=== PATIENT | female | born 1965 | race Two or more races ===

== ENCOUNTER 2017-09-19 23:07 | Emergency (ER) | payer MEDICAID ==
[~2017-09-19] VITALS: Ht 160 cm; Wt 98.9 kg
[2017-09-20 02:23] LABS: Basophils # (auto) 0 uL; Basophils % (auto) 0.4 % (0.0-2.0); Eosinophils # (auto) 0.1 uL; Eosinophils % (auto) 1.8 % (0.0-7.0); Hematocrit 41.3 % (36.0-46.0); Hemoglobin 14.4 g/dL (12.2-16.2); Lymphocytes # (auto) 2.4 uL; Lymphocytes % (auto) 31.4 % (10.0-50.0); Mean Corpuscular Hemoglobin 30.3 pg (28.0-32.0); Mean Corpuscular Hgb Conc. 34.9 g/dL (32.0-36.0); Mean Corpuscular Volume 86.9 fL (80.0-100.0); Monocytes # (auto) 0.4 uL; Monocytes % (auto) 5.7 % (0.0-12.0); Neutrophils # (auto) 4.7 uL; Neutrophils % (auto) 60.7 % (37.0-80.0); Nucleated Red Blood Cells % 0.2 %; Platelet Count (auto) 215 10^3/uL (140-450); Red Blood Cells 4.75 10^6/uL (4.0-5.20); Red Cell Distribution Width 13.4 % (11.8-14.3); White Blood Cell 7.8 10^3/uL (4.4-10.8)
[2017-09-20] MEDS ORDERED: InsuLIN REG 1unit/0.01ml Soln (100units/ml) IV ONE (02:30)
[2017-09-20] MEDS ORDERED: SODIUM CHLORIDE 0.9% 1,000 ML IV ONE (02:30)
[2017-09-20 02:38] LABS: Calcium 8.7 mg/dL (8.5-10.1); Potassium 4.5 mmol/L (3.5-5.1)
[2017-09-20 02:41] LABS: BUN/Creatinine Ratio 19.2; Bilirubin, Total 0.4 mg/dL (0.2-1.0); Total Protein 7.3 g/dL (6.4-8.2)
[2017-09-20 02:58] LABS: Urine Bacteria FEW /hpf (None Seen); Urine Blood 1+ /uL (Negative); Urine Hyaline Cast FEW /lpf (0 - 2); Urine Mucus FEW (None Seen); Urine Specific Gravity 1.031 (1.001-1.035); Urine WBC 39 /hpf (0 - 5)
[2017-09-20 05:13] VITALS: BP 116/77
== END 2017-09-20 05:03 | disposition home or self-care (01) ==
LOC: ER 23:13
DX: E11.65 Type 2 diabetes mellitus with hyperglycemia (principal); K31.9 Disease of stomach and duodenum, unspecified; E11.43 Type 2 diabetes mellitus with diabetic autonomic (poly)neuropathy; K31.84 Gastroparesis; N39.0 Urinary tract infection, site not specified; I10 Essential (primary) hypertension; Z79.4 Long term (current) use of insulin
CPT/HCPCS: 36415; 80053; 81001; 82010; 82962; 83036; 85025; 96361; 96374; 99284; J1815

== ENCOUNTER 2017-10-03 23:31 | Emergency (ER) | payer MEDICAID ==
[~2017-10-03] VITALS: Ht 160 cm; Wt 102.1 kg
[2017-10-04 00:36] LABS: Basophils # (auto) 0.1 uL; Basophils % (auto) 0.9 % (0.0-2.0); Eosinophils # (auto) 0.2 uL; Eosinophils % (auto) 2.4 % (0.0-7.0); Hematocrit 41.9 % (36.0-46.0); Hemoglobin 14.3 g/dL (12.2-16.2); Lymphocytes # (auto) 2.6 uL; Lymphocytes % (auto) 34.7 % (10.0-50.0); Mean Corpuscular Hemoglobin 29.8 pg (28.0-32.0); Mean Corpuscular Hgb Conc. 34.2 g/dL (32.0-36.0); Monocytes # (auto) 0.4 uL; Monocytes % (auto) 5.1 % (0.0-12.0); Neutrophils # (auto) 4.3 uL; Neutrophils % (auto) 56.9 % (37.0-80.0); Platelet Count (auto) 234 10^3/uL (140-450); Red Blood Cells 4.82 10^6/uL (4.0-5.20); Red Cell Distribution Width 13.4 % (11.8-14.3); White Blood Cell 7.5 10^3/uL (4.4-10.8)
[2017-10-04 00:56] LABS: Albumin 3.3 g/dL (3.4-5.0); Calcium 9.1 mg/dL (8.5-10.1); Potassium 4.1 mmol/L (3.5-5.1)
[2017-10-04 00:59] LABS: Bilirubin, Total 0.4 mg/dL (0.2-1.0); Total Protein 7.8 g/dL (6.4-8.2)
[2017-10-04] MEDS ORDERED: SODIUM CHLORIDE 0.9% 1,000 ML IVB ONE (02:34)
[2017-10-04] MEDS ORDERED: InsuLIN REG 1unit/0.01ml Soln (100units/ml) IV ONE (02:45)
[2017-10-04 02:56] LABS: Urine Bacteria FEW /hpf (None Seen); Urine Blood 1+ /uL (Negative); Urine WBC 30 /hpf (0 - 5)
[2017-10-04 04:11] VITALS: BP 124/88
[2017-10-04] MEDS ORDERED: CEFTRIAXONE SODIUM 2 GM in D5W 5% 50 ML IV ONE (04:30)
[2017-10-04] MEDS ORDERED: cefTRIAXone 1GM/10ml IVPUSH 20 ML IV ONE (04:36)
== END 2017-10-04 05:39 | disposition home or self-care (01) ==
LOC: ER 23:41
DX: E11.65 Type 2 diabetes mellitus with hyperglycemia (principal); N39.0 Urinary tract infection, site not specified; I10 Essential (primary) hypertension
CPT/HCPCS: 36415; 80053; 81001; 82962; 85025; 96361; 96365; 96375; 99285; J1815; J0696; J7060

== ENCOUNTER 2019-11-08 17:25 | Inpatient (IN) | payer MEDICAID ==
[~2019-11-08] VITALS: Ht 175.3 cm; Wt 104.7 kg
[2019-11-08 18:27] LABS: Basophils # (auto) 0.1 10 ^3/uL (0-0.2); Basophils % (auto) 0.7 % (0.0-2.0); Eosinophils # (auto) 0.3 10 ^3/uL (0-0.8); Eosinophils % (auto) 3.7 % (0.0-7.0); Hematocrit 27.6 % (36.0-46.0); Hemoglobin 9.2 g/dL (12.2-16.2); Lymphocytes # (auto) 1.7 10 ^3/uL (0.4-5.4); Lymphocytes % (auto) 20.1 % (10.0-50.0); Mean Corpuscular Hemoglobin 29.4 pg (28.0-32.0); Mean Corpuscular Hgb Conc. 33.3 g/dL (32.0-36.0); Mean Corpuscular Volume 88.4 fL (80.0-100.0); Monocytes # (auto) 0.5 10 ^3/uL (0-1.3); Monocytes % (auto) 5.8 % (0.0-12.0); Neutrophils # (auto) 5.8 10 ^3/uL (1.6-8.6); Neutrophils % (auto) 69.7 % (37.0-80.0); Nucleated Red Blood Cells % 0.1 %; Platelet Count (auto) 238 10^3/uL (140-450); Red Blood Cells 3.12 10^6/uL (4.0-5.20); White Blood Cell 8.3 10^3/uL (4.4-10.8)
[2019-11-08 18:44] LABS: Albumin 2.5 g/dL (3.4-5.0); Calcium 8.1 mg/dL (8.5-10.1)
[2019-11-08 18:54] LABS: BUN/Creatinine Ratio 23.6; Bilirubin, Total 0.2 mg/dL (0.2-1.0)
[2019-11-08 18:58] LABS: Potassium 6.3 mmol/L (3.5-5.1)
[2019-11-08] MEDS ORDERED: SODIUM BICARBONATE 8.4 % INJ 50ML VIAL IV ONE (19:15)
[2019-11-08] MEDS ORDERED: CALCIUM GLUC 4.65meq/50ml D5AE 50 ML IV ONE (19:15)
[2019-11-08] MEDS ORDERED: SODIUM BICARBONATE 8.4% INJ 50ML SYRINGE ONE (19:51)
[2019-11-08] MEDS ORDERED: SODIUM ZIRCONIUM CYCL 10 GM PAK PO ONE (20:45)
[2019-11-08] MEDS ORDERED: DEXTROSE (50%) 50ML SYRG IV ONE (20:45)
[2019-11-08] MEDS ORDERED: InsuLIN REG 1unit/0.01ml Soln (100units/ml) IV ONE (20:45)
[2019-11-08] MEDS ORDERED: TEMAZEPAM 15 MG CAP PO PRN (21:00)
[2019-11-08] MEDS ORDERED: ACETAMINOPHEN 325 MG TAB PO PRN (21:00)
[2019-11-08] MEDS ORDERED: ONDANSETRON HCL 4 MG/2 ML VIAL IV PRN (21:00)
[2019-11-08] MEDS ORDERED: cloNIDine HCL 0.1 MG TAB PO PRN (21:00)
[2019-11-08] MEDS ORDERED: DEXTROSE (50%) 50ML SYRG IV PRN (21:00)
[2019-11-08] MEDS ORDERED: NITROGLYCERIN 0.4 MG SL TAB SL PRN (21:45)
[2019-11-08] MEDS ORDERED: MORPHINE SULF INJ 2 MG/ML SYRINGE 1ML IV PRN (21:45)
[2019-11-08] MEDS: InsuLIN REG 1unit/0.01ml Soln (100units/ml) SC SCH (22:00)
[2019-11-08] MEDS: ACCU-CHEK COMFORT CURVE STRIP VI SCH (22:23)
[2019-11-09] VITALS (9 sets, daily range): BP systolic 124–165; BP diastolic 67–81
--- NOTE | 2019-11-09 | NUR ---
Telemetry admit from [facility] admitted to Telemetry unit after SBAR received. Patient oriented to Isabela Beard, RN primary RN, unit, room, bed, and unit policies regarding patient care and visiting hours. Patient now on continuous telemetry monitoring, tele box # [id number] and telemetry reading on arrival to unit is SR. Patient weighed by bedscale and encouraged to call if they need something. All questions and concerns addressed, patient verbalized understanding, will continue to monitor Note: []
--- NOTE | 2019-11-09 00:30 | NUR ---
Patient refused for primary RN to check wounds and take pictures of it. Per patient, she had diabetic foot ulcer on left heel and right great toe. Per patient, she doesn't want anybody touch her wounds despite explaining the reason for checking it. Noted dressing dry and intact, will continue to monitor
--- NOTE | 2019-11-09 00:31 | NUR ---
Pictures of wounds were not taken at this time
[2019-11-09] MEDS ORDERED: GLIP5TAB12 PO (02:16)
[2019-11-09] MEDS ORDERED: LISI10TA6 PO (02:16)
[2019-11-09] MEDS ORDERED: METF-371 PO (02:16)
[2019-11-09] MEDS: ACCU-CHEK COMFORT CURVE STRIP VI SCH ×4 (05:53→21:54)
[2019-11-09] MEDS: InsuLIN REG 1unit/0.01ml Soln (100units/ml) SC SCH ×4 (05:53→22:00)
[2019-11-09 06:19] LABS: BUN/Creatinine Ratio 27.1; Calcium 8.3 mg/dL (8.5-10.1); Potassium 5.4 mmol/L (3.5-5.1)
[2019-11-09 06:26] LABS: Basophils # (auto) 0 10 ^3/uL (0-0.2); Basophils % (auto) 0.6 % (0.0-2.0); Eosinophils # (auto) 0.3 10 ^3/uL (0-0.8); Eosinophils % (auto) 3.7 % (0.0-7.0); Hematocrit 25.4 % (36.0-46.0); Hemoglobin 8.7 g/dL (12.2-16.2); Lymphocytes # (auto) 1.6 10 ^3/uL (0.4-5.4); Lymphocytes % (auto) 23.9 % (10.0-50.0); Mean Corpuscular Hemoglobin 30.2 pg (28.0-32.0); Mean Corpuscular Hgb Conc. 34.1 g/dL (32.0-36.0); Mean Corpuscular Volume 88.7 fL (80.0-100.0); Monocytes # (auto) 0.4 10 ^3/uL (0-1.3); Monocytes % (auto) 5.8 % (0.0-12.0); Neutrophils # (auto) 4.4 10 ^3/uL (1.6-8.6); Nucleated Red Blood Cells % 0.1 %; Platelet Count (auto) 214 10^3/uL (140-450); Red Blood Cells 2.87 10^6/uL (4.0-5.20); Red Cell Distribution Width 13.9 % (11.8-14.3); White Blood Cell 6.7 10^3/uL (4.4-10.8)
--- NOTE | 2019-11-09 08:00 | NUR ---
RECEIVED PATIENT ALERT AND ORIENTED X4, NOT IN DISTRESS, CLEAR LS IN BILATERAL UPPER AND LOWER LUNG LOBES, RR=16 SAT=96%, DEEP BREATHING AND COUGHING WAS ENCOURAGED, DEMONSTRATED AND VERBALIZED UNDERSTANDING, DENIED CP AND SOB, SR R=78 N TELE MONITOR, ABDOMEN SOFT WITH ACTIVE BS, TOLERATED 100% OF PROVIDED BREAKFAST TRAY, LAST BM=11/08/19 REPORTED, GENERAL SKIN INTACT WARM TO TOUCH, REDIAL AND PEDAL PULSES PALPABLE, CAP REFILL <3 SECONDS, LT. HEEL AND RT, BIG TOE WOUND NOTED, REFUSED WOUND ASSESSMENT, PENDING WOUND ASSESSMENT, WOUND ASSESSMENT EDUCATION PROVIDED, VERBALIZED UNDERSTANDING, RESTING ON BED AND WATCHING TV AT THIS MOMENT, HEAD OF BED ELEVATED, BED ON LOW POSITION, RAILS UP X2, CALL LIGHT ON REACH, PENDING SS AND NEPHRO CONSULT, POTASSIUM L=5.4, HOSPITALIST WAS PAGED AND WAITING FOR CALL BACK, WILL CONTINUE MONITORING.
[2019-11-09] MEDS ORDERED: FUROSEMIDE 40 MG/4 ML VIAL IV ONE ×2 (08:15→15:45)
--- NOTE | 2019-11-09 09:00 | NUR ---
DR. CORDOVA CALLED BACK, PENDING LASIX IV X1 ORDERED, WILL CONTINUE MONITORING.
[2019-11-09] MEDS ORDERED: SODIUM CHLORIDE 0.9% 1,000 ML IV SCH ×2 (10:00→14:00)
[2019-11-09] MEDS: PANTOPRAZOLE 40 MG TAB PO SCH (10:38)
--- NOTE | 2019-11-09 12:52 | NUR ---
Not in distress, denied pain, at 1200 CG=543/81 P=74 t=97.7 RR=20 Sat=97%, rechecked ZR=191/82 P=77, Clonidine PO PRN was given as ordered, wound consult and wound care was done by wound care nurse, tolerated and cooperated well, resting on bed, will continue monitoring.
--- NOTE | 2019-11-09 13:00 | NUR ---
WOUND CARE NOTE: IN TO SEE PATIENT PER WOUND CONSULT REQUEST AT THIS TIME. PATIENT RECENTLY ADMITTED TO [facility] WITH DIAGNOSIS OF ACUTE RENAL FAILURE WITH HYPERKALEMIA. PATIENT HAS CURRENT RALPH SCORE OF 17. PATIENT IS NOTED TO BE FULLY AMBULATORY, CAN SELF TURN/REPOSITION SELF. PATIENT NOTED TO HAVE WOUNDS TO BILATERAL FEET UPON INITIAL ASSESSMENT MADE AT TIME OF ADMIT. PATIENT REFUSED WOUND PHOTOS AT THAT TIME. PATIENT STATES THAT SHE RECEIVES HOME HEALTH CARE DRESSING CHANGES TO WOUND ON LEFT PLANTAR HEEL 3 X WEEKLY. SHE IS ALSO AWAITING AUTHORIZATION FOR FURTHER WOUND CARE TO BE DONE WITH PHYSICIANS AT [facility] OUT PATIENT CLINIC, AND DESIRES FOR MAINTENANCE OF WOUND/DRESSING CHANGES TO BE DONE WHILE IN THE HOSPITAL, REFUSING CONSULTATION BY DIRECTOR DIGITAL. PATIENT IS NOTED TO HAVE A LARGE 6 X 6 X1 CM DFU ULCER TO LEFT PLANTAR HEEL. WOUND HAS LARGE CALLOUS RING, HARD PLACK ESCHAR FROM 1200 TO 0500. REMAINING WOUND BED IS PALE RED. LIGHT TO MODERATE SEROUS DRAINAGE NOTED ON WOUND DRESSING, MILD ODOR. WOUND PHOTO TAKEN AT THIS TIME FOR REFERENCE. CLEANSED WITH WOUND CLEANSER, PATTED DRY, APPLIED THERAHONEY, OPTIFOAM AG TO WOUND. WRAPPED FOOT WITH KERLIX, SECURING WITH TAPE. FOAM OFFLOADING BOOT APPLIED. RIGHT PLANTAR # 1 TOE IS NOTED TO HAVE A DFU, CLOSED WITH 1 X 1 CM PINK CALLOUS. LEFT OPEN TO AIR. RECOMMEND: EOD/PRN DRESSING CHANGE TO LEFT FOOT WOUND, FOAM OFFLOADING BOOT TO LEFT FOOT, DIETARY CONSULT, ELEVATION TO LEFT FOOT UP ONTO PILLOWS WHEN IN BED, SKIN/WOUND CARE PLAN, CONTINUED MONITORING BY WOUND CARE TEAM, FOLLOW UP WITH [facility] OUT PATIENT WOUND CARE CLINIC AND HOME HEALTH CARE NURSE POST DISCHARGE. Addendum: 11/09/19 at 1338 by Hilda Soto RN Amended: Links added.
[2019-11-09] MEDS ORDERED: hydrALAZINE HCL 20 MG/ML VL IV PRN (14:15)
--- NOTE | 2019-11-09 14:20 | NUR ---
assessment re: pallavi consult lives in a board and care and dc planning Patient is a 54 year old female who is alert and oriented. Patients cognitive abilities are intact. Prior to admission patient lived home at a room and board and functioned independently. Patient informed me she is able to care for her own ADLs. Per patient she will return home to her prior living arrangements post discharge and she will drive herself home. Patient has a fww for home use. Patients PCP is Dr Pavon. Patient has no safety concerns regarding returning home. Patient has no post discharge needs identified. I informed patient she has a right to speak to a social media coordinator regarding all care. I informed patient she has a right to participate in any and all discharge planning. Patient does not have a POA and advanced directive. I have offered patient information on POA and advanced directives. I informed the patient the advantages and benefits of having an Advanced Directive. Patient verbalized understanding and agreed to discharge plan. Addendum: 11/09/19 at 1425 by Heather BARNETT Amended: Links added.
--- NOTE | 2019-11-09 14:29 | NUR ---
NOT IN DISTRESS, DENIED PAIN VS T=97.4 RR=18 SAT=96% P=65 BP= 122/65, RESTING AND SLEEPING ON BED AT THIS MOMENT, WILL CONTINUE MONITORING.
--- NOTE | 2019-11-09 15:30 | NUR ---
POTASSIUM L=5.9 REPORTED, DR. CARBAJAL WAS NOTIFIED AND AWARE, PENDING LASIX IV ORDERED, WILL CONTINUE MONITORING.
[2019-11-09 15:33] LABS: % Iron Saturation 19.8 % (15-50)
--- NOTE | 2019-11-09 15:43 | NUR ---
POSITIVE MRSA NARES REPORTED, DR. WHITING WAS PAGED FOR NOTIFICATION AND FOLLOW UP,WAITING FOR CALL BACK, CHARGE NURSE BUCKY WAS NOTIFIED AND AWARE, WILL CONTINUE MONITORING.
[2019-11-09] MEDS ORDERED: InsuLIN REG 1unit/0.01ml Soln (100units/ml) IV ONE (15:45)
[2019-11-09] MEDS ORDERED: ALBUTEROL SULF 2.5 MG/0.5ML(0.5%) NEB SOLN NEB ONE (15:45)
[2019-11-09] MEDS ORDERED: SODIUM BICARBONATE 8.4% INJ 50ML SYRINGE IV ONE (15:45)
[2019-11-09] MEDS ORDERED: SODIUM ZIRCONIUM CYCL 10 GM PAK PO ONE (15:45)
[2019-11-09] MEDS ORDERED: CALCIUM GLUC 4.65meq/50ml D5AE 50 ML IV ONE (15:45)
[2019-11-09] MEDS ORDERED: SODIUM BICARBONATE 650 MG TAB PO ONE (15:45)
[2019-11-09] MEDS ORDERED: DEXTROSE (50%) 50ML SYRG IV ONE (15:45)
[2019-11-09] MEDS: SODIUM BICARBONATE 650 MG TAB PO SCH ×2 (18:12→21:42)
[2019-11-09] MEDS ORDERED: amLODIPine BESYLATE 5 MG TAB PO ONE (18:30)
--- NOTE | 2019-11-09 19:22 | NUR ---
NOT IN DISTRESS, DENIED PAIN, SITTING ON BED EATING DINNER, REPORT WAS GIVEN TO THE COMPENSATION AND HRIS ANALYST RN.
--- NOTE | 2019-11-09 19:40 | NUR ---
Opening Shift Note Assumed care of patient, awake and alert. No S/S of distress/SOB or pain. Instructed on POC and to call for assist PRN, patient verbalized understanding, call light within reach, will continue to monitor for changes Q1hr and PRN.
[2019-11-09 20:15] LABS: Calcium 8.2 mg/dL (8.5-10.1); Potassium 4.4 mmol/L (3.5-5.1)
[2019-11-09 20:19] LABS: BUN/Creatinine Ratio 26.3
[2019-11-09] MEDS: METOPROLOL TARTRATE 25 MG TAB PO SCH (21:44)
[2019-11-09] MEDS: SODIUM ZIRCONIUM CYCL 10 GM PAK PO SCH (22:00)
[2019-11-10 05:00] VITALS: BP 142/68
[2019-11-10] MEDS: SODIUM ZIRCONIUM CYCL 10 GM PAK PO SCH ×3 (05:37→21:19)
[2019-11-10] MEDS: SODIUM BICARBONATE 650 MG TAB PO SCH ×4 (05:37→21:20)
[2019-11-10] MEDS: ACCU-CHEK COMFORT CURVE STRIP VI SCH ×4 (06:43→21:20)
[2019-11-10] MEDS: InsuLIN REG 1unit/0.01ml Soln (100units/ml) SC SCH ×4 (07:02→21:31)
--- NOTE | 2019-11-10 07:02 | NUR ---
IV on LAC leaking, removed aseptically with catheter intact, patient tolerated well IV insertion IV access obtained, via clean sterile technique by inserting 22 gauge catheter at after [1] attempt(s). IV secured properly. No trauma to site. Patient tolerated well. NOTE: []
--- NOTE | 2019-11-10 08:00 | NUR ---
RECEIVED PATIENT ALERT AND ORIENTED, NOT IN DISTRESS, CLEAR LS IN BILATERAL UPPER AND LOWER LUNG LOBES,DEEP BREATHING AND COUGHING ENCOURAGED, DEMONSTRATED AND VERBALIZED UNDERSTANDING, RR=18 SAT=97%, SR ON TELE MONITOR R=78, ABDOMEN SOFT AND ROUND WITH HYPOACTIVE BS, LAST BM=07/10/19 REPORTED, SKIN INTACT WARM TO TOUCH, RADIAL AND PEDAL PULSES PALPABLE, CAP REFILL <3 SECONDS, RT. TOE AND LT. HEEL WOUNDS COVERED WITH DRY AND INTACT DRESSINGS, NEXT WOUND DRESSING CHANGE IS ON 11/11/19 ORDERED, DENIED PAIN, SITTING ON BED EATING BREAKFAST, TOLERATING WELL, HEAD OF BED ELEVATED, BED ON LOW POSITION, RAILS UP X2, CALL LIGHT ON REACH, WILL CONTINUE MONITORING.
[2019-11-10 08:05] LABS: Hematocrit 24.7 % (36.0-46.0); Hemoglobin 8.5 g/dL (12.2-16.2)
[2019-11-10 08:28] LABS: Calcium 8.2 mg/dL (8.5-10.1); Potassium 5.4 mmol/L (3.5-5.1)
[2019-11-10 08:34] LABS: Magnesium 2.9 mg/dL (1.6-2.6)
[2019-11-10 08:47] VITALS: BP 146/72
[2019-11-10] MEDS ORDERED: ALBUTEROL SULF 2.5 MG/0.5ML(0.5%) NEB SOLN NEB ONE (09:15)
[2019-11-10] MEDS ORDERED: FUROSEMIDE 40 MG/4 ML VIAL IV ONE (09:15)
--- NOTE | 2019-11-10 09:15 | NUR ---
OUT OFF BED ENCOURAGED, COOPERATED WELL, AMBULATED WITH WALKER AROUND THE UNIT X2, BACK TO THE ROOM SITTING ON THE CHAIR AND WATCHING TV AT THIS MOMENT.
--- NOTE | 2019-11-10 09:34 | NUR ---
Respiratory note: At bedside to administer medneb tx for hyperkalemia, pt tolerating well, no adverse reactions noted. HR 75, RR 18, SPO2 97% on room air. Breath sounds clear throughout, pt denies SOB, no s/s of respiratory distress noted.
[2019-11-10] MEDS: ASPirin 81 mg TAB PO SCH (09:57)
[2019-11-10] MEDS: METOPROLOL TARTRATE 25 MG TAB PO SCH ×2 (09:58→21:20)
[2019-11-10] MEDS: PANTOPRAZOLE 40 MG TAB PO SCH (09:59)
[2019-11-10] MEDS: amLODIPine BESYLATE 5 MG TAB PO SCH (09:59)
[2019-11-10 12:45] VITALS: BP 116/56
--- NOTE | 2019-11-10 14:00 | NUR ---
POTASSIUM L=5.4, DR. RAVEN Kendrick WAS NOTIFIED AND AWARE, NOT IN DISTRESS DENIED PAIN, WILL CONTINUE MONITORING.
[2019-11-10 15:28] VITALS: BP 131/70
[2019-11-10 16:39] VITALS: BP 129/68
[2019-11-10] MEDS ORDERED: LACTULOSE 20Gm/30ML SOLN PO ONE (18:45)
--- NOTE | 2019-11-10 19:15 | NUR ---
PENDING LACTULOSE PO X1, WILL BE GIVEN AT 2100 REQUESTED BY PATIENT, NOT IN DISTRESS, DENIED PAIN, RESTING ON BED, REPORT WAS GIVEN TO THE LAW FIRM PARTNER RN.
--- NOTE | 2019-11-10 19:36 | NUR ---
Opening Shift Note Received report and assumed care of patient. Patient is awake and alert. No signs or symptoms of distress noted, patient currently denies pain. Instructed patient on plan of care and to call for assistance as needed. Will continue to monitor.
[2019-11-10] MEDS: MUPIROCIN 2% OINT 15gm or 22gm EACHNOSTRI SCH (21:20)
[2019-11-10 21:59] VITALS: BP 122/72
[2019-11-10] MEDS ORDERED: ATORVASTATIN 20 MG TAB PO SCH (22:00)
[2019-11-11 05:00] VITALS: BP 124/67
[2019-11-11] MEDS: SODIUM ZIRCONIUM CYCL 10 GM PAK PO SCH ×2 (06:17→14:00)
[2019-11-11] MEDS: SODIUM BICARBONATE 650 MG TAB PO SCH ×2 (06:17→13:00)
[2019-11-11 06:26] LABS: Potassium 4.7 mmol/L (3.5-5.1)
[2019-11-11] MEDS: InsuLIN REG 1unit/0.01ml Soln (100units/ml) SC SCH ×2 (06:26→12:00)
[2019-11-11] MEDS: ACCU-CHEK COMFORT CURVE STRIP VI SCH ×2 (06:26→12:00)
[2019-11-11 06:28] LABS: BUN/Creatinine Ratio 24.1
--- NOTE | 2019-11-11 07:15 | NUR ---
OPENING NOTE RECEIVED REPORT FROM NOC RN. PATIENT WAS ADMITTED R/T INCREASED POTASSIUM LEVELS. PATIENT IS RESTING IN BED QUIETLY WITHOUT C/O SEVERE PAIN AND OR DISTRESS.
[2019-11-11 09:00] VITALS: BP 136/67
[2019-11-11] MEDS: PANTOPRAZOLE 40 MG TAB PO SCH (10:00)
[2019-11-11] MEDS: ASPirin 81 mg TAB PO SCH (10:00)
[2019-11-11] MEDS: amLODIPine BESYLATE 5 MG TAB PO SCH (10:00)
[2019-11-11] MEDS: METOPROLOL TARTRATE 25 MG TAB PO SCH (10:00)
[2019-11-11] MEDS: MUPIROCIN 2% OINT 15gm or 22gm EACHNOSTRI SCH (12:30)
[2019-11-11 13:00] VITALS: BP 126/68
[2019-11-11] MEDS ORDERED: SODI650T PO (13:54)
[2019-11-11] MEDS ORDERED: PANT40T PO (13:54)
[2019-11-11] MEDS ORDERED: MET25T PO (13:54)
[2019-11-11] MEDS ORDERED: ASPI81CH43 PO (13:54)
[2019-11-11] MEDS ORDERED: AML5T PO (13:54)
[2019-11-11] MEDS ORDERED: ATOR20TA50 PO (13:54)
[2019-11-11 15:25] VITALS: BP 126/68
--- NOTE | 2019-11-11 16:45 | NUR ---
PATIENT REFUSED RIGHT FOOT WOUND PICTURES
--- NOTE | 2019-11-11 16:55 | NUR ---
Discharge instructions given as ordered. Encourage to follow up with PMD as instructed. All questions and concerns addressed. Patient verbalized understanding. Medication reconciliation form completed and copy given to patient. IV removed with catheter intact, pressure dressing applied. Telemetry unit returned to ICU. Patient taken to [facility]HOU[facility] via ROLLATOR with all personal belongings, accompanied by staff, AND PATIENT THEN LEFT VIA ER WAITING ROOM, PATIENT STATED SHE COULD LEAVE ON HER OWN.. No distress noted at time of departure.
== END 2019-11-11 16:55 | disposition home or self-care (01) | DRG 469 ==
LOC: ER 17:25 → TELE 17:26 → TELE-WESTW 23:32
PROVIDERS: ADMIT Nurse Practitioner; ATTEND Internal Medicine
DX: N17.0 Acute kidney failure with tubular necrosis (principal); E11.22 Type 2 diabetes mellitus with diabetic chronic kidney disease; E11.51 Type 2 diabetes mellitus with diabetic peripheral angiopathy without gangrene; E44.1 Mild protein-calorie malnutrition; E11.621 Type 2 diabetes mellitus with foot ulcer; E66.01 Morbid (severe) obesity due to excess calories; E87.5 Hyperkalemia; I12.9 Hypertensive chronic kidney disease with stage 1 through stage 4 chronic kidney disease, or unspecified chronic kidney disease; N18.4 Chronic kidney disease, stage 4 (severe); L97.929 Non-pressure chronic ulcer of unspecified part of left lower leg with unspecified severity; Z68.34 Body mass index [BMI] 34.0-34.9, adult; D63.8 Anemia in other chronic diseases classified elsewhere; Z80.3 Family history of malignant neoplasm of breast; Z82.3 Family history of stroke; Z82.49 Family history of ischemic heart disease and other diseases of the circulatory system; Z83.3 Family history of diabetes mellitus; Z11.59 Encounter for screening for other viral diseases
CPT/HCPCS: 36415; 71045; 76775; 80048; 80053; 80061; 82962; 83036; 83540; 83550; 83735; 83880; 84132; 84443; 84484; 85014; 85018; 85025; 87081; 93005; 93306; 93926; 94640; 94644; 96365; 96375; 96376; G0378; J0610; J1815

== ENCOUNTER 2024-11-27 11:51 | Inpatient (IN) | payer MEDICARE, MEDICAID ==
[~2024-11-27] VITALS: Ht 160 cm; Wt 106.2 kg
[~2024-11-27 11:51] MED LIST: AML5T PO; ASPI81CH43 PO; ATOR20TA50 PO; MET25T PO; PANT40T PO; SODI650T PO
--- NOTE | 2024-11-27 12:27 | ED.PDOC ---
GI ASSESSMENT HPI Comments This is a 59 year old female presenting to the ED with chief complaint of abdominal pain. Patient reports that she has been experiencing abdominal pain with associated nausea, vomiting, constipation, and inability to void since last night. Patient relays that she took some gas medication prior to arrival. Patient denies any diarrhea, fever, chills, chest pain, SOB, or dysuria. Time Seen by MD: 12:24 Primary Care Provider: DR. REINA Reviewed Notes: Nurses Notes, Medications, Allergies Allergies: Coded Allergies: NO KNOWN ALLERGIES (Unverified , 09/19/17) Home Meds Active Scripts Pantoprazole Sodium Sesquihydr (Pantoprazole Sodium) 40 Mg Tab, 40 MG PO DAILY, #30 TAB Prov:LINDSAY WHITING MD 11/11/19 Sodium Bicarbonate (Sodium Bicarbonate) 650 Mg Tab, 650 MG PO BID, #60 TAB Prov:LINDSAY WHITING MD 11/11/19 Metoprolol Tartrate (Lopressor) 25 Mg Tb, 25 MG PO BID, #60 TAB Prov:LINDSAY WHITING MD 11/11/19 Atorvastatin Calcium (ATORVASTATIN CALCIUM) 20 Mg Tab, 20 MG PO HS, #30 TAB Prov:LINDSAY WHITING MD 11/11/19 Aspirin (Asa) 81 Mg Ch, 81 MG PO DAILY, #30 TAB.CHEW Prov:LINDSAY WHITING MD 11/11/19 Amlodipine Besylate (NORVASC TABLET) 5 Mg Tb, 10 MG PO DAILY, #30 TAB Prov:LINDSAY WHITING MD 11/11/19 Information Source: Patient Mode of Arrival: Ambulatory Timing: Hours Duration: Since onset Prehospital treatment: None Quality: Aching Vomitus: Watery Stool: Impaction Severity: Moderate Recent: None Recent Hx of: None Pain Location: Diffuse Modifying Factors: Nothing Associated sign and symptoms: Nausea, Vomiting, Constipation, Abdominal Pain Past Medical History PAST MEDICAL HISTORY: Anemia, CKF, DM, High Lipids, HTN Surgical History: Denies all surgeries DERMATOLOGY SPECIALIST History: Denies all DERMATOLOGY SPECIALIST Hx Family History Family History: Reviewed,noncontributory to illness, Family hx of DM, Family hx of HTN Social History Smoker: Non-Smoker Alcohol: Occasionally Drugs: Denies Drug Use Lives In: Home Constitutional: denies: chills, diaphoresis, fatigue, fever, malaise, sweats, weakness, others EENTM: denies: blurred vision, double vision, ear bleeding, ear discharge, ear drainage, ear pain, ear ringing, eye pain, eye redness, hearing loss, mouth pain, mouth swelling, nasal discharge, nose bleeding, nose congestion, nose pain, photophobia, tearing, throat pain, throat swelling, voice changes, others Respiratory: denies: cough, hemoptysis, orthopnea, SOB at rest, shortness of breath, SOB with excertion, stridor, wheezing, others Cardiovascular: denies: chest pain, dizzy spells, diaphoresis, Dyspnea on exertion, edema, irregular heart beat, left arm pain, lightheadedness, palpitations, PND, syncope, others Gastrointestinal: reports: abdominal pain, constipated, nausea, vomiting; denies: abdomen distended, blood streaked bowels, diarrhea, dysphagia, difficulty swallowing, hematemesis, melena, poor appetite, poor fluid intake, rectal bleeding, rectal pain, others Genitourinary: reports: others (Inability to void); denies: abnormal vagina bleeding, burning, dyspareunia, dysuria, flank pain, frequency, hematuria, incontinence, pain, , vagina discharge, urgency Neurological: denies: dizziness, fainting, headache, left sided numbness, left sided weakness, numbness, paresthesia, pre-existing deficit, right sided numbness, right sided weakness, seizure, speech problems, tingling, tremors, weakness, others Musculoskeletal: denies: back pain, gout, joint pain, joint swelling, muscle pain, muscle stiffness, neck pain, others Integumetry: denies: bruises, change in color, change in hair/nails, dryness, laceration, lesions, lumps, rash, wounds, others Allergic/Immunocompromised: denies: Difficulty Healing, Frequent Infections, Hives, Itching, others Hematologic/Lymphatic: denies: anemia, blood clots, easy bleeding, easy bruising, swollen glands, others Endocrine: denies: excessive hunger, excessive sweating, excessive thirst, excessive urination, flushing, intolerance to cold, intolerance to heat, unexplained weight gain, unexplained weight loss, others Psychiatric: denies: anxiety, bipolar disorder, depression, hopeless, panic d isorder, schizophrenia, sleepless, suicidal, others All Other Systems: Reviewed and Negative Physical Exam General Appearance: No Apparent Distress, Normal HEENT: Normal ENT Inspection, Pharynx Normal, TMs Normal, Other (Dry mucous membranes) Neck: Full Range of Motion, Non-Tender, Normal, Normal Inspection Respiratory: Chest Non-Tender, Lungs Clear, No Accessory Muscle Use, No Respiratory Distress, Normal Breath Sounds Cardiovascular: No Edema, No JVD, No Murmur, No Gallop, Normal Peripheral Pulses, Regular Rate/Rhythm Breast Exam: Deferred Gastrointestinal: No Organomegaly, Non Tender, No Pulsatile Mass, Soft, Other (Decreased bowel sounds, non-tender, no distention) Genitalia: Deferred Pelvic: Deferred Rectal: Deferred Extremities: No calf tenderness, Normal capillary refill, Normal inspection, Normal range of motion, Non-tender, No pedal edema Musculoskeletal : Apperance: Normal Neurologic: Alert, medicine man II-XII nml as Tested, No Motor Deficits, Normal Affect, Normal Mood, No Sensory Deficits Cerebellar Function: Normal Reflexes: Normal Skin: Dry, Normal Color, Warm Lymphatic: No Adenopathy Was a procedure done? Was a procedure done?: No GI differential Dx Differential Diagnosis: Appendicitis, Bowel Obstruction, Cholangitis, Cholecystitis, Constipation, Diverticular disease, Esophagitis, Gastritis/PUD, Gastroenteritis, GI hemorrhage, Hernia, Hepatitis, Inflammatory BD, Ischemic Bowel, Pancreatitis, Urinary Obstruction, UTI, Urolithiasis, Dehydration, Electrolyte Imbalance, Food Poisoning, Bacterial, Hypovolemia, Impaction, Renal Failure, Mass, Stress Ulcer, Kidney Stone X-Ray, Labs, Meds, VS Vital Signs Date Time Temp Pulse Resp B/P (MAP) Pulse Ox O2 Delivery O2 Flow Rate FiO2 11/27/24 12:15 98.7 79 18 111/59 (76) 96 98.7 Lab Test 11/27/24 15:45 11/27/24 14:53 Range/Units White Blood Count 21.5 H 4.4-10.8 10^3/uL Red Blood Count 3.58 L 4.0-5.20 10^6/uL Hemoglobin 11.5 L 12.2-16.2 g/dL Hematocrit 33.2 L 36.0-46.0 % Mean Corpuscular Volume 92.6 80.0-100.0 fL Mean Corpuscular Hemoglobin 32.1 H 28.0-32.0 pg Mean Corpuscular Hemoglobin Concent 34.7 32.0-36.0 g/dL Red Cell Distribution Width 14.0 11.8-14.3 % Platelet Count 222 140-450 10^3/uL Mean Platelet Volume 7.9 6.9-10.8 fL Neutrophils (%) (Auto) 91.7 H 37.0-80.0 % Lymphocytes (%) (Auto) 3.8 L 10.0-50.0 % Monocytes (%) (Auto) 4.1 0.0-12.0 % Eosinophils (%) (Auto) 0.0 0.0-7.0 % Basophils (%) (Auto) 0.4 0.0-2.0 % Neutrophils # (Auto) 19.7 H 1.6-8.6 10 ^3/uL Lymphocytes # (Auto) 0.8 0.4-5.4 10 ^3/uL Monocytes # (Auto) 0.9 0-1.3 10 ^3/uL Eosinophils # (Auto) 0 0-0.8 10 ^3/uL Basophils # (Auto) 0.1 0-0.2 10 ^3/uL Nucleated Red Blood Cells 0.0 % Sodium Level 135 L 136-145 mmol/L Potassium Level 3.7 3.5-5.1 mmol/L Chloride Level 93 L 98-107 mmol/L Carbon Dioxide Level 30 20-31 mmol/L Anion Gap 12 5-15 Blood Urea Nitrogen 41 H 9-23 mg/dL Creatinine 5.54 H 0.550-1.02 mg/dL Glomerular Filtration Rate Calc 8 >90 mL/min BUN/Creatinine Ratio 7.4 L 10.0-20.0 Serum Glucose 257 H 74-106 mg/dL Calcium Level 10.8 H 8.7-10.4 mg/dL Total Bilirubin 0.7 0.2-1.0 mg/dL Aspartate Amino Transferase (AST) 14 13-40 U/L Alanine Aminotransferase (ALT) 16 7-40 U/L Alkaline Phosphatase 101 46-116 U/L Total Protein 7.9 5.7-8.2 g/dL Albumin 4.8 3.2-4.8 g/dL Current Medications Medications (Trade) Dose Ordered Sig/Rios Route Start Time Stop Time Status Last Admin Ondansetron HCl (Zofran Po) 4 mg ONCE ONCE PO 11/27/24 14:30 11/27/24 14:39 DC 11/27/24 15:11 Metoclopramide HCl (Reglan Injection) 10 mg ONCE ONCE IV 11/27/24 15:45 11/27/24 15:46 DC 11/27/24 16:30 Time of 1ST Reevaluation: 13:13 Reevaluation 1ST: Unchanged Patient Education/Counseling: Diagnosis, Treatment, Prognosis, Need For Follow Up Family Education/Counseling: Diagnosis, Treatment, Prognosis, Need For Follow Up Comments pt has obstructive uropathy from ureteral stones, with nausea, vomiting, leukocytosis. although pt is on HD, she reports that she still makes urine, but now is unable to make urine. the possibility of an infection above the level of the obstruction exists. pt will be admitted for urological consult, antibiotic, symptom control Additional Information Reviewed patient's previous visit(s): 11/07/24 for acute renal failure The following tests were ordered, and results were reviewed by me: Additional information was gathered from interviewing the following independent historian: I reviewed and agreed with the following test results read by other provider: I discussed treatments and results with medical personnel and: Patient Comprehensive systems review obtained and negative except for what is stated in the HPI. SEPSIS Sepsis Screen Physician Orders Kub Abdomen Single View (11/27/24 14:30) Urinalysis (11/27/24 15:43) Ct Ab Pel Wo Con-No Oral Or Iv (11/27/24 15:43) Sodium Chloride 0.9% (11/27/24 16:45) Ceftriaxone 1gm/50ml D5w (Rocephin) (11/27/24 16:45) Vital Signs Date Time Temp Pulse Resp B/P (MAP) Pulse Ox O2 Delivery O2 Flow Rate FiO2 11/27/24 12:15 98.7 79 18 111/59 (76) 96 98.7 Laboratory Tests Test 11/27/24 15:45 White Blood Count 21.5 10^3/uL (4.4-10.8) H Medications Medications Dose Ordered Sig/Rios Route Start Time Stop Time Status Last Admin Dose Admin Metoclopramide HCl 10 mg ONCE ONCE IV 11/27/24 15:45 11/27/24 15:46 DC 11/27/24 16:30 Ondansetron HCl 4 mg ONCE ONCE PO 11/27/24 14:30 11/27/24 14:39 DC 11/27/24 15:11 Departure 1 Departure Time of Disposition: 16:41 Impression: Primary Impression: Obstructed, uropathy Additional Impressions: Nausea & vomiting Qualified Codes: R11.2 - Nausea with vomiting, unspecified Leukocytosis Qualified Codes: D72.829 - Elevated white blood cell count, unspecified Disposition: 09 ADMITTED INPATIENT Admit to: Med Surg Condition: Serious Discharged With: Self Critical Care Note Critical Care Time?: Yes (55 min-critical care time only) Critical care comment: Due to concerns for patients condition deteriorating, the care required my highest level of attention and readiness to intervene. I assessed the patient, reviewed the medical records, ordered the appropriate tests and treatments, then reassessed for results and responsiveness. I communicated with medical personnel and consultants and formulated a plan of care. Total critical care time excludes any procedures Stability Stability form required: No Heart Score Heart Score: Heart Score Response (Comments) Value History N/A 0 EKG N/A 0 Age N/A 0 Risk Factors N/A 0 Troponin N/A 0 Total 0 I personally scribed for MARIO LOVE MD ([email or web address]) on 11/27/24 at 12:27. Electronically submitted by Jun Moses ([email or web address]). MARIO LOVE MD Nov 27, 2024 12:27
[2024-11-27 14:55] LABS: Hematocrit 33.2 % (36.0-46.0); Hemoglobin 11.5 g/dL (12.2-16.2); Mean Corpuscular Hemoglobin 32.1 pg (28.0-32.0); Mean Corpuscular Volume 92.6 fL (80.0-100.0); Nucleated Red Blood Cells % 0.0 %
[2024-11-27] MEDS: ONDANSETRON ODT 4 MG TAB PO ONE (15:11)
[2024-11-27 15:15] LABS: Alanine Aminotransferase 16 U/L (7-40); Alkaline Phosphatase 101 U/L (46-116); Anion Gap 12 (5-15); BUN/Creatinine Ratio 7.4 (10.0-20.0); Carbon Dioxide 30 mmol/L (20-31); Potassium 3.7 mmol/L (3.5-5.1); Total Protein 7.9 g/dL (5.7-8.2)
[2024-11-27 15:16] LABS: Bilirubin, Total 0.7 mg/dL (0.2-1.0)
[2024-11-27 15:18] LABS: Albumin 4.8 g/dL (3.2-4.8); Blood Urea Nitrogen 41 mg/dL (9-23); Calcium 10.8 mg/dL (8.7-10.4); Chloride 93 mmol/L (98-107); Glucose 257 mg/dL (74-106); Sodium 135 mmol/L (136-145)
--- NOTE | 2024-11-27 15:46 | DVH ---
CLINICAL HISTORY: Rule out constipation. TECHNIQUE: 2 AP abdominal radiographs were obtained. COMPARISON: None FINDINGS: No dilated small bowel loops are seen. There is gas and a small to moderate amount of stoo l in the colon. No free air visualized under the diaphragm on the AP upright view. No significant claudia cifications are seen. Visualized portions of the lung bases demonstrate mild atelectasis. IMPRESSION: 1. Nonspecific nonobstructive bowel gas pattern. 2. Stool burden is within the range of normal.
--- NOTE | 2024-11-27 16:23 | DVH ---
Exam: CT CT AB PEL WO CON-NO ORAL OR IV History: nausea vomiting Comparison Study: None Technique: Multidetector spiral CT of the abdomen and pelvis was performed from lung bases to pubic symphysis. Imaging was performed without IV contrast. Axial, coronal and sagittal multiplanar reform ats were obtained from the axial data set by the technologist. Radiation dose : Abdomen/Pelvis: CTDIvol 26.28 mGy, DLP 1379.77 mGy*cm. Findings: Evaluation of solid organs is limited due to lack of intravenous contrast use. Lung Bases: No acute or significant lung base finding. Normal heart size. No pleural or pericardial effusion. Liver: The liver is normal in size. No focal lesions. Gallbladder and biliary Tree: Cholelithiasis noted without secondary findings of cholecystitis or lima iary obstruction. Spleen: Unremarkable Pancreas: The pancreas is grossly normal in appearance. Adrenal Glands: Unremarkable Kidneys: Moderate left hydronephrosis and hydroureter. Calculus in the left renal pelvis measuring up to 9 mm. Calculus in the mid left ureter measuring up to 4 mm. Associated perinephric and periurete ral stranding. Other left renal calculi are noted. Mild right hydronephrosis. Calculus in the right renal pelvis measuring up to 10 mm. Other right renal calculi noted. Mild right perinephric stranding . Bladder: Grossly unremarkable for degree of distention. Bowel: The stomach is grossly normal in appearance. Small bowel and colon are normal in caliber and d istribution. Normal appendix is visualized in the right lower quadrant without findings of appendicit is. Ascites: Absent Lymphadenopathy: Shotty retroperitoneal lymphadenopathy noted. Abdominal wall and Mesentery: Bilateral perinephric stranding greater on the left. Vasculature: Calcified atherosclerotic disease. Pelvic Organs: Unremarkable Musculoskeletal: No aggressive focal bony lesions, acute fractures or dislocation. IMPRESSION: 1. Bilateral obstructive ureteral calculi. Appears more acute on the left. Other nonobstructive bilat eral renal calculi noted. Urology evaluation is recommended. 2. Cholelithiasis. Shotty retroperitoneal lymphadenopathy. Radiation optimization: All CT scans at this facility use at least one of these dose optimization mike hniques: Automated exposure control mA and/or kV adjustment per patient size (includes targeted exams where dose is matched to clinical indication) or iterative reconstruction. HS:Y
[2024-11-27] MEDS: METOCLOPRAMIDE HCL 5MG/ml INJ 2ml VIAL IV ONE (16:30)
[2024-11-27] MEDS: SODIUM CHLORIDE 0.9% 1,000 ML IV ONE ×2 (16:44→17:16)
[2024-11-27] MEDS: cefTRIAXone 1GM/50ML D5W 50 ML IV ONE (16:50)
[2024-11-27] MEDS: SODIUM CHLORIDE 0.9% 250 ML IV ONE (17:26)
--- NOTE | 2024-11-27 18:59 | DVHHP2 ---
Admitting Diagnosis: Abdominal pain History of Present Illness This is a 59 year old female presenting to the ED with chief complaint of abdominal pain. Patient reports that she has been experiencing abdominal pain with associated nausea, vomiting, constipation, and inability to void since last night. Patient relays that she took some gas medication prior to arrival. Patient denies any diarrhea, fever, chills, chest pain, SOB, or dysuria. 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 Family History Family History: Reviewed,noncontributory to illness, Family hx of DM, Family hx of HTN Social History Smoker: Non-Smoker Alcohol: Occasionally Drugs: Denies Drug Use Lives In: Home Patient Family History: Cardiovascular disease G8 FATHER Cerebrovascular accident (CVA) GRANDMOM Diabetes mellitus G8 FATHER Hypertension G8 MOTHER Malignant neoplasm of breast G8 MOTHER AUNT Allergies: Coded Allergies: NO KNOWN ALLERGIES (Unverified , 09/19/17) Home Meds Active Scripts Pantoprazole Sodium Sesquihydr (Pantoprazole Sodium) 40 Mg Tab, 40 MG PO DAILY, #30 TAB Prov:LINDSAY WHITING MD 11/11/19 Sodium Bicarbonate (Sodium Bicarbonate) 650 Mg Tab, 650 MG PO BID, #60 TAB Prov:LINDSAY WHITING MD 11/11/19 Metoprolol Tartrate (Lopressor) 25 Mg Tb, 25 MG PO BID, #60 TAB Prov:LINDSAY WHITING MD 11/11/19 Atorvastatin Calcium (ATORVASTATIN CALCIUM) 20 Mg Tab, 20 MG PO HS, #30 TAB Prov:LINDSAY WHITING MD 11/11/19 Aspirin (Asa) 81 Mg Ch, 81 MG PO DAILY, #30 TAB.CHEW Prov:LINDSAY WHITING MD 11/11/19 Amlodipine Besylate (NORVASC TABLET) 5 Mg Tb, 10 MG PO DAILY, #30 TAB Prov:LINDSAY WHITING MD 11/11/19 Vital Signs Vital Signs Date Time Temp Pulse Resp B/P (MAP) Pulse Ox O2 Delivery O2 Flow Rate FiO2 11/27/24 18:00 94 18 151/63 (92) 94 11/27/24 17:15 Room Air* 0 21 11/27/24 12:15 98.7 98.7 Physical Exam General-59 years old, morbidly obese, lying in bed. Mild distress HEENT-atraumatic, normocephalic Heart-regular rate and rhythm Lungs clear to auscultate Abdomen soft nontender nondistended Musculoskeletal-pedal edema, no cyanosis Neuro-AO x3, no focal deficits Results Labs Test 11/27/24 17:07 11/27/24 15:45 11/27/24 14:53 Range/Units POC Glucose 300 H 70-106 mg/dl White Blood Count 21.5 H 4.4-10.8 10^3/uL Red Blood Count 3.58 L 4.0-5.20 10^6/uL Hemoglobin 11.5 L 12.2-16.2 g/dL Hematocrit 33.2 L 36.0-46.0 % Mean Corpuscular Volume 92.6 80.0-100.0 fL Mean Corpuscular Hemoglobin 32.1 H 28.0-32.0 pg Mean Corpuscular Hemoglobin Concent 34.7 32.0-36.0 g/dL Red Cell Distribution Width 14.0 11.8-14.3 % Platelet Count 222 140-450 10^3/uL Mean Platelet Volume 7.9 6.9-10.8 fL Neutrophils (%) (Auto) 91.7 H 37.0-80.0 % Lymphocytes (%) (Auto) 3.8 L 10.0-50.0 % Monocytes (%) (Auto) 4.1 0.0-12.0 % Eosinophils (%) (Auto) 0.0 0.0-7.0 % Basophils (%) (Auto) 0.4 0.0-2.0 % Neutrophils # (Auto) 19.7 H 1.6-8.6 10 ^3/uL Lymphocytes # (Auto) 0.8 0.4-5.4 10 ^3/uL Monocytes # (Auto) 0.9 0-1.3 10 ^3/uL Eosinophils # (Auto) 0 0-0.8 10 ^3/uL Basophils # (Auto) 0.1 0-0.2 10 ^3/uL Nucleated Red Blood Cells 0.0 % Sodium Level 135 L 136-145 mmol/L Potassium Level 3.7 3.5-5.1 mmol/L Chloride Level 93 L 98-107 mmol/L Carbon Dioxide Level 30 20-31 mmol/L Anion Gap 12 5-15 Blood Urea Nitrogen 41 H 9-23 mg/dL Creatinine 5.54 H 0.550-1.02 mg/dL Glomerular Filtration Rate Calc 8 >90 mL/min BUN/Creatinine Ratio 7.4 L 10.0-20.0 Serum Glucose 257 H 74-106 mg/dL Calcium Level 10.8 H 8.7-10.4 mg/dL Total Bilirubin 0.7 0.2-1.0 mg/dL Aspartate Amino Transferase (AST) 14 13-40 U/L Alanine Aminotransferase (ALT) 16 7-40 U/L Alkaline Phosphatase 101 46-116 U/L Total Protein 7.9 5.7-8.2 g/dL Albumin 4.8 3.2-4.8 g/dL Primary Diagnosis ENMA on CKD Bilateral renal calculus obstruction Plan Shows bilaterally renal obstruction Insert Garcia Nephrology and urology consulted Start tamsulosin NS at 250 cc an hour PPI for GI prophylaxis SCD for DVT prophylax Full code Resume home meds Plan discussed with: Patient Problems List: (1) Nausea & vomiting Status: Acute (2) Obstructed, uropathy Status: Acute Date of Service: Nov 27, 2024 Billing Provider: MICHELLE WOODS MD Common Visit Codes: [id number] INP/OBS CARE (HIGH) MICHELLE WOODS MD Nov 27, 2024 18:59
[2024-11-27] MEDS ORDERED: HYDROcodone-ACET 5/325MG TAB PO PRN (19:00)
[2024-11-27] MEDS ORDERED: MORPHINE SULFATE INJ 2 MG/ml SYRG IV PRN (19:00)
[2024-11-27] MEDS ORDERED: ONDANSETRON HCL 4 MG/2 ML VIAL IV PRN (19:00)
[2024-11-27] MEDS ORDERED: ACETAMINOPHEN 325 MG TAB PO PRN (19:00)
[2024-11-27] MEDS ORDERED: DEXTROSE (50%) 50ML SYRG IV PRN (19:00)
[2024-11-27] MEDS ORDERED: DOCUSATE SOD 100 MG CAP PO PRN (19:00)
[2024-11-27 21:55] VITALS: BP 139/72; PULSE 87; RESP 20; TEMP 98.7; O2SAT 94
[2024-11-27] MEDS: InsuLIN REG 1unit/0.01ml Soln (100units/ml) SC SCH (22:00)
[2024-11-27] MEDS: ACCU-CHEK COMFORT CURVE STRIP VI SCH (22:00)
[2024-11-27 22:07] VITALS: PULSE 87; RESP 17; O2SAT 97
[2024-11-27] MEDS: SODIUM CHLOR 0.9% PF (SALINE LOCK) 10ML VIAL/SYR IV SCH (22:22)
[2024-11-27] MEDS: ATORVASTATIN 20 MG TAB PO SCH (22:29)
[2024-11-27] MEDS: METOPROLOL TARTRATE 25 MG TAB PO SCH (22:29)
[2024-11-27] MEDS: TAMSULOSIN HYDROCHLORIDE 0.4 MG CAP PO SCH (22:35)
[2024-11-27 23:47] VITALS: BP 146/69; PULSE 87; RESP 17; TEMP 98.8; O2SAT 97
[2024-11-28] VITALS (8 sets, daily range): BP systolic 97–131; BP diastolic 50–69; PULSE 73–81; RESP 17–18; TEMP 97.9–98.6; O2SAT 90–94
[2024-11-28 00:29] LABS: Urine Protein, UAD 2+ (Negative); Urine WBC Clumps PRESENT /hpf (None Seen)
[2024-11-28 05:37] LABS: Hematocrit 29.6 % (36.0-46.0); Hemoglobin 10.3 g/dL (12.2-16.2); Mean Corpuscular Hemoglobin 32.4 pg (28.0-32.0); Mean Corpuscular Volume 93.4 fL (80.0-100.0); Nucleated Red Blood Cells % 0.0 %
[2024-11-28 05:55] LABS: Alanine Aminotransferase 10 U/L (7-40); Albumin 4.2 g/dL (3.2-4.8); Alkaline Phosphatase 85 U/L (46-116); Anion Gap 13 (5-15); BUN/Creatinine Ratio 7.9 (10.0-20.0); Calcium 10.3 mg/dL (8.7-10.4); Carbon Dioxide 29 mmol/L (20-31); Potassium 3.8 mmol/L (3.5-5.1); Sodium 137 mmol/L (136-145); Total Protein 7.0 g/dL (5.7-8.2)
[2024-11-28 05:56] LABS: Bilirubin, Total 0.5 mg/dL (0.2-1.0)
[2024-11-28 05:57] LABS: Blood Urea Nitrogen 50 mg/dL (9-23); Chloride 95 mmol/L (98-107); Glucose 192 mg/dL (74-106)
[2024-11-28] MEDS: cefTRIAXone 1GM/50ML D5W 50 ML IV SCH (10:15)
[2024-11-28] MEDS: PANTOPRAZOLE 40 MG TAB PO SCH (10:17)
--- NOTE | 2024-11-28 10:27 | DVHPN2 ---
Reviewed: Care Plan, H&P, Labs, Medications, Previous Orders, Radiology Changes from previous H/P or p: No Changes General: Per HPI Objective Vitals Vital Signs Date Time Temp Pulse Resp B/P (MAP) Pulse Ox O2 Delivery O2 Flow Rate FiO2 11/28/24 08:42 97.9 81 17 97/50 (66) 91 97.9 11/27/24 22:07 Room Air* 0 21 Intake/Output Intake and Output 11/28/24 07:00 Intake Total 450 ml Balance 450 ml Intake Oral 150 ml IV Total 300 ml # Voids 1 Medications Current Medications Medications Dose Ordered Sig/Rios Route Start Time Stop Time Status Last Admin Dose Admin Ceftriaxone Sodium 50 ml @ 100 mls/hr DAILY IV 11/28/24 10:00 11/28/24 10:15 100 MLS/HR Tamsulosin HCl 0.4 mg QPM PO 11/27/24 19:00 11/27/24 22:35 0.4 MG Sodium Chloride 10 ml Q8HR IV 11/27/24 22:00 11/28/24 06:00 10 ML Docusate Sodium 100 mg BIDPRN PRN PO 11/27/24 19:00 Acetaminophen 650 mg Q6HP PRN PO 11/27/24 19:00 Acetaminophen/ Hydrocodone Bitart 1 tab Q4HP PRN PO 11/27/24 19:00 Ondansetron HCl 4 mg Q4HP PRN IV 11/27/24 19:00 Morphine Sulfate 2 mg Q4HPRN PRN IV 11/27/24 19:00 Diagnostic Test (Pha) 1 strip ACHS 11/27/24 22:00 11/28/24 06:42 1 STRIP Insulin Human Regular ACHS SC 11/27/24 22:00 11/27/24 22:00 4 UNITS Dextrose 50 ml UD PRN IV 11/27/24 19:00 Amlodipine Besylate 10 mg DAILY PO 11/28/24 10:00 Aspirin 81 mg DAILY PO 11/28/24 10:00 Atorvastatin Calcium 20 mg HS PO 11/27/24 22:00 11/27/24 22:29 20 MG Metoprolol Tartrate 25 mg BID PO 11/27/24 22:00 11/27/24 22:29 25 MG Pantoprazole Sodium 40 mg DAILY PO 11/28/24 10:00 11/28/24 10:17 40 MG Laboratory Results Laboratory Tests 11/28/24 04:42 Chemistry Test 11/27/24 14:53 11/28/24 04:42 Albumin 4.8 g/dL (3.2-4.8) 4.2 g/dL (3.2-4.8) Calcium Level 10.8 mg/dL (8.7-10.4) H 10.3 mg/dL (8.7-10.4) Total Protein 7.9 g/dL (5.7-8.2) 7.0 g/dL (5.7-8.2) LFT Test 11/27/24 14:53 11/28/24 04:42 Alanine Aminotransferase (ALT) 16 U/L (7-40) 10 U/L (7-40) Alkaline Phosphatase 101 U/L (46-116) 85 U/L (46-116) Aspartate Amino Transferase (AST) 14 U/L (13-40) 11 U/L (13-40) L Total Bilirubin 0.7 mg/dL (0.2-1.0) 0.5 mg/dL (0.2-1.0) Urinalysis Test 11/28/24 00:10 Urine Color Light-brown (Yellow) Urine Clarity Ex.turbid (Clear) Urine pH 6.5 (5.0-9.0) Urine Specific [place] 1.013 (1.001-1.035) Urine Protein 2+ (Negative) H Urine Ketones Negative (Negative) Urine Blood 3+ /uL (Negative) H Urine Nitrite Negative (Negative) Urine Bilirubin Negative (Negative) Urine Urobilinogen Normal mg/dL (Negative) Urine Leukocyte Esterase 3+ /uL (Negative) Urine RBC 950 /hpf (0 - 4) Urine WBC Clumps Present /hpf (None Seen) Urine Microscopic WBC 1137 /HPF (0-5) H Urine Squamous Epithelial Cells Few /hpf (<5) Urine Bacteria None seen /hpf (None Seen) Urine Glucose 3+ mg/dL (Normal) H Assessment/Plan Assessment/Plan This is a 59 year old female presenting to the ED with chief complaint of abdominal pain. Patient reports that she has been experiencing abdominal pain with associated nausea, vomiting, constipation, and inability to void since last night. Patient relays that she took some gas medication prior to arrival. Patient denies any diarrhea, fever, chills, chest pain, SOB, or dysuria. 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 Urology is on the case, Awaiting for full evaluation by Urology Patient has requested renal diet. Patient is ESRD and on HD with [facility]. Nephrology consulted Plan discussed with: Patient Date of Service: Nov 28, 2024 Billing Provider: TERRY MCNAIR DO Common Visit Codes: [id number] INP/OBS CARE(HIGH) TERRY MCNAIR DO Nov 28, 2024 10:27
--- NOTE | 2024-11-28 19:49 | DVHINCON2 ---
Date of service: Nov 28, [address] Alfredo Kim Reason for Consultation End-stage kidney disease History of Present Illness This is a 59-year-old female with a history of end-stage kidney disease on hemodialysis presenting to the emergency room because of abdominal pain more so in the left flank area associated with a difficulty voiding and defecating. CT of the abdomen and pelvis was done which showed evidence of bilateral obstructing calculi more so on the left side. Patient admitted for evaluation by Urology. Nephrology consulted for dialysis. Her last dialysis was on Friday. Patient is seen and examined at bedside. Denies any shortness of breaths. Pain has subsided. Past Medical History End-stage kidney disease on dialysis Type 2 diabetes Hypertension Hyperlipidemia Peripheral vascular disease Past Surgical History Dialysis access Family History: Cardiovascular disease G8 FATHER Cerebrovascular accident (CVA) GRANDMOM Diabetes mellitus G8 FATHER Hypertension G8 MOTHER Malignant neoplasm of breast G8 MOTHER AUNT Social History No active history of smoking alcohol or drug abuse Allergies: Coded Allergies: NO KNOWN ALLERGIES (Unverified , 09/19/17) Home Meds Active Scripts Pantoprazole Sodium Sesquihydr (Pantoprazole Sodium) 40 Mg Tab, 40 MG PO DAILY, #30 TAB Prov:LINDSAY WHITING MD 11/11/19 Sodium Bicarbonate (Sodium Bicarbonate) 650 Mg Tab, 650 MG PO BID, #60 TAB Prov:LINDSAY WHITING MD 11/11/19 Metoprolol Tartrate (Lopressor) 25 Mg Tb, 25 MG PO BID, #60 TAB Prov:LINDSAY WHITING MD 11/11/19 Atorvastatin Calcium (ATORVASTATIN CALCIUM) 20 Mg Tab, 20 MG PO HS, #30 TAB Prov:LINDSAY WHITING MD 11/11/19 Aspirin (Asa) 81 Mg Ch, 81 MG PO DAILY, #30 TAB.CHEW Prov:LINDSAY WHITING MD 11/11/19 Amlodipine Besylate (NORVASC TABLET) 5 Mg Tb, 10 MG PO DAILY, #30 TAB Prov:LINDSAY WHITING MD 11/11/19 Current Medications Current Medications Medications (Trade) Dose Ordered Sig/Rios Route PRN Reason Start Time Stop Time Status Last Admin Ceftriaxone Sodium 50 ml @ 100 mls/hr DAILY IV 11/28/24 10:00 11/28/24 10:15 Sodium Chloride (Saline Lock Ns) 10 ml Q8HR IV 11/27/24 22:00 11/28/24 14:00 Diagnostic Test (Pha) (Accu-Chek Comfort Curve T) 1 strip ACHS 11/27/24 22:00 11/28/24 17:25 Insulin Human Regular (InsuLIN R) ACHS SC 11/27/24 22:00 11/28/24 17:28 Amlodipine Besylate (Norvasc Tablet) 10 mg DAILY PO 11/28/24 10:00 11/28/24 18:02 Aspirin 81 mg DAILY PO 11/28/24 10:00 11/28/24 13:53 Atorvastatin Calcium (Lipitor) 20 mg HS PO 11/27/24 22:00 11/27/24 22:29 Metoprolol Tartrate (Lopressor Tablet) 25 mg BID PO 11/27/24 22:00 11/28/24 13:53 Pantoprazole Sodium (Protonix Tablet) 40 mg DAILY PO 11/28/24 10:00 11/28/24 10:17 Review of Systems 12 point review of system negative except as stated in the HPI Vital Signs Vital Signs Date Time Temp Pulse Resp B/P (MAP) Pulse Ox O2 Delivery O2 Flow Rate FiO2 11/28/24 18:02 117/54 11/28/24 16:33 98.0 79 17 94 98.0 11/28/24 08:00 Room Air* 0 21 Physical Exam General-59 years old, morbidly obese, lying in bed. HEENT-atraumatic, normocephalic Heart-regular rate and rhythm Lungs clear to auscultate Abdomen soft nontender nondistended Musculoskeletal-pedal edema, no cyanosis Neuro-AO x3, no focal deficits Labs/Diagnostic Data Labs Test 11/28/24 17:22 11/28/24 04:42 11/28/24 00:10 Range/Units POC Glucose 265 H 70-106 mg/dl White Blood Count 18.1 H 4.4-10.8 10^3/uL Red Blood Count 3.18 L 4.0-5.20 10^6/uL Hemoglobin 10.3 L 12.2-16.2 g/dL Hematocrit 29.6 #L 36.0-46.0 % Mean Corpuscular Volume 93.4 80.0-100.0 fL Mean Corpuscular Hemoglobin 32.4 H 28.0-32.0 pg Mean Corpuscular Hemoglobin Concent 34.7 32.0-36.0 g/dL Red Cell Distribution Width 14.4 H 11.8-14.3 % Platelet Count 197 140-450 10^3/uL Mean Platelet Volume 8.2 6.9-10.8 fL Neutrophils (%) (Auto) 87.9 H 37.0-80.0 % Lymphocytes (%) (Auto) 7.6 L 10.0-50.0 % Monocytes (%) (Auto) 4.4 0.0-12.0 % Eosinophils (%) (Auto) 0.0 0.0-7.0 % Basophils (%) (Auto) 0.1 0.0-2.0 % Neutrophils # (Auto) 15.9 H 1.6-8.6 10 ^3/uL Lymphocytes # (Auto) 1.4 0.4-5.4 10 ^3/uL Monocytes # (Auto) 0.8 0-1.3 10 ^3/uL Eosinophils # (Auto) 0 0-0.8 10 ^3/uL Basophils # (Auto) 0 0-0.2 10 ^3/uL Nucleated Red Blood Cells 0.0 % Sodium Level 137 136-145 mmol/L Potassium Level 3.8 3.5-5.1 mmol/L Chloride Level 95 L 98-107 mmol/L Carbon Dioxide Level 29 20-31 mmol/L Anion Gap 13 5-15 Blood Urea Nitrogen 50 H 9-23 mg/dL Creatinine 6.34 H 0.550-1.02 mg/dL Glomerular Filtration Rate Calc 7 >90 mL/min BUN/Creatinine Ratio 7.9 L 10.0-20.0 Serum Glucose 192 H 74-106 mg/dL Calcium Level 10.3 8.7-10.4 mg/dL Total Bilirubin 0.5 0.2-1.0 mg/dL Aspartate Amino Transferase (AST) 11 L 13-40 U/L Alanine Aminotransferase (ALT) 10 7-40 U/L Alkaline Phosphatase 85 46-116 U/L Total Protein 7.0 5.7-8.2 g/dL Albumin 4.2 3.2-4.8 g/dL Urine Color Light-brown Yellow Urine Clarity Ex.turbid Clear Urine pH 6.5 5.0-9.0 Urine Specific [place] 1.013 1.001-1.035 Urine Protein 2+ H Negative Urine Ketones Negative Negative Urine Blood 3+ H Negative /uL Urine Nitrite Negative Negative Urine Bilirubin Negative Negative Urine Urobilinogen Normal Negative mg/dL Urine Leukocyte Esterase 3+ Negative /uL Urine RBC 950 0 - 4 /hpf Urine WBC Clumps Present None Seen /hpf Urine Microscopic WBC 1137 H 0-5 /HPF Urine Squamous Epithelial Cells Few <5 /hpf Urine Bacteria None seen None Seen /hpf Urine Glucose 3+ H Normal mg/dL Microbiology Date/Time Source Procedure Growth Status 11/28/24 00:00 Nose MRSA Screen - Final Complete Assessment End-stage kidney disease on hemodialysis Bilateral ureteral calculi more on the left side Type 2 diabetes Hypertension Hyperlipidemia Anemia in CKD Plan/Recommendation Urology evaluation Hemodialysis tomorrow Pain control Continue with the Flomax Plan discussed with: Patient BJ ESPINOSA MD Nov 28, 2024 19:49
--- NOTE | 2024-11-28 21:48 | DVHINCON2 ---
Date of service: Nov 28, 2024 Referring Physician Hospitalist Reason for Consultation Abdominal pain Bilateral hydronephrosis History of Present Illness 59-year-old female with a history of end-stage kidney disease on hemodialysis since 2020 due to diabetes admitted to [facility] yesterday because of abdominal pain more so in the left flank area associated with a difficulty voiding and defecating. CT of the abdomen and pelvis was done which showed evidence of bilateral obstructing calculi more so on the left side. Patient admitted for evaluation by Urology, but the aeronautical drafter urologist was not notified. Currently, patient is painfree and urinating well. Will obtain Renal US to look for ureteral jetting. Past Medical History End-stage kidney disease on dialysis Type 2 diabetes Hypertension Hyperlipidemia Peripheral vascular disease Past Surgical History Dialysis access Family History: Cardiovascular disease G8 FATHER Cerebrovascular accident (CVA) GRANDMOM Diabetes mellitus G8 FATHER Hypertension G8 MOTHER Malignant neoplasm of breast G8 MOTHER AUNT Allergies: Coded Allergies: NO KNOWN ALLERGIES (Unverified , 09/19/17) Home Meds Active Scripts Pantoprazole Sodium Sesquihydr (Pantoprazole Sodium) 40 Mg Tab, 40 MG PO DAILY, #30 TAB Prov:LINDSAY WHITING MD 11/11/19 Sodium Bicarbonate (Sodium Bicarbonate) 650 Mg Tab, 650 MG PO BID, #60 TAB Prov:LINDSAY WHITING MD 11/11/19 Metoprolol Tartrate (Lopressor) 25 Mg Tb, 25 MG PO BID, #60 TAB Prov:LINDSAY WHITING MD 11/11/19 Atorvastatin Calcium (ATORVASTATIN CALCIUM) 20 Mg Tab, 20 MG PO HS, #30 TAB Prov:LINDSAY WHITING MD 11/11/19 Aspirin (Asa) 81 Mg Ch, 81 MG PO DAILY, #30 TAB.CHEW Prov:LINDSAY WHITING MD 11/11/19 Amlodipine Besylate (NORVASC TABLET) 5 Mg Tb, 10 MG PO DAILY, #30 TAB Prov:LINDSAY WHITING MD 11/11/19 Current Medications Current Medications Medications (Trade) Dose Ordered Sig/Rios Route PRN Reason Start Time Stop Time Status Last Admin Ceftriaxone Sodium 50 ml @ 100 mls/hr DAILY IV 11/28/24 10:00 11/28/24 10:15 Sodium Chloride (Saline Lock Ns) 10 ml Q8HR IV 11/27/24 22:00 11/28/24 14:00 Diagnostic Test (Pha) (Accu-Chek Comfort Curve T) 1 strip ACHS 11/27/24 22:00 11/28/24 17:25 Insulin Human Regular (InsuLIN R) ACHS SC 11/27/24 22:00 11/28/24 17:28 Amlodipine Besylate (Norvasc Tablet) 10 mg DAILY PO 11/28/24 10:00 11/28/24 18:02 Aspirin 81 mg DAILY PO 11/28/24 10:00 11/28/24 13:53 Atorvastatin Calcium (Lipitor) 20 mg HS PO 11/27/24 22:00 11/27/24 22:29 Metoprolol Tartrate (Lopressor Tablet) 25 mg BID PO 11/27/24 22:00 11/28/24 13:53 Pantoprazole Sodium (Protonix Tablet) 40 mg DAILY PO 11/28/24 10:00 11/28/24 10:17 Review of Systems As per HPI Vital Signs Vital Signs Date Time Temp Pulse Resp B/P (MAP) Pulse Ox O2 Delivery O2 Flow Rate FiO2 11/28/24 18:02 117/54 11/28/24 16:33 98.0 79 17 94 98.0 11/28/24 08:00 Room Air* 0 21 Physical Exam General-59 years old, morbidly obese, lying in bed. NAD HEENT-atraumatic, normocephalic Heart-regular rate and rhythm Lungs clear to auscultate Abdomen soft nontender nondistended Musculoskeletal-pedal edema, no cyanosis Neuro-AO x3, no focal deficits Labs/Diagnostic Data Labs Test 11/28/24 17:22 11/28/24 04:42 11/28/24 00:10 Range/Units POC Glucose 265 H 70-106 mg/dl White Blood Count 18.1 H 4.4-10.8 10^3/uL Red Blood Count 3.18 L 4.0-5.20 10^6/uL Hemoglobin 10.3 L 12.2-16.2 g/dL Hematocrit 29.6 #L 36.0-46.0 % Mean Corpuscular Volume 93.4 80.0-100.0 fL Mean Corpuscular Hemoglobin 32.4 H 28.0-32.0 pg Mean Corpuscular Hemoglobin Concent 34.7 32.0-36.0 g/dL Red Cell Distribution Width 14.4 H 11.8-14.3 % Platelet Count 197 140-450 10^3/uL Mean Platelet Volume 8.2 6.9-10.8 fL Neutrophils (%) (Auto) 87.9 H 37.0-80.0 % Lymphocytes (%) (Auto) 7.6 L 10.0-50.0 % Monocytes (%) (Auto) 4.4 0.0-12.0 % Eosinophils (%) (Auto) 0.0 0.0-7.0 % Basophils (%) (Auto) 0.1 0.0-2.0 % Neutrophils # (Auto) 15.9 H 1.6-8.6 10 ^3/uL Lymphocytes # (Auto) 1.4 0.4-5.4 10 ^3/uL Monocytes # (Auto) 0.8 0-1.3 10 ^3/uL Eosinophils # (Auto) 0 0-0.8 10 ^3/uL Basophils # (Auto) 0 0-0.2 10 ^3/uL Nucleated Red Blood Cells 0.0 % Sodium Level 137 136-145 mmol/L Potassium Level 3.8 3.5-5.1 mmol/L Chloride Level 95 L 98-107 mmol/L Carbon Dioxide Level 29 20-31 mmol/L Anion Gap 13 5-15 Blood Urea Nitrogen 50 H 9-23 mg/dL Creatinine 6.34 H 0.550-1.02 mg/dL Glomerular Filtration Rate Calc 7 >90 mL/min BUN/Creatinine Ratio 7.9 L 10.0-20.0 Serum Glucose 192 H 74-106 mg/dL Calcium Level 10.3 8.7-10.4 mg/dL Total Bilirubin 0.5 0.2-1.0 mg/dL Aspartate Amino Transferase (AST) 11 L 13-40 U/L Alanine Aminotransferase (ALT) 10 7-40 U/L Alkaline Phosphatase 85 46-116 U/L Total Protein 7.0 5.7-8.2 g/dL Albumin 4.2 3.2-4.8 g/dL Urine Color Light-brown Yellow Urine Clarity Ex.turbid Clear Urine pH 6.5 5.0-9.0 Urine Specific [place] 1.013 1.001-1.035 Urine Protein 2+ H Negative Urine Ketones Negative Negative Urine Blood 3+ H Negative /uL Urine Nitrite Negative Negative Urine Bilirubin Negative Negative Urine Urobilinogen Normal Negative mg/dL Urine Leukocyte Esterase 3+ Negative /uL Urine RBC 950 0 - 4 /hpf Urine WBC Clumps Present None Seen /hpf Urine Microscopic WBC 1137 H 0-5 /HPF Urine Squamous Epithelial Cells Few <5 /hpf Urine Bacteria None seen None Seen /hpf Urine Glucose 3+ H Normal mg/dL Microbiology Date/Time Source Procedure Growth Status 11/28/24 00:00 Nose MRSA Screen - Final Complete PATIENT: JOHN BAUTISTA ACCT: [id number] UNIT: [id number] : 1965 LOC: ER ROOM / BED: / AGE / SEX: 59 / F ADM STATUS: REG ER SERVICE [id number] ORDERING PHYSICIAN: MARIO LOVE MD PROCEDURE(s): ABPL - CT AB PEL WO CON-NO ORAL OR IV REASON: nausea vomiting ORDER NUMBER(s): [id number], ACCESSION NUMBER(s): [id number] Exam: CT CT AB PEL WO CON-NO ORAL OR IV History: nausea vomiting Comparison Study: None Technique: Multidetector spiral CT of the abdomen and pelvis was performed from lung bases to pubic symphysis. Imaging was performed without IV contrast. Axial, coronal and sagittal multiplanar reformats were obtained from the axial data set by the technologist. Radiation dose : Abdomen/Pelvis: CTDIvol 26.28 mGy, DLP 1379.77 mGy*cm. Findings: Evaluation of solid organs is limited due to lack of intravenous contrast use. Lung Bases: No acute or significant lung base finding. Normal heart size. No pleural or pericardial effusion. Liver: The liver is normal in size. No focal lesions. Gallbladder and biliary Tree: Cholelithiasis noted without secondary findings of cholecystitis or biliary obstruction. Spleen: Unremarkable Pancreas: The pancreas is grossly normal in appearance. Adrenal Glands: Unremarkable Kidneys: Moderate left hydronephrosis and hydroureter. Calculus in the left renal pelvis measuring up to 9 mm. Calculus in the mid left ureter measuring up to 4 mm. Associated perinephric and periureteral stranding. Other left renal calculi are noted. Mild right hydronephrosis. Calculus in the right renal pel vis measuring up to 10 mm. Other right renal calculi noted. Mild right perinephric stranding. Bladder: Grossly unremarkable for degree of distention. Bowel: The stomach is grossly normal in appearance. Small bowel and colon are normal in caliber and distribution. Normal appendix is visualized in the right lower quadrant without findings of appendicitis. Ascites: Absent Lymphadenopathy: Shotty retroperitoneal lymphadenopathy noted. Abdominal wall and Mesentery: Bilateral perinephric stranding greater on the left. Vasculature: Calcified atherosclerotic disease. Pelvic Organs: Unremarkable Musculoskeletal: No aggressive focal bony lesions, acute fractures or dislocation. IMPRESSION: 1. Bilateral obstructive ureteral calculi. Appears more acute on the left. Other nonobstructive bilateral renal calculi noted. Urology evaluation is recommended. 2. Cholelithiasis. Shotty retroperitoneal lymphadenopathy. Radiation optimization: All CT scans at this facility use at least one of these dose optimization techniques: Automated exposure control mA and/or kV adjustment per patient size (includes targeted exams where dose is matched to clinical indication) or iterative reconstruction. HS:Y ATED BY: TIAGO CHOUDHARY MD DICTATED DATE/TIME: 11/27/24 1621 SIGNED BY: TIAGO CHOUDHARY MD SIGNED DATE/TIME: 11/27/24 1621 CC: Assessment ESRD on Hemodialysis Bilateral ureteral stones Plan/Recommendation Repeat labs Renal US to evaluate for ureteral jet Garcia catheter refused by patient. Bilateral ESWL with possible left ureteral stent placement TBA Plan discussed with: Patient, Other JUMANA WOODS MD Nov 28, 2024 21:48
[2024-11-29 01:00] VITALS: BP 119/66; PULSE 70; RESP 18; TEMP 98.4; O2SAT 91
--- NOTE | 2024-11-29 01:20 | DVH ---
INDICATION: Hydronephrosis TECHNIQUE: Multiple real-time sonographic images of the kidneys and bladder were obtained. COMPARISON: None FINDINGS: The right kidney measures approximately 8.7 cm in length and the left kidney measures approximately 8 .9 cm in length. Both kidneys demonstrate mild cortical thinning. No significant hydronephrosis noted . Urinary bladder is only partially distended with a prevoid volume of 53 mL. IMPRESSION: Mild bilateral renal atrophy. No significant hydronephrosis noted.
[2024-11-29 05:00] VITALS: BP 120/70; PULSE 72; RESP 18; TEMP 98.4; O2SAT 90
[2024-11-29] MEDS ORDERED: SODIUM CHL 0.9% 1000 ML BAG XX ONE (07:00)
[2024-11-29 07:30] VITALS: PULSE 71; RESP 18
[2024-11-29 09:00] VITALS: BP 117/66; PULSE 71; RESP 15; TEMP 98.9; O2SAT 92
[2024-11-29 10:22] LABS: Hematocrit 28.8 % (36.0-46.0); Hemoglobin 9.8 g/dL (12.2-16.2); Mean Corpuscular Hemoglobin 33.0 pg (28.0-32.0); Mean Corpuscular Volume 97.1 fL (80.0-100.0); Nucleated Red Blood Cells % 0.0 %
--- NOTE | 2024-11-29 10:30 | DVHPN2 ---
Progress Note - Dictate Date Seen: Nov 29, 2024 Medical Necessity Reason Pt with a Central, PICC or Fol: No Subjective feeling well vital signs Vital Sign Date Time Temp Pulse Resp B/P (MAP) Pulse Ox O2 Delivery O2 Flow Rate FiO2 11/29/24 09:09 71 117/66 11/29/24 09:00 98.9 15 92 98.9 11/29/24 07:30 Room Air* 0 21 Total Intake and Output 11/28/24 11/28/24 11/29/24 14:59 22:59 06:59 Intake Total 480 ml 240 ml Balance 480 ml 240 ml medications Current Medications Medications Dose Ordered Sig/Rios Route Start Time Stop Time Status Last Admin Dose Admin Ceftriaxone Sodium 50 ml @ 100 mls/hr DAILY IV 11/28/24 10:00 11/29/24 09:07 100 MLS/HR Tamsulosin HCl 0.4 mg QPM PO 11/27/24 19:00 11/28/24 17:28 0.4 MG Sodium Chloride 10 ml Q8HR IV 11/27/24 22:00 11/29/24 06:28 10 ML Docusate Sodium 100 mg BIDPRN PRN PO 11/27/24 19:00 Acetaminophen 650 mg Q6HP PRN PO 11/27/24 19:00 Acetaminophen/ Hydrocodone Bitart 1 tab Q4HP PRN PO 11/27/24 19:00 Ondansetron HCl 4 mg Q4HP PRN IV 11/27/24 19:00 Morphine Sulfate 2 mg Q4HPRN PRN IV 11/27/24 19:00 Diagnostic Test (Pha) 1 strip ACHS 11/27/24 22:00 11/29/24 06:33 1 STRIP Insulin Human Regular ACHS SC 11/27/24 22:00 11/29/24 06:33 4 UNITS Dextrose 50 ml UD PRN IV 11/27/24 19:00 Amlodipine Besylate 10 mg DAILY PO 11/28/24 10:00 11/29/24 09:09 10 MG Aspirin 81 mg DAILY PO 11/28/24 10:00 11/29/24 09:08 81 MG Atorvastatin Calcium 20 mg HS PO 11/27/24 22:00 11/28/24 21:55 20 MG Metoprolol Tartrate 25 mg BID PO 11/27/24 22:00 11/29/24 09:09 25 MG Pantoprazole Sodium 40 mg DAILY PO 11/28/24 10:00 11/29/24 09:08 40 MG objective Renal US no significant hydro laboratory and microbiology Test 11/29/24 09:45 Range/Units Serum Glucose Pending Assessment/Plan dialysis per nephrology empiric abx monitor urine output consider left PCN if pain uncontrolled or not improving clinically Problems(with codes): (1) Leukocytosis (2) Obstructed, uropathy (3) Nausea & vomiting Plan discussed with: Patient, Other CARL MERIDA DADO OPERATOR Nov 29, 2024 10:30
[2024-11-29 10:39] LABS: Alanine Aminotransferase 12 U/L (7-40); Alkaline Phosphatase 71 U/L (46-116); Anion Gap 12 (5-15); Calcium 9.3 mg/dL (8.7-10.4); Carbon Dioxide 27 mmol/L (20-31); Potassium 3.9 mmol/L (3.5-5.1); Sodium 137 mmol/L (136-145)
[2024-11-29 10:40] LABS: BUN/Creatinine Ratio 8.5 (10.0-20.0); Blood Urea Nitrogen 69 mg/dL (9-23); Chloride 98 mmol/L (98-107); Glucose 169 mg/dL (74-106); Total Protein 5.9 g/dL (5.7-8.2)
[2024-11-29 10:41] LABS: Albumin 3.6 g/dL (3.2-4.8)
[2024-11-29 10:42] LABS: Bilirubin, Total 0.3 mg/dL (0.2-1.0)
[2024-11-29 12:55] VITALS: BP 121/72; PULSE 68; RESP 15; TEMP 97.6; O2SAT 92
[2024-11-29] MEDS ORDERED: NALO4SPR2 (14:07)
[2024-11-29] MEDS ORDERED: CEPH500T PO (14:07)
[2024-11-29] MEDS ORDERED: HYDR-4902 PO ×2 (14:07→14:11)
--- NOTE | 2024-11-29 14:54 | DVHPN2 ---
Progress Note - Dictate Date Seen: Nov 29, 2024 Medical Necessity Reason Pt with a Central, PICC or Fol: No Subjective Patient denies any pain, feels stable at this time, her urine is more clear vital signs Vital Sign Date Time Temp Pulse Resp B/P (MAP) Pulse Ox O2 Delivery O2 Flow Rate FiO2 11/29/24 12:55 97.6 68 15 121/72 (88) 92 97.6 11/29/24 07:30 Room Air* 0 21 Total Intake and Output 11/28/24 11/28/24 11/29/24 15:00 23:00 07:00 Intake Total 480 ml 240 ml Balance 480 ml 240 ml medications Current Medications Medications Dose Ordered Sig/Rios Route Start Time Stop Time Status Last Admin Dose Admin Ceftriaxone Sodium 50 ml @ 100 mls/hr DAILY IV 11/28/24 10:00 11/29/24 09:07 100 MLS/HR Tamsulosin HCl 0.4 mg QPM PO 11/27/24 19:00 11/28/24 17:28 0.4 MG Sodium Chloride 10 ml Q8HR IV 11/27/24 22:00 11/29/24 06:28 10 ML Docusate Sodium 100 mg BIDPRN PRN PO 11/27/24 19:00 Acetaminophen 650 mg Q6HP PRN PO 11/27/24 19:00 Acetaminophen/ Hydrocodone Bitart 1 tab Q4HP PRN PO 11/27/24 19:00 Ondansetron HCl 4 mg Q4HP PRN IV 11/27/24 19:00 Morphine Sulfate 2 mg Q4HPRN PRN IV 11/27/24 19:00 Diagnostic Test (Pha) 1 strip ACHS 11/27/24 22:00 11/29/24 11:46 1 STRIP Insulin Human Regular ACHS SC 11/27/24 22:00 11/29/24 11:43 3 UNITS Dextrose 50 ml UD PRN IV 11/27/24 19:00 Amlodipine Besylate 10 mg DAILY PO 11/28/24 10:00 11/29/24 09:09 10 MG Aspirin 81 mg DAILY PO 11/28/24 10:00 11/29/24 09:08 81 MG Atorvastatin Calcium 20 mg HS PO 11/27/24 22:00 11/28/24 21:55 20 MG Metoprolol Tartrate 25 mg BID PO 11/27/24 22:00 11/29/24 09:09 25 MG Pantoprazole Sodium 40 mg DAILY PO 11/28/24 10:00 11/29/24 09:08 40 MG objective HEENT: No evidence of JVD, no oral ulcers. Pulmonary: Lungs are clear on auscultation bilaterally Cardiovascular S1-S2, no S3 or S4 Abdomen: Bowel sounds positive, soft no rebound tenderness Skin: No rash Neurological: Alert, oriented, no focal weakness Av fistula positive bruit and thrill laboratory and microbiology Laboratory Tests 11/29/24 09:45 Test 11/29/24 09:45 Range/Units Serum Glucose 169 H 74-106 mg/dL Assessment/Plan Assessment: End-stage kidney disease on hemodialysis Bilateral ureteral calculi more on the left side Type 2 diabetes Hypertension Hyperlipidemia Anemia in CKD Plan/Recommendation Urology evaluation appreciated Hemodialysis Friday Analgesia as per primary team Continue with the Flomax Thank you very much Plan discussed with: Patient KARISSA HENDERSON MD Nov 29, 2024 14:54
--- NOTE | 2024-11-29 16:47 | DVHDS2 ---
Discharge Summary Date of Admission Nov 27, 2024 at 18:54 Date of Discharge: Nov 29, 2024 Labs/Diagnostic Data: Laboratory Results Test 11/29/24 10:30 11/29/24 09:45 11/28/24 00:10 POC Glucose 176 mg/dl (70-106) White Blood Count 9.2 10^3/uL (4.4-10.8) Red Blood Count 2.97 10^6/uL (4.0-5.20) Hemoglobin 9.8 g/dL (12.2-16.2) Hematocrit 28.8 % (36.0-46.0) Mean Corpuscular Volume 97.1 fL (80.0-100.0) Mean Corpuscular Hemoglobin 33.0 pg (28.0-32.0) Mean Corpuscular Hemoglobin Concent 34.0 g/dL (32.0-36.0) Red Cell Distribution Width 14.6 % (11.8-14.3) Platelet Count 168 10^3/uL (140-450) Mean Platelet Volume 8.2 fL (6.9-10.8) Neutrophils (%) (Auto) 76.8 % (37.0-80.0) Lymphocytes (%) (Auto) 14.6 % (10.0-50.0) Monocytes (%) (Auto) 6.4 % (0.0-12.0) Eosinophils (%) (Auto) 1.9 % (0.0-7.0) Basophils (%) (Auto) 0.3 % (0.0-2.0) Neutrophils # (Auto) 7.1 10 ^3/uL (1.6-8.6) Lymphocytes # (Auto) 1.3 10 ^3/uL (0.4-5.4) Monocytes # (Auto) 0.6 10 ^3/uL (0-1.3) Eosinophils # (Auto) 0.2 10 ^3/uL (0-0.8) Basophils # (Auto) 0 10 ^3/uL (0-0.2) Nucleated Red Blood Cells 0.0 % Sodium Level 137 mmol/L (136-145) Potassium Level 3.9 mmol/L (3.5-5.1) Chloride Level 98 mmol/L (98-107) Carbon Dioxide Level 27 mmol/L (20-31) Anion Gap 12 (5-15) Blood Urea Nitrogen 69 mg/dL (9-23) Creatinine 8.08 mg/dL (0.550-1.02) Glomerular Filtration Rate Calc 5 mL/min (>90) BUN/Creatinine Ratio 8.5 (10.0-20.0) Serum Glucose 169 mg/dL (74-106) Calcium Level 9.3 mg/dL (8.7-10.4) Total Bilirubin 0.3 mg/dL (0.2-1.0) Aspartate Amino Transferase (AST) 10 U/L (13-40) Alanine Aminotransferase (ALT) 12 U/L (7-40) Alkaline Phosphatase 71 U/L (46-116) Total Protein 5.9 g/dL (5.7-8.2) Albumin 3.6 g/dL (3.2-4.8) Urine Color Light-brown (Yellow) Urine Clarity Ex.turbid (Clear) Urine pH 6.5 (5.0-9.0) Urine Specific [place] 1.013 (1.001-1.035) Urine Protein 2+ (Negative) Urine Ketones Negative (Negative) Urine Blood 3+ /uL (Negative) Urine Nitrite Negative (Negative) Urine Bilirubin Negative (Negative) Urine Urobilinogen Normal mg/dL (Negative) Urine Leukocyte Esterase 3+ /uL (Negative) Urine RBC 950 /hpf (0 - 4) Urine WBC Clumps Present /hpf (None Seen) Urine Microscopic WBC 1137 /HPF (0-5) Urine Squamous Epithelial Cells Few /hpf (<5) Urine Bacteria None seen /hpf (None Seen) Urine Glucose 3+ mg/dL (Normal) Other Laboratory Tests 11/29/24 09:45 Final Diagnosis/Problems List 1. Bilateral hydronephrosis mid obstructive uropathy, resolved 2. Bilateral geriatric stone left more than right, probably passed 3. End-stage renal disease on hemodialysis next 4. Hypertension next 5. Dyslipidemia 6. Leukocytosis 7. UTI Discharge Disposition: Home Discharge Instruct/Medications Diet: Cardiac 2g Na,low cholest Diet comment: Renal diet Activity: See Comment Activity comment: No driving, no bleeding on heavy machinery, no finding of legal documents while on narcotics. Follow Up/Referral: Follow up with the PCP in one week Follow up with the Urology for outpatient ESWL Medications: Keflex [place] Narcan as prescribed Scheduled Amlodipine Besylate (Norvasc Tablet), 10 MG PO DAILY Aspirin (Asa), 81 MG PO DAILY Atorvastatin Calcium (Atorvastatin Calcium), 20 MG PO HS Cephalexin Monohydrate (Cephalexin), 500 MG PO DAILY Metoprolol Tartrate (Lopressor), 25 MG PO BID Naloxone HCl (Narcan), 4 MG NA ANALYSIS TESTER Pantoprazole Sodium Sesquihydr (Pantoprazole Sodium), 40 MG PO DAILY Sodium Bicarbonate (Sodium Bicarbonate), 650 MG PO BID Scheduled PRN Hydrocodone-Acetaminophen (Hydrocodone Bitartrate/AC 5-325 mg), 1 TAB PO Q8HP PRN Discharge Statement: "Patient was advised to return to the ER or call 911 if any headaches, dizziness, shortness of breath, chest pain, abdominal pain, bleeding, fevers, or worsening of medical condition. Patient was counseled about treatment plan, medications, possible side effects, patientverbalized understanding. All questions were answered to the best of my ability. This discharge took greater then 30 minutes in planning, reviewing documentation, counseling the patient, and discussing with other team members." ASSESSMENT ASSESSMENT Assessment 1. Bilateral hydronephrosis mid obstructive uropathy, resolved 2. Bilateral geriatric stone left more than right, probably passed 3. End-stage renal disease on hemodialysis next 4. Hypertension next 5. Dyslipidemia 6. Leukocytosis 7. UTI EDGARD MARCOS MD Nov 29, 2024 16:47
[2024-11-29 18:57] VITALS: BP 121/72; PULSE 68; RESP 16; TEMP 97.6; O2SAT 92
== END 2024-11-29 20:34 | disposition home or self-care (01) | DRG 871 ==
LOC: ER 11:51 → OVERFLOW 18:54 → CENTRAL 23:46
PROVIDERS: ADMIT Internal Medicine; ATTEND Internal Medicine
DX: A41.9 Sepsis, unspecified organism (principal); N18.6 End stage renal disease; N17.9 Acute kidney failure, unspecified; N20.2 Calculus of kidney with calculus of ureter; I12.0 Hypertensive chronic kidney disease with stage 5 chronic kidney disease or end stage renal disease; N13.6 Pyonephrosis; E11.65 Type 2 diabetes mellitus with hyperglycemia; E78.5 Hyperlipidemia, unspecified; D63.1 Anemia in chronic kidney disease; E11.22 Type 2 diabetes mellitus with diabetic chronic kidney disease; E11.51 Type 2 diabetes mellitus with diabetic peripheral angiopathy without gangrene; Z80.3 Family history of malignant neoplasm of breast; Z82.3 Family history of stroke; Z82.49 Family history of ischemic heart disease and other diseases of the circulatory system; Z83.3 Family history of diabetes mellitus; Z99.2 Dependence on renal dialysis; Z79.82 Long term (current) use of aspirin; Z79.899 Other long term (current) drug therapy
CPT/HCPCS: 36415; 74018; 74176; 76775; 80053; 81001; 82962; 85025; 87081; 96365; 96375; 99291; G0378; J1815; Q0162

== ENCOUNTER 2025-01-17 13:04 | Inpatient (IN) | payer MEDICARE, MEDICAID ==
[~2025-01-17] VITALS: Ht 162.6 cm; Wt 107.1 kg
[~2025-01-17 13:04] MED LIST changes: +CEPH500T PO; +HYDR-4902 PO; +NALO4SPR2
--- NOTE | 2025-01-17 13:24 | ED.PDOC ---
History of Present Illness HPI Comments This is a 59 year old female SHAY presenting to the ED with chief complaint of abnormal labs. Patient reports she was at dialysis today when lab work results were received from a recent blood draw on last Friday. Patient relays that after she had finished dialysis, she was advised to be evaluated by the ED by Dr. Pa for abnormal labs, however, she is not sure what exactly about her labs was abnormal. Patient denies any symptoms or concerns at this time. EMS notes patient had a recent UTI a month ago and was treated with antibiotics already. Chief Complaint: Abnormal LAB's Time Seen by MD: 13:22 Primary Care Provider: DR. REINA Reviewed Notes: Nurses Notes, Wound Care Physician Notes, Medications, Allergies Allergies: Coded Allergies: NO KNOWN ALLERGIES (Unverified , 09/19/17) Home Meds Active Scripts Hydrocodone-Acetaminophen (Hydrocodone Bitartrate/AC 5-325 mg) 1 Tab Tab, 1 TAB PO Q8HP PRN, #10 TAB Prov:EDGARD MARCOS MD 11/29/24 Cephalexin Monohydrate (Cephalexin) 500 Mg Tab, 500 MG PO DAILY for 5 Days, #5 TAB Prov:EDGARD MARCOS MD 11/29/24 Naloxone HCl (Narcan) 4 Mg/0.1 Ml Spr, 4 MG NA SUPERVISOR TUMBLERS, #2 SPRAY Prov:EDGARD MARCOS MD 11/29/24 Pantoprazole Sodium Sesquihydr (Pantoprazole Sodium) 40 Mg Tab, 40 MG PO DAILY, #30 TAB Prov:LINDSAY WHITING MD 11/11/19 Sodium Bicarbonate (Sodium Bicarbonate) 650 Mg Tab, 650 MG PO BID, #60 TAB Prov:LINDSAY WHITING MD 11/11/19 Metoprolol Tartrate (Lopressor) 25 Mg Tb, 25 MG PO BID, #60 TAB Prov:LINDSAY WHITING MD 11/11/19 Atorvastatin Calcium (ATORVASTATIN CALCIUM) 20 Mg Tab, 20 MG PO HS, #30 TAB Prov:LINDSAY WHITING MD 11/11/19 Aspirin (Asa) 81 Mg Ch, 81 MG PO DAILY, #30 TAB.CHEW Prov:LINDSAY WHITING MD 11/11/19 Amlodipine Besylate (NORVASC TABLET) 5 Mg Tb, 10 MG PO DAILY, #30 TAB Prov:LINDSAY WHITING MD 11/11/19 Information Source: Patient, Emergency Med Personnel Mode of Arrival: EMS Severity: Mild Timing: Hours Duration: Since onset Prehospital treatment: None Past Medical History PAST MEDICAL HISTORY: Anemia, CKF, DM, High Lipids, HTN Surgical History: Denies all surgeries 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 all 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 Family History Family History: Reviewed,noncontributory to illness, Family hx of DM, Family hx of HTN Social History Smoker: Non-Smoker Alcohol: Occasionally Drugs: Denies Drug Use Lives In: Home Constitutional: denies: chills, diaphoresis, fatigue, fever, malaise, sweats, weakness, others EENTM: denies: blurred vision, double vision, ear bleeding, ear discharge, ear drainage, ear pain, ear ringing, eye pain, eye redness, hearing loss, mouth pain, mouth swelling, nasal discharge, nose bleeding, nose congestion, nose pain, photophobia, tearing, throat pain, throat swelling, voice changes, others Respiratory: denies: cough, hemoptysis, orthopnea, SOB at rest, shortness of breath, SOB with excertion, stridor, wheezing, others Cardiovascular: denies: chest pain, dizzy spells, diaphoresis, Dyspnea on e xertion, edema, irregular heart beat, left arm pain, lightheadedness, palpitations, PND, syncope, others Gastrointestinal: denies: abdomen distended, abdominal pain, blood streaked bowels, constipated, diarrhea, dysphagia, difficulty swallowing, hematemesis, melena, nausea, poor appetite, poor fluid intake, rectal bleeding, rectal pain, vomiting, others Genitourinary: denies: abnormal vagina bleeding, burning, dyspareunia, dysuria, flank pain, frequency, hematuria, incontinence, pain, , vagina discharge, urgency, others Neurological: denies: dizziness, fainting, headache, left sided numbness, left sided weakness, numbness, paresthesia, pre-existing deficit, right sided numbness, right sided weakness, seizure, speech problems, tingling, tremors, weakness, others Musculoskeletal: denies: back pain, gout, joint pain, joint swelling, muscle pain, muscle stiffness, neck pain, others Integumetry: denies: bruises, change in color, change in hair/nails, dryness, laceration, lesions, lumps, rash, wounds, others Allergic/Immunocompromised: denies: Difficulty Healing, Frequent Infections, Hives, Itching, others Hematologic/Lymphatic: denies: anemia, blood clots, easy bleeding, easy bruising, swollen glands, others Endocrine: denies: excessive hunger, excessive sweating, excessive thirst, excessive urination, flushing, intolerance to cold, intolerance to heat, unexplained weight gain, unexplained weight loss, others Psychiatric: denies: anxiety, bipolar disorder, depression, hopeless, panic disorder, schizophrenia, sleepless, suicidal, others All Other Systems: Reviewed and Negative Physical Exam General Appearance: Moderate Distress, Normal HEENT: Normal ENT Inspection, Pharynx Normal, TMs Normal Neck: Full Range of Motion, Non-Tender, Normal, Normal Inspection Respiratory: Chest Non-Tender, Lungs Clear, No Accessory Muscle Use, No Respiratory Distress, Normal Breath Sounds Cardiovascular: No Edema, No JVD, No Murmur, No Gallop, Normal Peripheral Pulses, Regular Rate/Rhythm Breast Exam: Deferred Gastrointestinal: No Organomegaly, Non Tender, No Pulsatile Mass, Normal Bowel Sounds, Soft Genitalia: Deferred Pelvic: Deferred Rectal: Deferred Extremities: No calf tenderness, Normal capillary refill, Normal inspection, Normal range of motion, Non-tender, No pedal edema Musculoskeletal : Apperance: Normal Neurologic: Alert, manager nuclear II-XII nml as Tested, No Motor Deficits, Normal Affect, Normal Mood, No Sensory Deficits Cerebellar Function: NOT DONE Reflexes: NOT DONE Skin: Dry, Normal Color, Warm Peripheral Pulses: 3+ Radial (R), 3+ Radial (L) Lymphatic: No Adenopathy Was a procedure done? Was a procedure done?: No Differential Dx Considerations may include: Anemia Electrolyte imbalance X-Ray, Labs, Meds, VS Vital Signs Date Time Temp Pulse Resp B/P (MAP) Pulse Ox O2 Delivery O2 Flow Rate FiO2 01/17/25 13:22 98.1 80 16 126/60 99 98.1 Lab Test 01/17/25 14:06 Range/Units White Blood Count 10.7 4.4-10.8 10^3/uL Red Blood Count 3.24 L 4.0-5.20 10^6/uL Hemoglobin 10.4 L 12.2-16.2 g/dL Hematocrit 30.5 L 36.0-46.0 % Mean Corpuscular Volume 94.1 80.0-100.0 fL Mean Corpuscular Hemoglobin 32.1 H 28.0-32.0 pg Mean Corpuscular Hemoglobin Concent 34.1 32.0-36.0 g/dL Red Cell Distribution Width 13.5 11.8-14.3 % Platelet Count 221 140-450 10^3/uL Mean Platelet Volume 8.5 6.9-10.8 fL Neutrophils (%) (Auto) 86.0 H 37.0-80.0 % Lymphocytes (%) (Auto) 7.6 L 10.0-50.0 % Monocytes (%) (Auto) 5.0 0.0-12.0 % Eosinophils (%) (Auto) 0.9 0.0-7.0 % Basophils (%) (Auto) 0.5 0.0-2.0 % Neutrophils # (Auto) 9.2 H 1.6-8.6 10 ^3/uL Lymphocytes # (Auto) 0.8 0.4-5.4 10 ^3/uL Monocytes # (Auto) 0.5 0-1.3 10 ^3/uL Eosinophils # (Auto) 0.1 0-0.8 10 ^3/uL Basophils # (Auto) 0.1 0-0.2 10 ^3/uL Nucleated Red Blood Cells 0.1 % Sodium Level 134 L 136-145 mmol/L Potassium Level 2.7 L 3.5-5.1 mmol/L Chloride Level 91 L 98-107 mmol/L Carbon Dioxide Level 30 20-31 mmol/L Anion Gap 13 5-15 Blood Urea Nitrogen 10 9-23 mg/dL Creatinine 3.69 H 0.550-1.02 mg/dL Glomerular Filtration Rate Calc 14 >90 mL/min BUN/Creatinine Ratio 2.7 L 10.0-20.0 Serum Glucose 132 H 74-106 mg/dL Calcium Level 8.9 8.7-10.4 mg/dL Patient alert. Vitals stable. Just finished her dialysis. Answering questions. No sign of any distress. Primary sent because of abdominal labs. Reviewed her labs done at outside facility. Potassium is low. Was given potassium. Explained to the patient. Continue monitoring. Time of 1ST Reevaluation: 14:22 Reevaluation 1ST: Unchanged Patient Education/Counseling: Diagnosis, Treatment Family Education/Counseling: No Family Present SEPSIS Sepsis Screen Physician Orders Urinalysis (01/17/25 13:25) Ondansetron Po (Zofran Po) (01/17/25 16:00) Vital Signs Date Time Temp Pulse Resp B/P (MAP) Pulse Ox O2 Delivery O2 Flow Rate FiO2 01/17/25 13:22 98.1 80 16 126/60 99 98.1 Laboratory Tests Test 01/17/25 14:06 White Blood Count 10.7 10^3/uL (4.4-10.8) Departure 1 Departure Time of Disposition: 13:28 Impression: Primary Impression: Hypokalemia Additional Impressions: Chronic kidney disease on chronic dialysis Uncontrolled diabetes mellitus Qualified Codes: E13.65 - Other specified diabetes mellitus with hyperglycemia Disposition: ADMITTED INPATIENT Admit to: Med Surg Condition: Guarded Critical Care Note Critical Care Time?: No Stability Stability form required: No Heart Score Heart Score: Heart Score Response (Comments) Value History N/A 0 EKG N/A 0 Age N/A 0 Risk Factors N/A 0 Troponin N/A 0 Total 0 I personally scribed for POLLY LIANG MD ([email or web address]) on 01/17/25 at 13:24. Electronically submitted by Jun Moses ([email or web address]). POLLY LIANG MD Jan 17, 2025 13:24
[2025-01-17 14:20] LABS: Hematocrit 30.5 % (36.0-46.0); Hemoglobin 10.4 g/dL (12.2-16.2); Mean Corpuscular Hemoglobin 32.1 pg (28.0-32.0); Mean Corpuscular Volume 94.1 fL (80.0-100.0); Nucleated Red Blood Cells % 0.1 %
[2025-01-17 14:23] LABS: Anion Gap 13 (5-15); Carbon Dioxide 30 mmol/L (20-31)
[2025-01-17 14:24] LABS: Calcium 8.9 mg/dL (8.7-10.4)
[2025-01-17 14:26] LABS: Chloride 91 mmol/L (98-107); Potassium 2.7 mmol/L (3.5-5.1); Sodium 134 mmol/L (136-145)
[2025-01-17 14:28] LABS: BUN/Creatinine Ratio 2.7 (10.0-20.0); Blood Urea Nitrogen 10 mg/dL (9-23)
[2025-01-17 14:29] LABS: Glucose 132 mg/dL (74-106)
[2025-01-17] MEDS: ONDANSETRON ODT 4 MG TAB PO ONE (15:55)
[2025-01-17] MEDS: POTASSIUM EFFERVESENT TAB 25 MEQ PO ONE (15:57)
[2025-01-17] MEDS ORDERED: DOCUSATE SOD 100 MG CAP PO PRN (22:15)
[2025-01-17] MEDS ORDERED: MORPHINE SULFATE INJ 2 MG/ml SYRG IV PRN (22:15)
[2025-01-17] MEDS ORDERED: NITROGLYCERIN 0.4 MG SL TAB SL PRN (22:15)
[2025-01-17] MEDS ORDERED: HYDROcodone-ACET 5/325MG TAB PO PRN (22:15)
[2025-01-17] MEDS ORDERED: ACETAMINOPHEN 325 MG TAB PO PRN (22:15)
[2025-01-18] MEDS: SODIUM CHLORIDE 0.9% 1,000 ML IV SCH (01:45)
--- NOTE | 2025-01-18 01:55 | DVHHPRES ---
History of Present Illness Resident Creating Document: JOVI WATTS RESIDENT History of Present Illness Natasha Llanes is a 59-year-old female with past medical history of type 2 diabetes mellitus, left foot diabetic ulcer, hypertension, ESRD on dialysis, kidney stones which have past, history of UTI is brought in by ambulance to the ED for evaluation of abnormal laboratory results. Patient reports she had dialysis earlier today, during which lab results from a blood draw last Friday were reviewed. Following dialysis, she was advised by Dr. Pa to come to the ED for further evaluation, though she is unsure of the specific abnormalities. Patient states that she feels weak since Friday and nauseous after getting the potassium drink. She also has a left heel diabetic ulcer for which home health does wound care. She denies any current symptoms, including fever, chills, vomiting, chest pain, or shortness of breath. She had history of urinary tract infection treated with antibiotics approximately one month ago. Past medical history: Type 2 diabetes mellitus, hypertension, ESRD, nephrolithiasis, history of UTI, diabetic ulcer Past surgical history: Left foot ulcer debridement Family history: Reviewed,noncontributory Personal history: Stopped smoking in 2020, denies any alcohol use or drug use Lives with: Family PCP: Dr. Pavon Review of Systems Constitutional: No: Fever, Chills, Sweats, Weakness, Malaise, Other Eyes: No: Pain, Vision change, Conjunctivae inflammation, Eyelid inflammation, Other, Redness ENT: No: Ear pain, Ear discharge, Nose pain, Nose discharge, Nose congestion, Mouth pain, Mouth swelling, Throat pain, Throat swelling, Other Respiratory: No: Cough, Dry, Shortness of breath, SOB with excertion, Wheezing, Hemoptysis, Pleuritic Pain, Sputum, Wheezing, Other Cardiovascular: No: Chest Pain, Palpitations, Orthopnea, Paroxysmal Noc. Dyspnea, Edema, Lt Headedness, Other Gastrointestinal: Nausea; No: Vomiting, Abdominal Pain, Diarrhea, Constipation, Melena, Hematochezia, Other Genitourinary: No Dysuria, No Frequency, No Incontinence, No Hematuria, No Retention, No Other Musculoskeletal: No: other, neck pain, shoulder pain, arm pain, back pain, hand pain, leg pain, foot pain Skin: No: Rash, Lesions, Jaundice, Bruising, Other Neurological: No: Weakness, Numbness, Incoordination, Change in speech, Confusion, Seizures, Other Allergies: Coded Allergies: NO KNOWN ALLERGIES (Unverified , 09/19/17) Medications Current Medications Medications Dose Ordered Sig/Rios Route Start Time Stop Time Status Last Admin Dose Admin Acetaminophen 325 mg Q4HP PRN PO 01/17/25 22:15 Acetaminophen/ Hydrocodone Bitart 1 tab Q4HP PRN PO 01/17/25 22:15 Docusate Sodium 100 mg BIDPRN PRN PO 01/17/25 22:15 Nitroglycerin 0.4 mg Q5MINP PRN SL 01/17/25 22:15 Morphine Sulfate 2 mg Q30M PRN IV 01/17/25 22:15 Exam Vital Signs Vital Signs Date Time Temp Pulse Resp B/P (MAP) Pulse Ox O2 Delivery O2 Flow Rate FiO2 01/18/25 01:15 81/51 (61) 01/17/25 23:46 98.2 85 12 96 98.2 Exam General: Patient alert and oriented in person, place and time. Patient following commands. generalized weakness HEENT: Normocephalic, atraumatic, moist mucous membranes Respiratory/pulmonary: Clear lungs bilaterally, vesicular murmurs present in almost all lung h[place], no associated crackles or wheezes. Cardiovascular: Normal heart sounds S1 and S2 with no associated murmurs Abdomen: Abdomen nondistended, there is no pain to palpation in any of the abdominal quadrants, no palpable masses. Extremities: Left heel diabetic ulcer, patent left arm fistula Peripheral Pulses: 3+ Radial (R). 3+ Radial (L). 3+ Dorsalis pedis (R). 3+ Dorsalis pedis(L) Skin: No rashes or pruritus, there is no sacral edema present at this time. Neurological: Intact cranial nerves with no focal neurologic deficits Labs/Xrays Labs Test 01/17/25 14:06 Range/Units White Blood Count 10.7 4.4-10.8 10^3/uL Red Blood Count 3.24 L 4.0-5.20 10^6/uL Hemoglobin 10.4 L 12.2-16.2 g/dL Hematocrit 30.5 L 36.0-46.0 % Mean Corpuscular Volume 94.1 80.0-100.0 fL Mean Corpuscular Hemoglobin 32.1 H 28.0-32.0 pg Mean Corpuscular Hemoglobin Concent 34.1 32.0-36.0 g/dL Red Cell Distribution Width 13.5 11.8-14.3 % Platelet Count 221 140-450 10^3/uL Mean Platelet Volume 8.5 6.9-10.8 fL Neutrophils (%) (Auto) 86.0 H 37.0-80.0 % Lymphocytes (%) (Auto) 7.6 L 10.0-50.0 % Monocytes (%) (Auto) 5.0 0.0-12.0 % Eosinophils (%) (Auto) 0.9 0.0-7.0 % Basophils (%) (Auto) 0.5 0.0-2.0 % Neutrophils # (Auto) 9.2 H 1.6-8.6 10 ^3/uL Lymphocytes # (Auto) 0.8 0.4-5.4 10 ^3/uL Monocytes # (Auto) 0.5 0-1.3 10 ^3/uL Eosinophils # (Auto) 0.1 0-0.8 10 ^3/uL Basophils # (Auto) 0.1 0-0.2 10 ^3/uL Nucleated Red Blood Cells 0.1 % Sodium Level 134 L 136-145 mmol/L Potassium Level 2.7 L 3.5-5.1 mmol/L Chloride Level 91 L 98-107 mmol/L Carbon Dioxide Level 30 20-31 mmol/L Anion Gap 13 5-15 Blood Urea Nitrogen 10 9-23 mg/dL Creatinine 3.69 H 0.550-1.02 mg/dL Glomerular Filtration Rate Calc 14 >90 mL/min BUN/Creatinine Ratio 2.7 L 10.0-20.0 Serum Glucose 132 H 74-106 mg/dL Calcium Level 8.9 8.7-10.4 mg/dL SEPSIS Sepsis Screen Date sepsis recognized/suspect: Jan 17, 2025 Time Sepsis recognized/suspect: 1315 Recent Procedure: No On Antibiotic Therapy: No Respiratory Rate >20: No Heart Rate >90: No Temp<36 C (96.8 F) or >38.3 C: No SBP <90 or MAP <65 mmHG: No New Acute Mental Status Change: No Is the patient on CPAP, BIPAP,: No Physician Orders Admit (01/17/25 22:08) Allergies (01/17/25 22:08) Code Status (01/17/25 22:08) Renal Standard(2gna,3gk,Lopho) (01/18/25 Breakfast) Acetaminophen Tablet (Tylenol Tablet) (01/17/25 22:15) Hydrocodone-Acet 5/325mg Tab ([place] /32 (01/17/25 22:15) Docusate Sodium Capsule (Colace Capsule) (01/17/25 22:15) Complete Blood Count (01/18/25 04:00) Comprehensive Metabolic Panel (01/18/25 04:00) Condition: Serious (01/17/25 22:08) Bedrest With Bathroom Privileg (01/17/25 22:08) Nitroglycerin Sublingual (Ntrostat Subli (01/17/25 22:15) Morphine Sulfate Injection (01/17/25 22:15) Oxygen By Nasal Cannula (01/17/25 22:08) Stat Ekg For Chest Pain (01/17/25 22:08) Notify Md Of Changes From Base (01/17/25 22:08) Talent Acquisition Specialist For 24 Hours (01/17/25 22:08) Emergency Dysrhythmia Protocol (01/17/25 22:08) Rhythm Strips Once Every Shift (01/17/25 22:08) Vital Signs Date Time Temp Pulse Resp B/P (MAP) Pulse Ox O2 Delivery O2 Flow Rate FiO2 01/18/25 01:15 81/51 (61) 01/17/25 23:46 98.2 85 12 73/56 (62) 96 98.2 01/17/25 18:17 98.6 83 12 91/52 (65) 96 98.6 Laboratory Tests Test 01/17/25 14:06 White Blood Count 10.7 10^3/uL (4.4-10.8) Medications Medications Dose Ordered Sig/Rios Route Start Time Stop Time Status Last Admin Dose Admin Ondansetron HCl 8 mg ONCE ONCE PO 01/17/25 16:00 01/17/25 16:01 DC 01/17/25 15:55 8 MG Potassium Bicarbonate 25 meq ONCE ONCE PO 01/17/25 15:30 01/17/25 15:31 DC 01/17/25 15:57 25 MEQ Assessment/Plan Assessment/Plan # Electrolyte imbalance post dialysis # post dialysis hypovolemia # ESRD on HD # hypokalemia # hyponatremia - potassium replaced, recheck potassium level -IV fluids given -bicarbonate 650 b.i.d. -monitored blood pressure # anemia of chronic disease - ordered iron panel -ordered ferritin # history of recurrent UTIs - urine and blood cultures ordered # history of Nephrolithiasis # diabetes mellitus # history of osteomyelitis and diabetic foot ulcer - ordered HbA1c # hypertension # obesity BMI 34.1 -patient counseled on regular exercise, diet modifications, lifestyle modifications for 13 minutes PPI prophylaxis: Protonix 40 mg p.o. DVT prophylaxis: Ambulatory Goals of care addressed with the patient for more than 27 minutes: Full code status Case discussed with , patient and nurse Plan discussed with: Patient, Other My Orders Orders - JOVI WATTS RESIDENT Procedure Category Date Status Time Admit ADMIT 01/17/25 Transmitted 22:08 Allergies RAMESH 01/17/25 In Process 22:08 Code Status CODE 01/17/25 Transmitted 22:08 Renal DIET 01/18/25 Transmitted Standard(2gna,3gk,Lopho) Breakfast Acetaminophen Tablet PHA 01/17/25 In Process (Tylenol Tablet) 22:15 Hydrocodone-Acet PHA 01/17/25 In Process 5/325mg Tab ([place] 22:15 Docusate Sodium PHA 01/17/25 In Process Capsule (Colace 22:15 Complete Blood Count LAB 01/18/25 Logged 04:00 Comprehensive LAB 01/18/25 Logged Metabolic Panel 04:00 Condition: Serious RAMESH 01/17/25 In Process 22:08 Bedrest With Bathroom RAMESH 01/17/25 In Process Privileg 22:08 Nitroglycerin PHA 01/17/25 In Process Sublingual (Ntrostat 22:15 Morphine Sulfate PHA 01/17/25 In Process Injection 22:15 Oxygen By Nasal RT 01/17/25 Transmitted Cannula 22:08 Stat Ekg For Chest RAMESH 01/17/25 In Process Pain 22:08 Notify Of Changes RAMESH 01/17/25 In Process From Base 22:08 Talent Acquisition Specialist For [facility] 01/17/25 In Process 24 Hours 22:08 Emergency Dysrhythmia RAMESH 01/17/25 In Process Protocol 22:08 Rhythm Strips Once [place] 01/17/25 In Process Every Shift 22:08 Date of Service: Jan 18, 2025 Billing Provider: BEULAH SCANLON MD Common Visit Codes: [id number] INP/OBS CARE (HIGH) Secondary Visit Codes: [id number] CARE PLAN 30 MINUTES JOVI WATTS RESIDENT Jan 18, 2025 01:55
[2025-01-18] MEDS: LACTATED RINGER'S 250 ML IV ONE (03:41)
[2025-01-18 04:50] LABS: Alanine Aminotransferase 27 U/L (7-40); Albumin 4.2 g/dL (3.2-4.8); Alkaline Phosphatase 63 U/L (46-116); Anion Gap 13 (5-15); BUN/Creatinine Ratio 3.2 (10.0-20.0); Blood Urea Nitrogen 16 mg/dL (9-23); Calcium 9.3 mg/dL (8.7-10.4); Carbon Dioxide 30 mmol/L (20-31); Cholesterol 151 mg/dL (< 200); Total Protein 7.3 g/dL (5.7-8.2)
[2025-01-18 04:51] LABS: Bilirubin, Total 0.3 mg/dL (0.2-1.0)
[2025-01-18 05:23] LABS: Chloride 90 mmol/L (98-107); Glucose 117 mg/dL (74-106); HDL Cholesterol 19 mg/dL (40-59); Potassium 3.4 mmol/L (3.5-5.1); Sodium 133 mmol/L (136-145); Triglycerides 284 mg/dL (< 150)
[2025-01-18 05:33] LABS: Hematocrit 31.2 % (36.0-46.0); Hemoglobin 11.0 g/dL (12.2-16.2); Mean Corpuscular Hemoglobin 32.8 pg (28.0-32.0); Mean Corpuscular Volume 93.0 fL (80.0-100.0); Nucleated Red Blood Cells % 0.1 %
[2025-01-18] MEDS: PANTOPRAZOLE 40 MG TAB PO SCH ×2 (06:00→12:41)
--- NOTE | 2025-01-18 07:32 | DVH ---
CLINICAL INFORMATION: Rule out intrathoracic abnormality. TECHNIQUE: Single AP portable chest radiograph was obtained. COMPARISON: None FINDINGS: Lungs: Mild atelectasis in the lung bases. No focal consolidation. Mild bilateral interstitial opacit ies, of uncertain chronicity. No focal consolidation. Cardiac: Heart size is within normal limits. Pulmonary vasculature: Unremarkable. Mediastinum/samantha: Unremarkable. Bones: No acute osseous abnormality identified. Other: No other significant findings. IMPRESSION: Mild bilateral interstitial opacities are of uncertain chronicity, possibly chronic. Infectious or in flammatory etiology can not be completely excluded. Correlate with clinical findings. No focal cons olidation.
[2025-01-18 08:52] LABS: COVID19 ANTIGEN SOFIA FIA NEGATIVE (NEGATIVE)
--- NOTE | 2025-01-18 09:27 | DVHINCON2 ---
Date of service: Jan 18, 2025 Referring Physician Mark Marquez Reason for Consultation End-stage kidney disease History of Present Illness This is a 59-year-old female with history of end-stage kidney disease on hemodialysis on Friday schedule, type 2 diabetes, diabetic foot ulcer who was sent into the emergency room because of positive blood cultures. Patient has not been feeling well for the past 2 weeks. She has a chronic left heel diabetic ulcer for which she has been receiving wound care at [facility]. She had been complaining of generalized weakness and hence blood cultures were done at the dialysis unit. Results showed the evidence of Gram-negative bacteremia and hence she was advised to come to the emergency room. Patient seen and examined. Patient noted to be hypotensive in the emergency room. She was given fluid bolus. Also with evidence of hypokalemia post dialysis. Past Medical History As stated above Past Surgical History Dialysis access placement Family History: Cardiovascular disease G8 FATHER Cerebrovascular accident (CVA) GRANDMOM Diabetes mellitus G8 FATHER Hypertension G8 MOTHER Malignant neoplasm of breast G8 MOTHER AUNT Social History No active history of smoking, alcohol or drug abuse Allergies: Coded Allergies: NO KNOWN ALLERGIES (Unverified , 09/19/17) Home Meds Active Scripts Hydrocodone-Acetaminophen (Hydrocodone Bitartrate/AC 5-325 mg) 1 Tab Tab, 1 TAB PO Q8HP PRN, #10 TAB Prov:EDGARD MARCOS MD 11/29/24 Cephalexin Monohydrate (Cephalexin) 500 Mg Tab, 500 MG PO DAILY for 5 Days, #5 TAB Prov:EDGARD MARCOS MD 11/29/24 Naloxone HCl (Narcan) 4 Mg/0.1 Ml Spr, 4 MG NA DIRECTOR OF LOGISTICS, #2 SPRAY Prov:EDGARD MARCOS MD 11/29/24 Pantoprazole Sodium Sesquihydr (Pantoprazole Sodium) 40 Mg Tab, 40 MG PO DAILY, #30 TAB Prov:LINDSAY WHITING MD 11/11/19 Sodium Bicarbonate (Sodium Bicarbonate) 650 Mg Tab, 650 MG PO BID, #60 TAB Prov:LINDSAY WHITING MD 11/11/19 Metoprolol Tartrate (Lopressor) 25 Mg Tb, 25 MG PO BID, #60 TAB Prov:LINDSAY WHITING MD 11/11/19 Atorvastatin Calcium (ATORVASTATIN CALCIUM) 20 Mg Tab, 20 MG PO HS, #30 TAB Prov:LINDSAY WHITING MD 11/11/19 Aspirin (Asa) 81 Mg Ch, 81 MG PO DAILY, #30 TAB.CHEW Prov:LINDSAY WHITING MD 11/11/19 Amlodipine Besylate (NORVASC TABLET) 5 Mg Tb, 10 MG PO DAILY, #30 TAB Prov:LINDSAY WHITING MD 11/11/19 Current Medications Current Medications Medications (Trade) Dose Ordered Sig/Rios Route PRN Reason Start Time Stop Time Status Last Admin Acetaminophen (Tylenol Tablet) 325 mg Q4HP PRN PO MILD PAIN (1-3 PAIN SCALE) 01/17/25 22:15 Acetaminophen/ Hydrocodone Bitart ([place] 5/325MG Tab) 1 tab Q4HP PRN PO MODERATE PAIN (4-6 PAIN SCALE) 01/17/25 22:15 Docusate Sodium (Colace Capsule) 100 mg BIDPRN PRN PO FOR CONSTIPATION 01/17/25 22:15 Nitroglycerin (Ntrostat Sublingual) 0.4 mg Q5MINP PRN SL FOR CHEST PAIN 01/17/25 22:15 01/18/25 01:32 DC Morphine Sulfate 2 mg Q30M PRN IV FOR CHEST PAIN 01/17/25 22:15 01/18/25 03:12 DC Amlodipine Besylate (Norvasc Tablet) 10 mg DAILY PO 01/18/25 10:00 Cancel Metoprolol Tartrate (Lopressor Tablet) 25 mg BID PO 01/18/25 10:00 01/18/25 03:12 DC Pantoprazole Sodium (Protonix Tablet) 40 mg DAILY PO 01/18/25 10:00 Sodium Chloride 1,000 ml @ 75 mls/hr [id number] IV 01/18/25 01:45 01/18/25 03:12 DC 01/18/25 01:45 Sodium Bicarbonate 650 mg BID PO 01/18/25 10:00 Atorvastatin Calcium (Lipitor) 40 mg HS PO 01/18/25 22:00 Aspirin 81 mg DAILY PO 01/18/25 10:00 Pantoprazole Sodium (Protonix Tablet) 40 mg DAILY@0600 PO 01/18/25 06:00 01/18/25 06:00 Heparin Sodium (Porcine) 5,000 units Q12HR SC 01/18/25 10:00 UNV Review of Systems 12 point review of systems negative except as stated in the HPI Vital Signs Vital Signs Date Time Temp Pulse Resp B/P (MAP) Pulse Ox O2 Delivery O2 Flow Rate FiO2 01/18/25 07:46 Room Air* 0 21 01/18/25 07:40 98.3 81 16 91/36 (54) 97 98.3 Physical Exam Awake alert oriented x3 HEENT: Normocephaly, no JVD Lungs: Bilateral good air entry CVS: S1, S2 regular rate rhythm Abdomen: Soft, bowel sounds present [employer] INS[employer]OR: No focal deficits Extremities: Nonhealing left heel ulcer Labs/Diagnostic Data Labs Test 01/18/25 07:19 01/18/25 03:41 Range/Units SARS-CoV-2 Antigen (Rapid) Negative NEGATIVE White Blood Count 11.3 H 4.4-10.8 10^3/uL Red Blood Count 3.35 L 4.0-5.20 10^6/uL Hemoglobin 11.0 L 12.2-16.2 g/dL Hematocrit 31.2 L 36.0-46.0 % Mean Corpuscular Volume 93.0 80.0-100.0 fL Mean Corpuscular Hemoglobin 32.8 H 28.0-32.0 pg Mean Corpuscular Hemoglobin Concent 35.3 32.0-36.0 g/dL Red Cell Distribution Width 13.9 11.8-14.3 % Platelet Count 222 140-450 10^3/uL Mean Platelet Volume 9.1 6.9-10.8 fL Neutrophils (%) (Auto) 82.2 H 37.0-80.0 % Lymphocytes (%) (Auto) 9.0 L 10.0-50.0 % Monocytes (%) (Auto) 7.7 0.0-12.0 % Eosinophils (%) (Auto) 0.6 0.0-7.0 % Basophils (%) (Auto) 0.5 0.0-2.0 % Neutrophils # (Auto) 9.3 H 1.6-8.6 10 ^3/uL Lymphocytes # (Auto) 1.0 0.4-5.4 10 ^3/uL Monocytes # (Auto) 0.9 0-1.3 10 ^3/uL Eosinophils # (Auto) 0.1 0-0.8 10 ^3/uL Basophils # (Auto) 0.1 0-0.2 10 ^3/uL Nucleated Red Blood Cells 0.1 % Sodium Level 133 L 136-145 mmol/L Potassium Level 3.4 L 3.5-5.1 mmol/L Chloride Level 90 L 98-107 mmol/L Carbon Dioxide Level 30 20-31 mmol/L Anion Gap 13 5-15 Blood Urea Nitrogen 16 9-23 mg/dL Creatinine 5.01 #H 0.550-1.02 mg/dL Glomerular Filtration Rate Calc 10 >90 mL/min BUN/Creatinine Ratio 3.2 L 10.0-20.0 Serum Glucose 117 H 74-106 mg/dL Hemoglobin A1c 6.4 H <5.7 % A1C Calcium Level 9.3 8.7-10.4 mg/dL Total Bilirubin 0.3 0.2-1.0 mg/dL Aspartate Amino Transferase (AST) 27 13-40 U/L Alanine Aminotransferase (ALT) 27 7-40 U/L Alkaline Phosphatase 63 46-116 U/L Total Protein 7.3 5.7-8.2 g/dL Albumin 4.2 3.2-4.8 g/dL Triglycerides Level 284 H < 150 mg/dL Cholesterol Level 151 < 200 mg/dL LDL Cholesterol 80 < 100 mg/dL HDL Cholesterol 19 L 40-59 mg/dL Thyroid Stimulating Hormone (TSH) 3.46 0.55-4.78 uIU/mL Assessment End-stage kidney disease on hemodialysis Gram-negative bacteremia in the outpatient setting Left heel nonhealing ulcer Hypotension Hypokalemia Hyponatremia Plan/Recommendation Blood culture x2 Start patient on empiric antibiotics for Gram-negative coverage. We will start patient on ceftazidime 1 g IV Q 24 hours. Podiatry evaluation. ID evaluation. Need to evaluate for source of bacteremia. May consider getting an echocardiogram. Patient to undergo dialysis tomorrow. Plan discussed with: Patient BJ ESPINOSA MD Jan 18, 2025 09:27
[2025-01-18] MEDS ORDERED: METOPROLOL TARTRATE 25 MG TAB PO SCH (10:00)
[2025-01-18] MEDS ORDERED: SODIUM BICARBONATE 650 MG TAB PO SCH (10:00)
[2025-01-18 11:13] LABS: INR 1.06 (0.9-1.15); Partial Thromboplastin Time 23.4 SEC (24.5-34.5); Prothrombin Time 11.2 sec (9.3-11.8)
[2025-01-18 12:23] VITALS: PULSE 81; RESP 14; O2SAT 94
[2025-01-18] MEDS: HEPARIN SODIUM (PORCINE) 5000 UNITS/ML 1ML VIAL SC SCH (12:44)
[2025-01-18] MEDS: cefTAZidime 1 GM in SODIUM CHL 0.9% 50 ML IV SCH (12:45)
[2025-01-18 13:00] VITALS: BP 100/53; PULSE 81; RESP 16; TEMP 97.6; O2SAT 97
[2025-01-18 13:27] VITALS: BP 100/53; PULSE 81; RESP 16; TEMP 97.6; O2SAT 97
[2025-01-18] MEDS ORDERED: VANCOMYCIN PER PHARMACY 0 MG IV SCH (15:15)
[2025-01-18 17:00] VITALS: BP 110/60; PULSE 82; RESP 16; TEMP 98.2; O2SAT 98
[2025-01-18] MEDS: VANCOMYCIN 1.5GM/250ML 250 ML IV ONE (18:53)
[2025-01-18 20:00] VITALS: PULSE 88; RESP 18; O2SAT 94
[2025-01-18 21:00] VITALS: BP 104/62; PULSE 88; RESP 18; TEMP 97.7; O2SAT 94
--- NOTE | 2025-01-18 21:23 | DVHPN2 ---
Subjective Cross covering for [facility]ist today. Patient is seen evaluated chart is reviewed as well as discussed with the bus driver. Patient admitted here with a apparently Gram-negative bacteremia found on blood cultures as outpatient basis. Changes from previous H/P or p: No Changes Eyes: No Pain, No Vision change, No Conjunctivae inflammation, No Eyelid inflammation, No Other, No Redness ENT: No Ear pain, No Ear discharge, No Nose pain, No Nose discharge, No Nose congestion, No Mouth pain, No Mouth swelling, No Throat pain, No Throat swelling, No Other Cardiovascular: No Chest Pain, No Palpitations, No Orthopnea, No Paroxysmal Noc. Dyspnea, No Edema, No Lt Headedness, No Other Respiratory: No Cough, No Dry, No Shortness of breath, No SOB with excertion, No Wheezing, No Hemoptysis, No Pleuritic Pain, No Sputum, No Other Gastrointestinal: Nausea; No Vomiting, No Abdominal Pain, No Diarrhea, No Constipation, No Melena, No Hematochezia, No Other Genitourinary: No Dysuria, No Frequency, No Incontinence, No Hematuria, No Retention, No Other Musculoskeletal: No other, No neck pain, No shoulder pain, No arm pain, No back pain, No hand pain, No leg pain, No foot pain Skin: No Rash, No Lesions, No Jaundice, No Bruising, No Other Objective Vitals Vital Signs Date Time Temp Pulse Resp B/P (MAP) Pulse Ox O2 Delivery O2 Flow Rate FiO2 01/18/25 17:00 98.2 82 16 110/60 (77) 98 98.2 01/18/25 13:27 Room Air* 0 21 Intake/Output Intake and Output 01/18/25 07:00 Intake Total 325 ml Balance 325 ml IV Total 325 ml Exam Alert awake oriented to person. Comfortable in bed. No complaints. HEENT neck supple no JVD. Pupils equal round react to light. Heart regular rate and rhythm S1-S2 without murmurs. Lungs fair air movement without rales wheezes. Abdomen soft nontender positive bowel sounds obese. Extremities no edema positive pulses. Medications Current Medications Medications Dose Ordered Sig/Rios Route Start Time Stop Time Status Last Admin Dose Admin Acetaminophen 325 mg Q4HP PRN PO 01/17/25 22:15 Acetaminophen/ Hydrocodone Bitart 1 tab Q4HP PRN PO 01/17/25 22:15 Docusate Sodium 100 mg BIDPRN PRN PO 01/17/25 22:15 Amlodipine Besylate 10 mg DAILY PO 01/18/25 10:00 Cancel Atorvastatin Calcium 40 mg HS PO 01/18/25 22:00 Aspirin 81 mg DAILY PO 01/18/25 10:00 01/18/25 12:41 81 MG Pantoprazole Sodium 40 mg DAILY@0600 PO 01/18/25 06:00 01/18/25 06:00 40 MG Heparin Sodium (Porcine) 5,000 units Q12HR SC 01/18/25 10:00 01/18/25 12:44 5,000 UNITS Ceftazidime/ Dextrose 1 gm/ Sodium Chloride 50 ml @ 16.667 mls/ hr DAILY IV 01/18/25 11:00 01/18/25 12:45 16.667 MLS/HR Vancomycin HCl 0 ml @ 0 mls/hr UD IV 01/18/25 15:15 Laboratory Results Laboratory Tests 01/18/25 03:41 Chemistry Test 01/18/25 03:41 Albumin 4.2 g/dL (3.2-4.8) Calcium Level 9.3 mg/dL (8.7-10.4) Magnesium Level 2.1 mg/dL (1.6-2.6) Total Protein 7.3 g/dL (5.7-8.2) Coagulation Test 01/18/25 10:22 Prothrombin Time 11.2 sec (9.3-11.8) Prothrombin Time INR 1.06 (0.9-1.15) Activated Partial Thromboplast Time 23.4 SEC (24.5-34.5) L Lipid panel Test 01/18/25 03:41 Cholesterol Level 151 mg/dL (< 200) HDL Cholesterol 19 mg/dL (40-59) L Triglycerides Level 284 mg/dL (< 150) H LFT Test 01/18/25 03:41 Alanine Aminotransferase (ALT) 27 U/L (7-40) Alkaline Phosphatase 63 U/L (46-116) Aspartate Amino Transferase (AST) 27 U/L (13-40) Total Bilirubin 0.3 mg/dL (0.2-1.0) HgA1c, TSH Test 01/18/25 03:41 Hemoglobin A1c 6.4 % A1C (<5.7) H Thyroid Stimulating Hormone (TSH) 3.46 uIU/mL (0.55-4.78) Assessment/Plan Assessment/Plan Gram-negative bacteremia in the outpatient setting End-stage kidney disease on hemodialysis Left heel nonhealing ulcer Hypotension Hypokalemia Hyponatremia Continue IV antibiotics as she is on. We will add empiric vancomycin as well. We will repeat blood cultures in the hospital. Proceed with the hemodialysis. Podiatry consultation. Continue other home medications. Replace electrolytes as needed. Further clinical management per clinical course and recommendations from the consultants. Plan discussed with: Patient, Other My Orders Orders - MARLINE RUSSELL MD Procedure Category Date Status Time Complete Blood Count LAB 01/19/25 Verified 04:00 Basic Metabolic Panel LAB 01/19/25 Verified 04:00 Vancomycin Per PHA 01/18/25 In Process Pharmacy 15:15 Vancomycin,Random LAB 01/19/25 Verified 04:00 Vancomycin Per RAMESH 01/18/25 In Process Pharmacy Protoc 15:35 Date of Service: Jan 18, 2025 Billing Provider: MARLINE RUSSELL MD Common Visit Codes: [id number] INP/OBS CARE(MOD) MARLINE RUSSELL MD Jan 18, 2025 21:23
[2025-01-18] MEDS: ATORVASTATIN 20 MG TAB PO SCH (22:13)
[2025-01-19] VITALS (7 sets, daily range): BP systolic 87–111; BP diastolic 40–71; PULSE 78–110; RESP 16–18; TEMP 97.7–99.3; O2SAT 92–98
[2025-01-19] MEDS: SODIUM CHL 0.9% 1000 ML BAG XX ONE (07:00)
[2025-01-19 07:02] LABS: Hematocrit 27.6 % (36.0-46.0); Hemoglobin 9.6 g/dL (12.2-16.2); Mean Corpuscular Hemoglobin 32.5 pg (28.0-32.0); Mean Corpuscular Volume 93.1 fL (80.0-100.0)
[2025-01-19 07:09] LABS: Anion Gap 12 (5-15); Carbon Dioxide 29 mmol/L (20-31)
[2025-01-19 07:11] LABS: Chloride 91 mmol/L (98-107); Potassium 3.1 mmol/L (3.5-5.1); Sodium 132 mmol/L (136-145)
[2025-01-19 07:15] LABS: BUN/Creatinine Ratio 4.3 (10.0-20.0)
[2025-01-19 07:31] LABS: Glucose 174 mg/dL (74-106)
[2025-01-19 07:32] LABS: Blood Urea Nitrogen 31 mg/dL (9-23); Calcium 8.3 mg/dL (8.7-10.4)
[2025-01-19 09:51] LABS: Total Cells Counted 100.0 (100)
[2025-01-19 10:56] LABS: Hepatitis B Surface Antigen Negative (Negative)
--- NOTE | 2025-01-19 11:24 | DVHCONRES ---
Date Seen: Jan 19, 2025 Reason for Consultation Left heel wound History of Present Illness Natasha Llanes is a 59-year-old female with past medical history of type 2 diabetes mellitus, left foot diabetic ulcer, hypertension, ESRD on dialysis, kidney stones which have past, history of UTI is brought in by ambulance to the ED for evaluation of abnormal laboratory results. Patient reports she had dialysis earlier today, during which lab results from a blood draw last Friday were reviewed. Following dialysis, she was advised by Dr. Pa to come to the ED for further evaluation, though she is unsure of the specific abnormalities. Patient states that she feels weak since Friday and nauseous after getting the potassium drink. She also has a left heel diabetic ulcer for which home health does wound care. She denies any current symptoms, including fever, chills, vomiting, chest pain, or shortness of breath. She had history of urinary tract infection treated with antibiotics approximately one month ago. Past Medical History See H&P Past Surgical History See H&P Family History: Cardiovascular disease G8 FATHER Cerebrovascular accident (CVA) GRANDMOM Diabetes mellitus G8 FATHER Hypercholesterolemia G8 MOTHER Hypertension G8 MOTHER Malignant neoplasm of breast G8 MOTHER AUNT Allergies: Coded Allergies: NO KNOWN ALLERGIES (Unverified , 09/19/17) Home Meds Active Scripts Hydrocodone-Acetaminophen (Hydrocodone Bitartrate/AC 5-325 mg) 1 Tab Tab, 1 TAB PO Q8HP PRN, #10 TAB Prov:EDGARD MARCOS MD 11/29/24 Cephalexin Monohydrate (Cephalexin) 500 Mg Tab, 500 MG PO DAILY for 5 Days, #5 TAB Prov:EDGARD MARCOS MD 11/29/24 Naloxone HCl (Narcan) 4 Mg/0.1 Ml Spr, 4 MG NA [employer], #2 SPRAY Prov:EDGARD MARCOS MD 11/29/24 Pantoprazole Sodium Sesquihydr (Pantoprazole Sodium) 40 Mg Tab, 40 MG PO DAILY, #30 TAB Prov:LINDSAY WHITING MD 11/11/19 Sodium Bicarbonate (Sodium Bicarbonate) 650 Mg Tab, 650 MG PO BID, #60 TAB Prov:LINDSAY WHITING MD 11/11/19 Metoprolol Tartrate (Lopressor) 25 Mg Tb, 25 MG PO BID, #60 TAB Prov:LINDSAY WHITING MD 11/11/19 Atorvastatin Calcium (ATORVASTATIN CALCIUM) 20 Mg Tab, 20 MG PO HS, #30 TAB Prov:LINDSAY WHITING MD 11/11/19 Aspirin (Asa) 81 Mg Ch, 81 MG PO DAILY, #30 TAB.CHEW Prov:LINDSAY WHITING MD 11/11/19 Amlodipine Besylate (NORVASC TABLET) 5 Mg Tb, 10 MG PO DAILY, #30 TAB Prov:LINDSAY WHITING MD 11/11/19 Current Medications Current Medications Medications (Trade) Dose Ordered Sig/Rios Route PRN Reason Start Time Stop Time Status Last Admin Atorvastatin Calcium (Lipitor) 40 mg HS PO 01/18/25 22:00 01/18/25 22:13 Vancomycin HCl 0 ml @ 0 mls/hr UD IV 01/18/25 15:15 Vital Signs Vital Signs Date Time Temp Pulse Resp B/P (MAP) Pulse Ox O2 Delivery O2 Flow Rate FiO2 01/19/25 09:00 97.7 94 16 98/45 (62) 92 97.7 01/19/25 08:00 Room Air* 0 21 Physical Exam Dermatological: Skin is dry with mild erythema and some maceration around the wound site No gross deformities noted Mild non-pitting edema present bilaterally Left plantar heel wound probes deep to bone surrounding eschar with dry heme and malodor Vascular: Dorsalis pedis and posterior tibial pulses are 1+ bilaterally Capillary refill is under 2 seconds Skin temperature is warm bilaterally Neurologic: Protective sensation is absent on the plantar forefoot bilaterally Monofilament testing reveals decreased sensation in multiple plantar sites Musculoskeletal: Range of motion at the ankle and MTP joints is within normal limits. Strength is 5/5 in all tested muscle groups. Gait is antalgic due to offloading of the affected limb. Labs/Diagnostic Data Labs Test 01/19/25 06:14 01/18/25 10:22 01/18/25 10:13 01/18/25 07:19 Range/Units White Blood Count 11.2 H 4.4-10.8 10^3/uL Red Blood Count 2.96 L 4.0-5.20 10^6/uL Hemoglobin 9.6 L 12.2-16.2 g/dL Hematocrit 27.6 #L 36.0-46.0 % Mean Corpuscular Volume 93.1 80.0-100.0 fL Mean Corpuscular Hemoglobin 32.5 H 28.0-32.0 pg Mean Corpuscular Hemoglobin Concent 34.9 32.0-36.0 g/dL Red Cell Distribution Width 13.5 11.8-14.3 % Platelet Count 191 140-450 10^3/uL Mean Platelet Volume 8.4 6.9-10.8 fL Neutrophils (%) (Auto) 37.0-80.0 % Lymphocytes (%) (Auto) 10.0-50.0 % Monocytes (%) (Auto) 0.0-12.0 % Basophils (%) (Auto) 0.0-2.0 % Neutrophils # (Auto) 1.6-8.6 10 ^3/uL Lymphocytes # (Auto) 0.4-5.4 10 ^3/uL Monocytes # (Auto) 0-1.3 10 ^3/uL Differential Total Cells Counted 100.0 100 Neutrophils % (Manual) 95 H 37.0-80.0 Band Neutrophils % (Manual) 0 Lymphocytes % (Manual) 3 L 10.0-50.0 Monocytes % (Manual) 2 0-12 Eosinophils % (Manual) 0 0-7 Basophils % (Manual) 0 0.0-2.0 Metamyelocytes % (manual) 0 Myelocytes % (Manual) 0 Promyelocytes % (Manual) 0 Blast Cells % (Manual) 0 Reactive Lymphocytes 0 Platelet Estimate Adequate Sodium Level 132 L 136-145 mmol/L Potassium Level 3.1 L 3.5-5.1 mmol/L Chloride Level 91 L 98-107 mmol/L Carbon Dioxide Level 29 20-31 mmol/L Anion Gap 12 5-15 Blood Urea Nitrogen 31 #H 9-23 mg/dL Creatinine 7.22 #H 0.550-1.02 mg/dL Glomerular Filtration Rate Calc 6 >90 mL/min BUN/Creatinine Ratio 4.3 L 10.0-20.0 Serum Glucose 174 H 74-106 mg/dL Calcium Level 8.3 L 8.7-10.4 mg/dL Random Vancomycin Level 22.0 H 5-10 ug/mL Hepatitis B Surface Antigen Negative Negative Prothrombin Time 11.2 9.3-11.8 sec Prothrombin Time INR 1.06 0.9-1.15 Activated Partial Thromboplast Time 23.4 L 24.5-34.5 SEC Influenza Type A Antigen Negative Negative Influenza Type B Antigen Negative Negative SARS-CoV-2 Antigen (Rapid) Negative NEGATIVE Test 01/18/25 03:41 Range/Units Eosinophils (%) (Auto) 0.6 0.0-7.0 % Eosinophils # (Auto) 0.1 0-0.8 10 ^3/uL Basophils # (Auto) 0.1 0-0.2 10 ^3/uL Nucleated Red Blood Cells 0.1 % Hemoglobin A1c 6.4 H <5.7 % A1C Magnesium Level 2.1 1.6-2.6 mg/dL Total Bilirubin 0.3 0.2-1.0 mg/dL Aspartate Amino Transferase (AST) 27 13-40 U/L Alanine Aminotransferase (ALT) 27 7-40 U/L Alkaline Phosphatase 63 46-116 U/L Total Protein 7.3 5.7-8.2 g/dL Albumin 4.2 3.2-4.8 g/dL Triglycerides Level 284 H < 150 mg/dL Cholesterol Level 151 < 200 mg/dL LDL Cholesterol 80 < 100 mg/dL HDL Cholesterol 19 L 40-59 mg/dL Thyroid Stimulating Hormone (TSH) 3.46 0.55-4.78 uIU/mL Microbiology Date/Time Source Procedure Growth Status 01/18/25 10:22 Blood Blood Culture - Preliminary NO GROWTH AFTER 24 HOURS OF INCUBATION. Resulted Problems(with codes): (1) Leukocytosis (2) Obstructed, uropathy (3) Nausea & vomiting (4) Hypokalemia (5) Uncontrolled diabetes mellitus (6) Chronic kidney disease on chronic dialysis Plan/Recommendation ASSESSMENT: Patient is a 59 year old seen on the floor for a worsening ulcer PLAN: - The patients chart was reviewed, clinical findings were discussed with the patient, the etiologies of the conditions were discussed in detail, and a treatment plan was agreed to at this time, with both oral and written instructions provided. - recommend we get an MRI to rule out osteomyelitis versus abscess - continue broad-spectrum IV antibiotics - likely the source for the positive blood culture - after MRI we will follow up - patient will likely need I and D of the left foot All questions were answered and concerns addressed to the patient's satisfact ion. The patient was given the phone number to the clinic and was told how to make contact with the clinic should any concerns or questions arise. Patient understands that if any questions or concerns arise prior to the next appointment, we should be contacted immediately. FOLLOW-UP: Continue to follow while inpatient Plan discussed with: Patient Visit Coding Podiatry Date of Service if different f: Jan 19, 2025 Billing Provider: TYREE PITTS DPM Podiatry Common Visit Codes: CONSULT ONLY Podiatry Consult Codes: 18988-UA/OBS [id number] NEW/EST HI 80 TYREE PITTS DPM Jan 19, 2025 11:24
[2025-01-19 11:26] LABS: Hepatitis C Antibody Negative (Negative)
--- NOTE | 2025-01-19 11:39 | DVHSR ---
APPROVED REPORT EXAM: Two-dimensional and M-mode echocardiogram with Doppler and color Doppler. Blood Pressure: 98/39 mmHg INDICATION Bacteremia RISK FACTORS Obesity: Height: 5'4", Weight: 198 DIMENSIONS LVDd4.6 (3.8-5.7cm)LA (2D)3.5 (1.9-4.0cm)Aortic Root3.1 (2.0-3.7cm) LVDs3.2 (2.5-4.0cm)LA (MM) (1.9-4.0cm)Aortic Cusp Exc1.4 (1.5-2.0cm) EF (%) 60.0 (55-70%)Rt. Atrium4.1 (1.9-4.0cm)Asc. Aorta cm IVSd1.1 (0.7-1.1cm)RV (D) (1.8-2.4cm) PWd1.2 (0.7-1.1cm) Mitral Valve MitralMitral Stenosis E wave0.97m/sMV Mean GR.mmHg A wave0.96m/sMV Peak GR.mmHg E/A ratio1.02D MVAcm2 DECEL [id number] 1/2 Timems Aortic Valve Aortic ValveAortic Stenosis V11.20m/Tom Mean GR.9mmHg V22.09m/Tom Peak GR.17mmHg LVOT Diameter1.9 (1.8-2.4cm)Doppler AVA1.63cm2 Pulmonic Valve V20.96m/s Other Information Technically limited study due to body habitus and patient position. Conclusion lvef 60% mild LVH normla RV functoin normal atria
--- NOTE | 2025-01-19 13:02 | DVH ---
EXAM: MRI MRI L FOOT WO CONTRAST INDICATION: r/o OM TECHNIQUE: Multiplanar and multisequence MR imaging of the left ankle was performed in the absence of gadolinium contrast. COMPARISON: None FINDINGS: [MEDIAL ANKLE]: Intact posterior tibialis, flexor hallucis longus, and flexor digitorum tendons.. Int act deltoid ligament. Intact spring ligament complex. [LOW LATERAL ANKLE]: Intact anterior talofibular, posterior talofibular, and calcaneofibular ligament s. Intact peroneal brevis and longus tendons without tenosynovitis. [HIGH LATERAL ANKLE]: Intact anterior and posterior inferior tibiofibular ligaments. [ANTERIOR ANKLE]: Intact anterior tibialis, extensor digitorum longus, and extensor hallucis longus t endons. [POSTERIOR ANKLE]: No tibiotalar or subtalar joint effusion. Normal sinus Tarsi. Thickening of the ce ntral cord of the plantar fascia. Mild distal Achilles tendon thickening with loss of normal concavit y indicative of Achilles tendinosis. No retrocalcaneal bursitis. [MIDFOOT]: Normal. [BONES]: Significant posterior heel fat pad volume loss. Trace high-signal intensity along the body finisher ior inferior calcaneal tuberosity which may represent trace osteomyelitis in the appropriate clinical setting. [MUSCLES]: Severe fatty atrophy of the intrinsic distal musculature of the forefoot. [NEUROVASCULAR]: Normal tarsal tunnel [OTHER]: None IMPRESSION: 1. Significant posterior heel fat pad volume loss. Trace high-signal intensity along the posterior in ferior calcaneal tuberosity which may represent trace osteomyelitis in the appropriate clinical setti ng. 2. Severe fatty atrophy of the intrinsic distal musculature of the forefoot.
[2025-01-19] MEDS: VANCOMYCIN 500mg/100mL 100 ML IV ONE (13:33)
[2025-01-19 15:17] LABS: Hematocrit 27.3 % (36.0-46.0); Hemoglobin 9.3 g/dL (12.2-16.2); Mean Corpuscular Hemoglobin 32.6 pg (28.0-32.0); Mean Corpuscular Volume 95.7 fL (80.0-100.0); Nucleated Red Blood Cells % 0.0 %
[2025-01-19 15:26] LABS: Anion Gap 7 (5-15); Chloride 97 mmol/L (98-107); Potassium 3.4 mmol/L (3.5-5.1); Sodium 136 mmol/L (136-145)
[2025-01-19 15:30] LABS: Calcium 8.2 mg/dL (8.7-10.4); Carbon Dioxide 32 mmol/L (20-31)
--- NOTE | 2025-01-19 15:30 | DVHPN2 ---
Subjective I am assuming the care of the patient from today onwards. Patient is here for generalized weakness and was sent by Nephrology for Gram-negative bacteremia in the outpatient setting. Changes from previous H/P or p: No Changes Eyes: No Pain, No Vision change, No Conjunctivae inflammation, No Eyelid inflammation, No Other, No Redness ENT: No Ear pain, No Ear discharge, No Nose pain, No Nose discharge, No Nose congestion, No Mouth pain, No Mouth swelling, No Throat pain, No Throat swelling, No Other Cardiovascular: No Chest Pain, No Palpitations, No Orthopnea, No Paroxysmal Noc. Dyspnea, No Edema, No Lt Headedness, No Other Respiratory: No Cough, No Dry, No Shortness of breath, No SOB with excertion, No Wheezing, No Hemoptysis, No Pleuritic Pain, No Sputum, No Other Gastrointestinal: Nausea; No Vomiting, No Abdominal Pain, No Diarrhea, No Constipation, No Melena, No Hematochezia, No Other Genitourinary: No Dysuria, No Frequency, No Incontinence, No Hematuria, No Retention, No Other Musculoskeletal: No other, No neck pain, No shoulder pain, No arm pain, No back pain, No hand pain, No leg pain, No foot pain Skin: No Rash, No Lesions, No Jaundice, No Bruising, No Other Objective Vitals Vital Signs Date Time Temp Pulse Resp B/P (MAP) Pulse Ox O2 Delivery O2 Flow Rate FiO2 01/19/25 13:00 98.0 78 17 87/40 (56) 95 98.0 01/19/25 08:00 Room Air* 0 21 Intake/Output Intake and Output 01/19/25 07:00 Intake Total 550 ml Balance 550 ml Intake Oral 300 ml IV Total 250 ml Exam HEENT pupils are reactive Neck is supple CV is S1-S2 regular rate and rhythm Diminished breath sounds bases GI positive bowel sounds Extremity no edema 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 Medications Current Medications Medications Dose Ordered Sig/Rios Route Start Time Stop Time Status Last Admin Dose Admin Acetaminophen 325 mg Q4HP PRN PO 01/17/25 22:15 Acetaminophen/ Hydrocodone Bitart 1 tab Q4HP PRN PO 01/17/25 22:15 Docusate Sodium 100 mg BIDPRN PRN PO 01/17/25 22:15 Amlodipine Besylate 10 mg DAILY PO 01/18/25 10:00 Cancel Atorvastatin Calcium 40 mg HS PO 01/18/25 22:00 01/18/25 22:13 40 MG Aspirin 81 mg DAILY PO 01/18/25 10:00 01/18/25 12:41 81 MG Pantoprazole Sodium 40 mg DAILY@0600 PO 01/18/25 06:00 01/19/25 05:50 40 MG Heparin Sodium (Porcine) 5,000 units Q12HR SC 01/18/25 10:00 01/18/25 22:41 5,000 UNITS Ceftazidime/ Dextrose 1 gm/ Sodium Chloride 50 ml @ 16.667 mls/ hr DAILY IV 01/18/25 11:00 01/18/25 12:45 16.667 MLS/HR Vancomycin HCl 0 ml @ 0 mls/hr UD IV 01/18/25 15:15 Laboratory Results Laboratory Tests 01/19/25 14:59 Chemistry Test 01/19/25 06:14 01/19/25 14:59 Calcium Level 8.3 mg/dL (8.7-10.4) L Pending Microbiology Microbiology Date/Time Source Procedure Growth Status 01/18/25 10:22 Blood Blood Culture - Preliminary NO GROWTH AFTER 24 HOURS OF INCUBATION. Resulted Assessment/Plan Assessment/Plan 59-year-old female with a known history of diabetes mellitus type 2, hypertension, dyslipidemia, end-stage renal disease on hemodialysis who was seen by Nephrology as an outpatient was sent for positive blood cultures. 1. Gram-negative bacteremia in the outpatient settings, repeat blood cultures 2. Generalized weakness 3.End-stage renal disease on hemodialysis 4. Diabetes mellitus type 2 5. Hypertension 6. Dyslipidemia 7. Diabetic foot wound -repeat blood cultures continue current IV antibiotics podiatry consultation. Plan discussed with: Patient My Orders Orders - EDGARD MARCOS MD Procedure Category Date Status Time Basic Metabolic Panel LAB 01/19/25 In Process 14:39 Date of Service: Jan 19, 2025 Billing Provider: EDGARD MARCOS MD Common Visit Codes: [id number] INP/OBS CARE(MOD) EDGARD MARCOS MD Jan 19, 2025 15:30
[2025-01-19 15:32] LABS: BUN/Creatinine Ratio 2.6 (10.0-20.0); Blood Urea Nitrogen 11 mg/dL (9-23)
[2025-01-19 15:36] LABS: Glucose 158 mg/dL (74-106)
--- NOTE | 2025-01-19 16:10 | DVHPN2 ---
Progress Note - Dictate Date Seen: Jan 19, 2025 Medical Necessity Reason Pt with a Central, PICC or Fol: No Subjective Feeling better . Underwent HD today . Blood cx from outpatient setting showing Klebsiella pn. vital signs Vital Sign Date Time Temp Pulse Resp B/P (MAP) Pulse Ox O2 Delivery O2 Flow Rate FiO2 01/19/25 13:00 98.0 78 17 87/40 (56) 95 98.0 01/19/25 08:00 Room Air* 0 21 Total Intake and Output 01/18/25 01/18/25 01/19/25 15:00 23:00 07:00 Intake Total 250 ml 300 ml Balance 250 ml 300 ml medications Current Medications Medications Dose Ordered Sig/Rios Route Start Time Stop Time Status Last Admin Dose Admin Acetaminophen 325 mg Q4HP PRN PO 01/17/25 22:15 Acetaminophen/ Hydrocodone Bitart 1 tab Q4HP PRN PO 01/17/25 22:15 Docusate Sodium 100 mg BIDPRN PRN PO 01/17/25 22:15 Amlodipine Besylate 10 mg DAILY PO 01/18/25 10:00 Cancel Atorvastatin Calcium 40 mg HS PO 01/18/25 22:00 01/18/25 22:13 40 MG Aspirin 81 mg DAILY PO 01/18/25 10:00 01/18/25 12:41 81 MG Pantoprazole Sodium 40 mg DAILY@0600 PO 01/18/25 06:00 01/19/25 05:50 40 MG Heparin Sodium (Porcine) 5,000 units Q12HR SC 01/18/25 10:00 01/18/25 22:41 5,000 UNITS Ceftazidime/ Dextrose 1 gm/ Sodium Chloride 50 ml @ 16.667 mls/ hr DAILY IV 01/18/25 11:00 01/18/25 12:45 16.667 MLS/HR Vancomycin HCl 0 ml @ 0 mls/hr UD IV 01/18/25 15:15 objective Awake alert oriented x3 HEENT: Normocephaly, no JVD Lungs: Bilateral good air entry CVS: S1, S2 regular rate rhythm Abdomen: Soft, bowel sounds present UNDER BASTER: No focal deficits Extremities: Nonhealing left heel ulcer laboratory and microbiology Laboratory Tests 01/19/25 14:59 Test 01/19/25 14:59 Range/Units Serum Glucose 158 H 74-106 mg/dL Problem List End-stage kidney disease on hemodialysis Gram-negative bacteremia in the outpatient setting. Cx showing Klebsiella pneumonia Left heel nonhealing ulcer with probable osteomyelitis Hypotension Hypokalemia Hyponatremia Assessment/Plan Continue IV abx . HD on MWF schedule Podiatry evaluation done Dietary Evaluation Review Comments: Nutrition Recommendation 1) CCHO 75gm + renal standard diet 2) Nephro-bahman 1 tab daily 3) Marcio 1 pk daily 4) Monitor PO intake, lab values, weight trend, and I/O Expected Outcomes/Goals: Wound to improve Lab values to improve Fu 3-5 days Plan discussed with: Patient BJ ESPINOSA MD Jan 19, 2025 16:10
[2025-01-20] VITALS (7 sets, daily range): BP systolic 108–150; BP diastolic 58–81; PULSE 72–82; RESP 18–20; TEMP 97.3–98.7; O2SAT 94–97
--- NOTE | 2025-01-20 12:34 | DVHPN2 ---
Subjective Natasha Llanes is a 59-year-old female with past medical history of type 2 diabetes mellitus, left foot diabetic ulcer, hypertension, ESRD on dialysis, kidney stones which have past, history of UTI is brought in by ambulance to the ED for evaluation of abnormal laboratory results. Patient reports she had dialysis earlier today, during which lab results from a blood draw last Friday were reviewed. Following dialysis, she was advised by Dr. Pa to come to the ED for further evaluation, though she is unsure of the specific abnormalities. Patient states that she feels weak since Friday and nauseous after getting the potassium drink. She also has a left heel diabetic ulcer for which [facility] does wound care. She denies any current symptoms, including fever, chills, vomiting, chest pain, or shortness of breath. She had history of urinary tract infection treated with antibiotics approximately one month ago. Changes from previous H/P or p: No Changes Eyes: No Pain, No Vision change, No Conjunctivae inflammation, No Eyelid inflammation, No Other, No Redness ENT: No Ear pain, No Ear discharge, No Nose pain, No Nose discharge, No Nose congestion, No Mouth pain, No Mouth swelling, No Throat pain, No Throat swelling, No Other Cardiovascular: No Chest Pain, No Palpitations, No Orthopnea, No Paroxysmal Noc. Dyspnea, No Edema, No Lt Headedness, No Other Respiratory: No Cough, No Dry, No Shortness of breath, No SOB with excertion, No Wheezing, No Hemoptysis, No Pleuritic Pain, No Sputum, No Other Gastrointestinal: Nausea; No Vomiting, No Abdominal Pain, No Diarrhea, No Constipation, No Melena, No Hematochezia, No Other Genitourinary: No Dysuria, No Frequency, No Incontinence, No Hematuria, No Retention, No Other Musculoskeletal: No other, No neck pain, No shoulder pain, No arm pain, No back pain, No hand pain, No leg pain, No foot pain Skin: No Rash, No Lesions, No Jaundice, No Bruising, No Other Objective Vitals Vital Signs Date Time Temp Pulse Resp B/P (MAP) Pulse Ox O2 Delivery O2 Flow Rate FiO2 01/20/25 08:30 Room Air* 0 21 01/20/25 08:30 97.3 75 18 132/79 (96) 95 97.3 Intake/Output Intake and Output 01/20/25 07:00 Intake Total 1150 ml Output Total 50 ml Balance 1100 ml Intake Oral 1150 ml Output Urine Total 50 ml Exam Dermatological: Skin is dry with mild erythema and some maceration around the wound site No gross deformities noted Mild non-pitting edema present bilaterally Left plantar heel wound with dry heme and callus formation Vascular: Dorsalis pedis and posterior tibial pulses are 1+ bilaterally Capillary refill is under 2 seconds Skin temperature is warm bilaterally Neurologic: Protective sensation is absent on the plantar forefoot bilaterally Monofilament testing reveals decreased sensation in multiple plantar sites Musculoskeletal: Range of motion at the ankle and MTP joints is within normal limits. Strength is 5/5 in all tested muscle groups. Gait is antalgic due to offloading of the affected limb. Medications Current Medications Medications Dose Ordered Sig/Rios Route Start Time Stop Time Status Last Admin Dose Admin Acetaminophen 325 mg Q4HP PRN PO 01/17/25 22:15 Acetaminophen/ Hydrocodone Bitart 1 tab Q4HP PRN PO 01/17/25 22:15 Docusate Sodium 100 mg BIDPRN PRN PO 01/17/25 22:15 Amlodipine Besylate 10 mg DAILY PO 01/18/25 10:00 Cancel Atorvastatin Calcium 40 mg HS PO 01/18/25 22:00 01/19/25 21:47 40 MG Aspirin 81 mg DAILY PO 01/18/25 10:00 01/20/25 09:12 81 MG Pantoprazole Sodium 40 mg DAILY@0600 PO 01/18/25 06:00 01/20/25 05:58 40 MG Heparin Sodium (Porcine) 5,000 units Q12HR SC 01/18/25 10:00 01/20/25 09:16 5,000 UNITS Ceftazidime/ Dextrose 1 gm/ Sodium Chloride 50 ml @ 16.667 mls/ hr DAILY IV 01/18/25 11:00 01/20/25 13:00 01/20/25 09:11 16.667 MLS/HR Vancomycin HCl 0 ml @ 0 mls/hr UD IV 01/18/25 15:15 Ceftazidime/ Dextrose 1 gm/ Sodium Chloride 50 ml @ 16.667 mls/ hr DAILY@2200 IV 01/21/25 22:00 Laboratory Results Laboratory Tests 01/19/25 14:59 01/20/25 06:39 Chemistry Test 01/19/25 14:59 Calcium Level 8.2 mg/dL (8.7-10.4) L Microbiology Microbiology Date/Time Source Procedure Growth Status 01/18/25 10:22 Blood Blood Culture - Preliminary NO GROWTH AFTER 48 HOURS OF INCUBATION. Resulted Assessment/Plan Assessment/Plan ASSESSMENT: Patient is a 59 year old seen on the floor for a worsening ulcer PLAN: - The patients chart was reviewed, clinical findings were discussed with the patient, the etiologies of the conditions were discussed in detail, and a treatment plan was agreed to at this time, with both oral and written instructions provided. - reviewed the MRI, trace amount of edema around the calcaneus, possible osteomyelitis - would not recommend surgical intervention at this point - would treat with antibiotics, defer to ID for that - continue follow up with her wound care nurse and Dr All questions were answered and concerns addressed to the patient's satisfaction. The patient was given the phone number to the clinic and was told how to make contact with the clinic should any concerns or questions arise. Patient understands that if any questions or concerns arise prior to the next appointment, we should be contacted immediately. FOLLOW-UP: Continue to follow while inpatient Plan discussed with: Patient Problem List: (1) Hypokalemia (2) Uncontrolled diabetes mellitus (3) Chronic kidney disease on chronic dialysis (4) Leukocytosis (5) Obstructed, uropathy (6) Nausea & vomiting Visit Coding Podiatry Date of Service if different f: Jan 20, 2025 Billing Provider: TYREE PITTS DPM Podiatry Common Visit Codes: [id number] INP/OBS CARE(HIGH) TYREE PITTS DPM Jan 20, 2025 12:33
--- NOTE | 2025-01-20 14:30 | DVHPN2 ---
Progress Note - Dictate Date Seen: Jan 20, 2025 Medical Necessity Reason Pt with a Central, PICC or Fol: No Subjective no acute issues overnight vital signs Vital Sign Date Time Temp Pulse Resp B/P (MAP) Pulse Ox O2 Delivery O2 Flow Rate FiO2 01/20/25 12:30 97.3 73 18 108/81 (90) 97 97.3 01/20/25 08:30 Room Air* 0 21 Total Intake and Output 01/19/25 01/19/25 01/20/25 15:00 23:00 07:00 Intake Total 800 ml 350 ml Output Total 25 ml 25 ml Balance 775 ml 325 ml medications Current Medications Medications Dose Ordered Sig/Rios Route Start Time Stop Time Status Last Admin Dose Admin Acetaminophen 325 mg Q4HP PRN PO 01/17/25 22:15 Acetaminophen/ Hydrocodone Bitart 1 tab Q4HP PRN PO 01/17/25 22:15 Docusate Sodium 100 mg BIDPRN PRN PO 01/17/25 22:15 Amlodipine Besylate 10 mg DAILY PO 01/18/25 10:00 Cancel Atorvastatin Calcium 40 mg HS PO 01/18/25 22:00 01/19/25 21:47 40 MG Aspirin 81 mg DAILY PO 01/18/25 10:00 01/20/25 09:12 81 MG Pantoprazole Sodium 40 mg DAILY@0600 PO 01/18/25 06:00 01/20/25 05:58 40 MG Heparin Sodium (Porcine) 5,000 units Q12HR SC 01/18/25 10:00 01/20/25 09:16 5,000 UNITS Vancomycin HCl 0 ml @ 0 mls/hr UD IV 01/18/25 15:15 Ceftazidime/ Dextrose 1 gm/ Sodium Chloride 50 ml @ 16.667 mls/ hr DAILY@2200 IV 01/21/25 22:00 objective Awake alert oriented x3 HEENT: Normocephaly, no JVD Lungs: Bilateral good air entry CVS: S1, S2 regular rate rhythm Abdomen: Soft, bowel sounds present KNOT TIER: No focal deficits Extremities: Nonhealing left heel ulcer laboratory and microbiology Laboratory Tests 01/20/25 06:39 01/19/25 14:59 Test 01/19/25 14:59 Range/Units Serum Glucose 158 H 74-106 mg/dL Problem List End-stage kidney disease on hemodialysis Gram-negative bacteremia in the outpatient setting. Cx showing Klebsiella pneumonia Left heel nonhealing ulcer with probable osteomyelitis Hypotension Hypokalemia Hyponatremia Assessment/Plan Continue IV abx . HD on MWF schedule Podiatry evaluation done . Recommend medical management Dietary Evaluation Review Comments: Nutrition Recommendation 1) CCHO 75gm + renal standard diet 2) Nephro-bahman 1 tab daily 3) Marcio 1 pk daily 4) Monitor PO intake, lab values, weight trend, and I/O Expected Outcomes/Goals: Wound to improve Lab values to improve Fu 3-5 days Plan discussed with: Patient BJ ESPINOSA MD Jan 20, 2025 14:30
--- NOTE | 2025-01-20 16:23 | DVHPN2 ---
Subjective Patient's repeat blood cultures are negative. Changes from previous H/P or p: No Changes Eyes: No Pain, No Vision change, No Conjunctivae inflammation, No Eyelid inflammation, No Other, No Redness ENT: No Ear pain, No Ear discharge, No Nose pain, No Nose discharge, No Nose congestion, No Mouth pain, No Mouth swelling, No Throat pain, No Throat swelling, No Other Cardiovascular: No Chest Pain, No Palpitations, No Orthopnea, No Paroxysmal Noc. Dyspnea, No Edema, No Lt Headedness, No Other Respiratory: No Cough, No Dry, No Shortness of breath, No SOB with excertion, No Wheezing, No Hemoptysis, No Pleuritic Pain, No Sputum, No Other Gastrointestinal: Nausea; No Vomiting, No Abdominal Pain, No Diarrhea, No Constipation, No Melena, No Hematochezia, No Other Genitourinary: No Dysuria, No Frequency, No Incontinence, No Hematuria, No Retention, No Other Musculoskeletal: No other, No neck pain, No shoulder pain, No arm pain, No back pain, No hand pain, No leg pain, No foot pain Skin: No Rash, No Lesions, No Jaundice, No Bruising, No Other Objective Vitals Vital Signs Date Time Temp Pulse Resp B/P (MAP) Pulse Ox O2 Delivery O2 Flow Rate FiO2 01/20/25 12:30 97.3 73 18 108/81 (90) 97 97.3 01/20/25 08:30 Room Air* 0 21 Intake/Output Intake and Output 01/20/25 07:00 Intake Total 1150 ml Output Total 50 ml Balance 1100 ml Intake Oral 1150 ml Output Urine Total 50 ml Exam HEENT pupils are reactive Neck is supple CV is S1-S2 regular rate and rhythm Diminished breath sounds bases GI positive bowel sounds Extremity no edema 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 Medications Current Medications Medications Dose Ordered Sig/Rios Route Start Time Stop Time Status Last Admin Dose Admin Acetaminophen 325 mg Q4HP PRN PO 01/17/25 22:15 Acetaminophen/ Hydrocodone Bitart 1 tab Q4HP PRN PO 01/17/25 22:15 Docusate Sodium 100 mg BIDPRN PRN PO 01/17/25 22:15 Amlodipine Besylate 10 mg DAILY PO 01/18/25 10:00 Cancel Atorvastatin Calcium 40 mg HS PO 01/18/25 22:00 01/19/25 21:47 40 MG Aspirin 81 mg DAILY PO 01/18/25 10:00 01/20/25 09:12 81 MG Pantoprazole Sodium 40 mg DAILY@0600 PO 01/18/25 06:00 01/20/25 05:58 40 MG Heparin Sodium (Porcine) 5,000 units Q12HR SC 01/18/25 10:00 01/20/25 09:16 5,000 UNITS Vancomycin HCl 0 ml @ 0 mls/hr UD IV 01/18/25 15:15 Ceftazidime/ Dextrose 1 gm/ Sodium Chloride 50 ml @ 16.667 mls/ hr DAILY@2200 IV 01/21/25 22:00 Laboratory Results Laboratory Tests 01/19/25 14:59 01/20/25 06:39 Microbiology Microbiology Date/Time Source Procedure Growth Status 01/18/25 10:22 Blood Blood Culture - Preliminary NO GROWTH AFTER 48 HOURS OF INCUBATION. Resulted Assessment/Plan Assessment/Plan 59-year-old female with a known history of diabetes mellitus type 2, hypertension, dyslipidemia, end-stage renal disease on hemodialysis who was seen by Nephrology as an outpatient was sent for positive blood cultures. 1. Gram-negative bacteremia in the outpatient settings, repeat blood cultures are negative 2. Generalized weakness 3.End-stage renal disease on hemodialysis 4. Diabetes mellitus type 2 5. Hypertension 6. Dyslipidemia 7. Diabetic foot wound left foot with a suspected osteomyelitis -continue current IV antibiotics podiatry consultation appreciated. -we will follow up with the culture and sensitivity we will arrange IV antibiotics as an outpatient. Plan discussed with: Patient, Other My Orders Orders - EDGARD MARCOS MD Procedure Category Date Status Time Apply: RAMESH 01/20/25 Verified 11:27 * Dietary Consult CONS 01/20/25 Verified 16:20 Date of Service: Jan 20, 2025 Billing Provider: EDGARD MARCOS MD Common Visit Codes: [id number] INP/OBS CARE(MOD) EDGARD MARCOS MD Jan 20, 2025 16:23
[2025-01-21 01:00] VITALS: BP 113/60; PULSE 76; RESP 20; TEMP 98.4; O2SAT 95
[2025-01-21 05:00] VITALS: BP 123/65; PULSE 78; RESP 19; TEMP 98.4; O2SAT 96
[2025-01-21 09:00] VITALS: BP 124/59; PULSE 75; RESP 16; TEMP 98.7; O2SAT 94
--- NOTE | 2025-01-21 09:33 | DVHPN2 ---
Progress Note - Dictate Date Seen: Jan 21, 2025 Medical Necessity Reason Pt with a Central, PICC or Fol: No Subjective no acute issues overnight undergoing HD vital signs Vital Sign Date Time Temp Pulse Resp B/P (MAP) Pulse Ox O2 Delivery O2 Flow Rate FiO2 01/21/25 05:00 98.4 78 19 123/65 (84) 96 98.4 01/20/25 20:20 Room Air* 0 21 Total Intake and Output 01/20/25 01/20/25 01/21/25 15:00 23:00 07:00 Intake Total 50 ml 1100 ml 300 ml Output Total 100 ml 100 ml Balance 50 ml 1000 ml 200 ml medications Current Medications Medications Dose Ordered Sig/Rios Route Start Time Stop Time Status Last Admin Dose Admin Acetaminophen 325 mg Q4HP PRN PO 01/17/25 22:15 Acetaminophen/ Hydrocodone Bitart 1 tab Q4HP PRN PO 01/17/25 22:15 Docusate Sodium 100 mg BIDPRN PRN PO 01/17/25 22:15 Amlodipine Besylate 10 mg DAILY PO 01/18/25 10:00 Cancel Atorvastatin Calcium 40 mg HS PO 01/18/25 22:00 01/20/25 22:11 40 MG Aspirin 81 mg DAILY PO 01/18/25 10:00 01/20/25 09:12 81 MG Pantoprazole Sodium 40 mg DAILY@0600 PO 01/18/25 06:00 01/21/25 05:56 40 MG Heparin Sodium (Porcine) 5,000 units Q12HR SC 01/18/25 10:00 01/20/25 22:12 5,000 UNITS Vancomycin HCl 0 ml @ 0 mls/hr UD IV 01/18/25 15:15 Ceftazidime/ Dextrose 1 gm/ Sodium Chloride 50 ml @ 16.667 mls/ hr DAILY@2200 IV 01/21/25 22:00 objective Awake alert oriented x3 HEENT: Normocephaly, no JVD Lungs: Bilateral good air entry CVS: S1, S2 regular rate rhythm Abdomen: Soft, bowel sounds present 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 Cx showing Klebsiella pneumonia Left heel nonhealing ulcer with probable osteomyelitis Hypotension Hypokalemia Hyponatremia Assessment/Plan Blood cx in the hospital has been negative so far Cx growing Klebsiella in the outpatient setting Continue IV abx . HD on MWF schedule stable from renal standpoint Dietary Evaluation Review Comments: Nutrition Recommendation 1) CCHO 75gm + renal standard diet 2) Nephro-bahman 1 tab daily 3) Marcio 1 pk daily 4) Monitor PO intake, lab values, weight trend, and I/O Expected Outcomes/Goals: Wound to improve Lab values to improve Fu 3-5 days Plan discussed with: Patient BJ ESPINOSA MD Jan 21, 2025 09:33
[2025-01-21] MEDS: SODIUM CHL 0.9% 1000 ML BAG XX ONE (12:37)
[2025-01-21] MEDS: VANCOMYCIN 500mg/100mL 100 ML IV ONE (12:45)
[2025-01-21 12:50] VITALS: BP 117/63; PULSE 77; RESP 18; TEMP 98.3; O2SAT 95
--- NOTE | 2025-01-21 16:46 | DVHPN2 ---
Subjective Patient's repeat blood cultures are negative. Changes from previous H/P or p: No Changes Eyes: No Pain, No Vision change, No Conjunctivae inflammation, No Eyelid inflammation, No Other, No Redness ENT: No Ear pain, No Ear discharge, No Nose pain, No Nose discharge, No Nose congestion, No Mouth pain, No Mouth swelling, No Throat pain, No Throat swelling, No Other Cardiovascular: No Chest Pain, No Palpitations, No Orthopnea, No Paroxysmal Noc. Dyspnea, No Edema, No Lt Headedness, No Other Respiratory: No Cough, No Dry, No Shortness of breath, No SOB with excertion, No Wheezing, No Hemoptysis, No Pleuritic Pain, No Sputum, No Other Gastrointestinal: Nausea; No Vomiting, No Abdominal Pain, No Diarrhea, No Constipation, No Melena, No Hematochezia, No Other Genitourinary: No Dysuria, No Frequency, No Incontinence, No Hematuria, No Retention, No Other Musculoskeletal: No other, No neck pain, No shoulder pain, No arm pain, No back pain, No hand pain, No leg pain, No foot pain Skin: No Rash, No Lesions, No Jaundice, No Bruising, No Other Objective Vitals Vital Signs Date Time Temp Pulse Resp B/P (MAP) Pulse Ox O2 Delivery O2 Flow Rate FiO2 01/21/25 12:50 98.3 77 18 117/63 (81) 95 98.3 01/21/25 08:00 Room Air* 0 21 Intake/Output Intake and Output 01/21/25 07:00 Intake Total 1450 ml Output Total 200 ml Balance 1250 ml Intake Oral 1400 ml IV Total 50 ml Output Urine Total 200 ml Exam HEENT pupils are reactive Neck is supple CV is S1-S2 regular rate and rhythm Diminished breath sounds bases GI positive bowel sounds Extremity no 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 Medications Current Medications Medications Dose Ordered Sig/Rios Route Start Time Stop Time Status Last Admin Dose Admin Acetaminophen 325 mg Q4HP PRN PO 01/17/25 22:15 Acetaminophen/ Hydrocodone Bitart 1 tab Q4HP PRN PO 01/17/25 22:15 Docusate Sodium 100 mg BIDPRN PRN PO 01/17/25 22:15 Amlodipine Besylate 10 mg DAILY PO 01/18/25 10:00 Cancel Atorvastatin Calcium 40 mg HS PO 01/18/25 22:00 01/20/25 22:11 40 MG Aspirin 81 mg DAILY PO 01/18/25 10:00 01/21/25 12:37 81 MG Pantoprazole Sodium 40 mg DAILY@0600 PO 01/18/25 06:00 01/21/25 05:56 40 MG Heparin Sodium (Porcine) 5,000 units Q12HR SC 01/18/25 10:00 01/21/25 12:37 5,000 UNITS Vancomycin HCl 0 ml @ 0 mls/hr UD IV 01/18/25 15:15 Ceftazidime/ Dextrose 1 gm/ Sodium Chloride 50 ml @ 16.667 mls/ hr DAILY@2200 IV 01/21/25 22:00 Laboratory Results Laboratory Tests 01/19/25 14:59 01/21/25 06:37 Microbiology Microbiology Date/Time Source Procedure Growth Status 01/18/25 10:22 Blood Blood Culture - Preliminary NO GROWTH AFTER 72 HOURS OF INCUBATION. Resulted Assessment/Plan Assessment/Plan 59-year-old female with a known history of diabetes mellitus type 2, hypertension, dyslipidemia, end-stage renal disease on hemodialysis who was seen by Nephrology as an outpatient was sent for positive blood cultures. 1. Gram-negative bacteremia in the outpatient settings, repeat blood cultures are negative 2. Generalized weakness 3.End-stage renal disease on hemodialysis 4. Diabetes mellitus type 2 5. Hypertension 6. Dyslipidemia 7. Diabetic foot wound left foot with a suspected osteomyelitis -continue current IV antibiotics podiatry consultation appreciated. -we will arrange IV antibiotics with the dialysis. Plan discussed with: Patient Date of Service: Jan 21, 2025 Billing Provider: EDGARD MARCOS MD Common Visit Codes: [id number] INP/OBS CARE(MOD) EDGARD MARCOS MD Jan 21, 2025 16:46
[2025-01-21 17:00] VITALS: BP 122/66; PULSE 74; RESP 20; TEMP 98.2; O2SAT 94
[2025-01-21 21:00] VITALS: BP 145/74; PULSE 76; RESP 17; TEMP 99.2; O2SAT 96
[2025-01-21] MEDS: EPOETIN ALFA-EPBX 4,000 UNIT/ML VIAL SC ONE (21:27)
[2025-01-21] MEDS: cefTAZidime 1 GM in SODIUM CHL 0.9% 50 ML IV SCH (21:29)
[2025-01-22] VITALS (7 sets, daily range): BP systolic 121–148; BP diastolic 58–83; PULSE 76–80; RESP 15–17; TEMP 96.8–98.3; O2SAT 93–98
--- NOTE | 2025-01-22 11:40 | DVHPN2 ---
Progress Note - Dictate Date Seen: Jan 22, 2025 Medical Necessity Reason Pt with a Central, PICC or Fol: No Subjective no acute issues overnight vital signs Vital Sign Date Time Temp Pulse Resp B/P (MAP) Pulse Ox O2 Delivery O2 Flow Rate FiO2 01/22/25 09:30 98.0 98.0 01/22/25 09:00 78 15 121/62 (81) 93 01/22/25 08:30 Room Air* 0 21 Total Intake and Output 01/21/25 01/21/25 01/22/25 15:00 23:00 07:00 Intake Total 100 ml 1750 ml 450 ml Output Total 150 ml 25 ml Balance 100 ml 1600 ml 425 ml medications Current Medications Medications Dose Ordered Sig/Rios Route Start Time Stop Time Status Last Admin Dose Admin Acetaminophen 325 mg Q4HP PRN PO 01/17/25 22:15 Acetaminophen/ Hydrocodone Bitart 1 tab Q4HP PRN PO 01/17/25 22:15 Docusate Sodium 100 mg BIDPRN PRN PO 01/17/25 22:15 Amlodipine Besylate 10 mg DAILY PO 01/18/25 10:00 Cancel Atorvastatin Calcium 40 mg HS PO 01/18/25 22:00 01/21/25 21:28 40 MG Aspirin 81 mg DAILY PO 01/18/25 10:00 01/22/25 08:49 81 MG Pantoprazole Sodium 40 mg DAILY@0600 PO 01/18/25 06:00 01/22/25 05:14 40 MG Heparin Sodium (Porcine) 5,000 units Q12HR SC 01/18/25 10:00 01/22/25 10:30 5,000 UNITS Vancomycin HCl 0 ml @ 0 mls/hr UD IV 01/18/25 15:15 Ceftazidime/ Dextrose 1 gm/ Sodium Chloride 50 ml @ 16.667 mls/ hr DAILY@2200 IV 01/21/25 22:00 01/21/25 21:29 16.667 MLS/HR objective Awake alert oriented x3 HEENT: Normocephaly, no JVD Lungs: Bilateral good air entry CVS: S1, S2 regular rate rhythm Abdomen: Soft, bowel sounds present 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 Cx showing Klebsiella pneumonia Left heel nonhealing ulcer with probable osteomyelitis Hypotension Hypokalemia Hyponatremia Assessment/Plan . HD on MWF schedule stable from renal standpoint We will make arrangements for antibiotics at the dialysis center. Primary wants the patient to be on vancomycin and ceftazidime for six weeks. Dietary Evaluation Review Comments: Nutrition Recommendation 1) CCHO 75gm + renal standard diet 2) Nephro-bahman 1 tab daily 3) Marcio 1 pk daily 4) Monitor PO intake, lab values, weight trend, and I/O Expected Outcomes/Goals: Wound to improve Lab values to improve Fu 3-5 days Plan discussed with: Patient BJ ESPINOSA MD Jan 22, 2025 11:40
--- NOTE | 2025-01-22 17:52 | DVHPN2 ---
Subjective Patient's repeat blood cultures are negative. Patient denies any complaints, once antibiotics with dialysis has been arranged patient can be discharged. Changes from previous H/P or p: No Changes Eyes: No Pain, No Vision change, No Conjunctivae inflammation, No Eyelid inflammation, No Other, No Redness ENT: No Ear pain, No Ear discharge, No Nose pain, No Nose discharge, No Nose congestion, No Mouth pain, No Mouth swelling, No Throat pain, No Throat swelling, No Other Cardiovascular: No Chest Pain, No Palpitations, No Orthopnea, No Paroxysmal Noc. Dyspnea, No Edema, No Lt Headedness, No Other Respiratory: No Cough, No Dry, No Shortness of breath, No SOB with excertion, No Wheezing, No Hemoptysis, No Pleuritic Pain, No Sputum, No Other Gastrointestinal: Nausea; No Vomiting, No Abdominal Pain, No Diarrhea, No Constipation, No Melena, No Hematochezia, No Other Genitourinary: No Dysuria, No Frequency, No Incontinence, No Hematuria, No Retention, No Other Musculoskeletal: No other, No neck pain, No shoulder pain, No arm pain, No back pain, No hand pain, No leg pain, No foot pain Skin: No Rash, No Lesions, No Jaundice, No Bruising, No Other Objective Vitals Vital Signs Date Time Temp Pulse Resp B/P (MAP) Pulse Ox O2 Delivery O2 Flow Rate FiO2 01/22/25 17:00 97.4 76 15 148/83 (104) 98 97.4 01/22/25 08:30 Room Air* 0 21 Intake/Output Intake and Output 01/22/25 07:00 Intake Total 2300 ml Output Total 175 ml Balance 2125 ml Intake Oral 2150 ml IV Total 150 ml Output Urine Total 175 ml # Bowel Movements 1 Exam HEENT pupils are reactive Neck is supple CV is S1-S2 regular rate and rhythm Diminished breath sounds bases GI positive bowel sounds Extremity no 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 Medications Current Medications Medications Dose Ordered Sig/Rios Route Start Time Stop Time Status Last Admin Dose Admin Acetaminophen 325 mg Q4HP PRN PO 01/17/25 22:15 Acetaminophen/ Hydrocodone Bitart 1 tab Q4HP PRN PO 01/17/25 22:15 Docusate Sodium 100 mg BIDPRN PRN PO 01/17/25 22:15 Amlodipine Besylate 10 mg DAILY PO 01/18/25 10:00 Cancel Atorvastatin Calcium 40 mg HS PO 01/18/25 22:00 01/21/25 21:28 40 MG Aspirin 81 mg DAILY PO 01/18/25 10:00 01/22/25 08:49 81 MG Pantoprazole Sodium 40 mg DAILY@0600 PO 01/18/25 06:00 01/22/25 05:14 40 MG Heparin Sodium (Porcine) 5,000 units Q12HR SC 01/18/25 10:00 01/22/25 10:30 5,000 UNITS Vancomycin HCl 0 ml @ 0 mls/hr UD IV 01/18/25 15:15 Ceftazidime/ Dextrose 1 gm/ Sodium Chloride 50 ml @ 16.667 mls/ hr DAILY@2200 IV 01/21/25 22:00 01/21/25 21:29 16.667 MLS/HR Laboratory Results Laboratory Tests 01/19/25 14:59 01/21/25 06:37 Microbiology Microbiology Date/Time Source Procedure Growth Status 01/18/25 10:22 Blood Blood Culture - Preliminary NO GROWTH AFTER 72 HOURS OF INCUBATION. Resulted Assessment/Plan Assessment/Plan 59-year-old female with a known history of diabetes mellitus type 2, hypertension, dyslipidemia, end-stage renal disease on hemodialysis who was seen by Nephrology as an outpatient was sent for positive blood cultures. 1. Gram-negative bacteremia in the outpatient settings, repeat blood cultures are negative 2. Generalized weakness 3.End-stage renal disease on hemodialysis 4. Diabetes mellitus type 2 5. Hypertension 6. Dyslipidemia 7. Diabetic foot wound left foot with a suspected osteomyelitis -continue current IV antibiotics podiatry consultation appreciated. -we will arrange IV antibiotics with the dialysis. -consult social work instructor for arrangement of antibiotics with dialysis. Plan discussed with: Patient Date of Service: Jan 22, 2025 Billing Provider: EDGARD MARCOS MD Common Visit Codes: [id number] INP/OBS CARE(MOD) EDGARD MARCOS MD Jan 22, 2025 17:52
[2025-01-23] VITALS (8 sets, daily range): BP systolic 149–160; BP diastolic 69–83; PULSE 73–95; RESP 16–20; TEMP 96.8–98.8; O2SAT 95–99
[2025-01-23 06:56] LABS: Hematocrit 26.8 % (36.0-46.0); Hemoglobin 9.2 g/dL (12.2-16.2); Mean Corpuscular Hemoglobin 32.9 pg (28.0-32.0); Mean Corpuscular Volume 96.1 fL (80.0-100.0); Nucleated Red Blood Cells % 0.1 %
--- NOTE | 2025-01-23 15:14 | DVHPN2 ---
Progress Note - Dictate Date Seen: Jan 23, 2025 Medical Necessity Reason Pt with a Central, PICC or Fol: No Subjective no acute issues overnight vital signs Vital Sign Date Time Temp Pulse Resp B/P (MAP) Pulse Ox O2 Delivery O2 Flow Rate FiO2 01/23/25 09:00 96.8 95 18 155/82 (106) 95 96.8 01/23/25 08:00 Room Air* 0 21 Total Intake and Output 01/22/25 01/22/25 01/23/25 15:00 23:00 07:00 Intake Total 2560 ml 1780 ml Output Total 1200 ml 800 ml Balance 1360 ml 980 ml medications Current Medications Medications Dose Ordered Sig/Rios Route Start Time Stop Time Status Last Admin Dose Admin Acetaminophen 325 mg Q4HP PRN PO 01/17/25 22:15 Acetaminophen/ Hydrocodone Bitart 1 tab Q4HP PRN PO 01/17/25 22:15 Docusate Sodium 100 mg BIDPRN PRN PO 01/17/25 22:15 Amlodipine Besylate 10 mg DAILY PO 01/18/25 10:00 Cancel Atorvastatin Calcium 40 mg HS PO 01/18/25 22:00 01/22/25 21:06 40 MG Aspirin 81 mg DAILY PO 01/18/25 10:00 01/22/25 08:49 81 MG Pantoprazole Sodium 40 mg DAILY@0600 PO 01/18/25 06:00 01/23/25 05:18 40 MG Heparin Sodium (Porcine) 5,000 units Q12HR SC 01/18/25 10:00 01/22/25 21:05 5,000 UNITS Vancomycin HCl 0 ml @ 0 mls/hr UD IV 01/18/25 15:15 Ceftazidime/ Dextrose 1 gm/ Sodium Chloride 50 ml @ 16.667 mls/ hr DAILY@2200 IV 01/21/25 22:00 01/22/25 21:06 16.667 MLS/HR objective Awake alert oriented x3 HEENT: Normocephaly, no JVD Lungs: Bilateral good air entry CVS: S1, S2 regular rate rhythm Abdomen: Soft, bowel sounds present 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 Cx showing Klebsiella pneumonia Left heel nonhealing ulcer with probable osteomyelitis Hypotension Hypokalemia Hyponatremia Assessment/Plan HD on MWF schedule We will make arrangements for antibiotics at the dialysis center. Primary wants the patient to be on vancomycin and ceftazidime for six weeks. Can be discharged from renal standpoint Dietary Evaluation Review Comments: Nutrition Recommendation 1) CCHO 75gm + renal standard diet 2) Nephro-bahman 1 tab daily 3) Marcio 1 pk daily 4) Monitor PO intake, lab values, weight trend, and I/O Expected Outcomes/Goals: Wound to improve Lab values to improve Fu 3-5 days Plan discussed with: Patient BJ ESPINOSA MD Jan 23, 2025 15:14
--- NOTE | 2025-01-23 17:19 | DVHDS2 ---
Discharge Summary Date of Admission Jan 17, 2025 at 22:08 Date of Discharge: Jan 23, 2025 Labs/Diagnostic Data: Laboratory Results Test 01/23/25 06:34 01/19/25 14:59 01/19/25 06:14 01/18/25 10:22 White Blood Count 7.2 10^3/uL (4.4-10.8) Red Blood Count 2.79 10^6/uL (4.0-5.20) Hemoglobin 9.2 g/dL (12.2-16.2) Hematocrit 26.8 % (36.0-46.0) Mean Corpuscular Volume 96.1 fL (80.0-100.0) Mean Corpuscular Hemoglobin 32.9 pg (28.0-32.0) Mean Corpuscular Hemoglobin Concent 34.2 g/dL (32.0-36.0) Red Cell Distribution Width 13.6 % (11.8-14.3) Platelet Count 252 10^3/uL (140-450) Mean Platelet Volume 7.5 fL (6.9-10.8) Neutrophils (%) (Auto) 72.1 % (37.0-80.0) Lymphocytes (%) (Auto) 17.7 % (10.0-50.0) Monocytes (%) (Auto) 6.4 % (0.0-12.0) Eosinophils (%) (Auto) 2.6 % (0.0-7.0) Basophils (%) (Auto) 1.2 % (0.0-2.0) Neutrophils # (Auto) 5.2 10 ^3/uL (1.6-8.6) Lymphocytes # (Auto) 1.3 10 ^3/uL (0.4-5.4) Monocytes # (Auto) 0.5 10 ^3/uL (0-1.3) Eosinophils # (Auto) 0.2 10 ^3/uL (0-0.8) Basophils # (Auto) 0.1 10 ^3/uL (0-0.2) Nucleated Red Blood Cells 0.1 % Creatinine 7.01 mg/dL (0.550-1.02) Glomerular Filtration Rate Calc 6 mL/min (>90) Random Vancomycin Level 18.6 ug/mL (5-10) Sodium Level 136 mmol/L (136-145) Potassium Level 3.4 mmol/L (3.5-5.1) Chloride Level 97 mmol/L (98-107) Carbon Dioxide Level 32 mmol/L (20-31) Anion Gap 7 (5-15) Blood Urea Nitrogen 11 mg/dL (9-23) BUN/Creatinine Ratio 2.6 (10.0-20.0) Serum Glucose 158 mg/dL (74-106) Calcium Level 8.2 mg/dL (8.7-10.4) Differential Total Cells Counted 100.0 (100) Neutrophils % (Manual) 95 (37.0-80.0) Band Neutrophils % (Manual) 0 Lymphocytes % (Manual) 3 (10.0-50.0) Monocytes % (Manual) 2 (0-12) Eosinophils % (Manual) 0 (0-7) Basophils % (Manual) 0 (0.0-2.0) Metamyelocytes % (manual) 0 Myelocytes % (Manual) 0 Promyelocytes % (Manual) 0 Blast Cells % (Manual) 0 Reactive Lymphocytes 0 Platelet Estimate Adequate Hepatitis A IgM Antibody Negative Hepatitis B Surface Antigen Negative (Negative) Hepatitis B Core IgM Antibody Negative (Negative) Hepatitis C Antibody Negative (Negative) Prothrombin Time 11.2 sec (9.3-11.8) Prothrombin Time INR 1.06 (0.9-1.15) Activated Partial Thromboplast Time 23.4 SEC (24.5-34.5) Test 01/18/25 10:13 01/18/25 07:19 01/18/25 03:41 Influenza Type A Antigen Negative (Negative) Influenza Type B Antigen Negative (Negative) SARS-CoV-2 Antigen (Rapid) Negative (NEGATIVE) Hemoglobin A1c 6.4 % A1C (<5.7) Magnesium Level 2.1 mg/dL (1.6-2.6) Total Bilirubin 0.3 mg/dL (0.2-1.0) Aspartate Amino Transferase (AST) 27 U/L (13-40) Alanine Aminotransferase (ALT) 27 U/L (7-40) Alkaline Phosphatase 63 U/L (46-116) Total Protein 7.3 g/dL (5.7-8.2) Albumin 4.2 g/dL (3.2-4.8) Triglycerides Level 284 mg/dL (< 150) Cholesterol Level 151 mg/dL (< 200) LDL Cholesterol 80 mg/dL (< 100) HDL Cholesterol 19 mg/dL (40-59) Thyroid Stimulating Hormone (TSH) 3.46 uIU/mL (0.55-4.78) Other Laboratory Tests 01/23/25 06:34 01/19/25 14:59 Brief Hx & Hospital Course: 59-year-old female with a known history of diabetes mellitus type 2, hypertension, dyslipidemia, end-stage renal disease on hemodialysis who was seen by Nephrology as an outpatient was sent for positive blood cultures. Patient's was found to have Gram-negative bacteremia with a laughlin sensitivity. Patient was receiving vancomycin as well as ceftazidime. Patient needs six weeks of IV antibiotics because of diabetic foot left foot with suspected osteomyelitis. Patient will be getting vancomycin and Fortaz as RN with the each dialysis for six weeks. Surgery the beta we will be arranging antibiotics as an outpatient. Condition at Discharge: Stable Final Diagnosis/Problems List 59-year-old female with a known history of diabetes mellitus type 2, hypertension, dyslipidemia, end-stage renal disease on hemodialysis who was seen by Nephrology as an outpatient was sent for positive blood cultures. 1. Gram-negative bacteremia in the outpatient settings, repeat blood cultures are negative 2. Generalized weakness 3.End-stage renal disease on hemodialysis 4. Diabetes mellitus type 2 5. Hypertension 6. Dyslipidemia 7. Diabetic foot wound left foot with a suspected osteomyelitis Discharge Disposition: Home SNF Discharge Will this Physician continue t: No Discharge Instruct/Medications Diet: Cardiac 2g Na,low cholest Diet comment: 1999 ADA diet. Activity: No Restrictions, As Tolerated Follow Up/Referral: Follow up with the PCP in one week Follow up with the Infectious Disease specialist Dr. Mik scott in two weeks. Medications: Vancomycin 1 g IV after hemodialysis for six weeks Fortaz 2 g IV after each dialysis for six weeks Continued Medications: Amlodipine Besylate (Norvasc Tablet) 5 Mg Tb 10 MG PO DAILY, #30 TAB Aspirin (Asa) 81 Mg Ch 81 MG PO DAILY, #30 TAB.CHEW Atorvastatin Calcium (Atorvastatin Calcium) 20 Mg Tab 20 MG PO HS, #30 TAB Hydrocodone-Acetaminophen (Hydrocodone Bitartrate/AC 5-325 mg) 1 Tab Tab 1 TAB PO Q8HP PRN, #10 TAB Metoprolol Tartrate (Lopressor) 25 Mg Tb 25 MG PO BID, #60 TAB Naloxone HCl (Narcan) 4 Mg/0.1 Ml Spr 4 MG NA RESEARCH AND EVALUATION ANALYST, #2 SPRAY Pantoprazole Sodium Sesquihydr (Pantoprazole Sodium) 40 Mg Tab 40 MG PO DAILY, #30 TAB Sodium Bicarbonate (Sodium Bicarbonate) 650 Mg Tab 650 MG PO BID, #60 TAB Discontinued Medications: Cephalexin Monohydrate (Cephalexin) 500 Mg Tab 500 MG PO DAILY for 5 Days, #5 TAB Scheduled Amlodipine Besylate (Norvasc Tablet), 10 MG PO DAILY Aspirin (Asa), 81 MG PO DAILY Atorvastatin Calcium (Atorvastatin Calcium), 20 MG PO HS Cephalexin Monohydrate (Cephalexin), 500 MG PO DAILY Metoprolol Tartrate (Lopressor), 25 MG PO BID Naloxone HCl (Narcan), 4 MG NA RESEARCH AND EVALUATION ANALYST Pantoprazole Sodium Sesquihydr (Pantoprazole Sodium), 40 MG PO DAILY Sodium Bicarbonate (Sodium Bicarbonate), 650 MG PO BID Scheduled PRN Hydrocodone-Acetaminophen (Hydrocodone Bitartrate/AC 5-325 mg), 1 TAB PO Q8HP PRN Discharge Statement: "Patient was advised to return to the ER or call 911 if any headaches, dizziness, shortness of breath, chest pain, abdominal pain, bleeding, fevers, or worsening of medical condition. Patient was counseled about treatment plan, medications, possible side effects, patientverbalized understanding. All questions were answered to the best of my ability. This discharge took greater then 30 minutes in planning, reviewing documentation, counseling the patient, and discussing with other team members." ASSESSMENT ASSESSMENT Assessment 59-year-old female with a known history of diabetes mellitus type 2, hypertension, dyslipidemia, end-stage renal disease on hemodialysis who was seen by Nephrology as an outpatient was sent for positive blood cultures. 1. Gram-negative bacteremia in the outpatient settings, repeat blood cultures are negative 2. Generalized weakness 3.End-stage renal disease on hemodialysis 4. Diabetes mellitus type 2 5. Hypertension 6. Dyslipidemia 7. Diabetic foot wound left foot with a suspected osteomyelitis Date of Service: Jan 23, 2025 Billing Provider: EDGARD MARCOS MD Common Visit Codes: 04199-AMQ/OBS DISCH DAY >30min EDGARD MARCOS MD Jan 23, 2025 17:19
== END 2025-01-23 20:04 | disposition home or self-care (01) | DRG 177 ==
LOC: ER 13:04 → EDBD 13:04 → OVERFLOW 22:08 → WEST WING 01-18 13:00
PROVIDERS: ADMIT Internal Medicine; ATTEND Internal Medicine
PROC: 5A1D70Z Performance of Urinary Filtration, Intermittent, Less than 6 Hours Per Day (ICD-10-PCS; principal; 2025-01-19)
PROC: 5A1D70Z Performance of Urinary Filtration, Intermittent, Less than 6 Hours Per Day (ICD-10-PCS; 2025-01-21)
DX: J15.0 Pneumonia due to Klebsiella pneumoniae (principal); N18.6 End stage renal disease; E87.1 Hypo-osmolality and hyponatremia; M86.8X7 Other osteomyelitis, ankle and foot; I12.0 Hypertensive chronic kidney disease with stage 5 chronic kidney disease or end stage renal disease; L97.429 Non-pressure chronic ulcer of left heel and midfoot with unspecified severity; E11.69 Type 2 diabetes mellitus with other specified complication; E87.6 Hypokalemia; E11.22 Type 2 diabetes mellitus with diabetic chronic kidney disease; E11.621 Type 2 diabetes mellitus with foot ulcer; E66.9 Obesity, unspecified; D63.8 Anemia in other chronic diseases classified elsewhere; E78.5 Hyperlipidemia, unspecified; B96.89 Other specified bacterial agents as the cause of diseases classified elsewhere; Z99.2 Dependence on renal dialysis; Z87.440 Personal history of urinary (tract) infections; Z68.34 Body mass index [BMI] 34.0-34.9, adult; Z82.49 Family history of ischemic heart disease and other diseases of the circulatory system; Z82.3 Family history of stroke; Z80.3 Family history of malignant neoplasm of breast; Z79.82 Long term (current) use of aspirin; Z83.3 Family history of diabetes mellitus; Z87.442 Personal history of urinary calculi
CPT/HCPCS: 36415; 71045; 73718; 80048; 80053; 80061; 80074; 80202; 82565; 83036; 83735; 84443; 85007; 85025; 85027; 85610; 85730; 87040; 87426; 87804; 90935; 93306; G0378; Q0162